=== PATIENT | female | born 1985 | race Caucasian/White ===

== ENCOUNTER 2022-12-06 09:33 | Outpatient (OUT) | payer OTHER, SELFPAY ==
--- NOTE | 2022-12-06 09:33 | US_ITS ---
The [address] [address] Patient Name: WATSON KWON MRN: [id number] date: 1985 Sex: F Assigned Patient Location: US Current Patient Location: US Accession/Order Number: [id number] Exam Date: 12/06/2022 09:32 Report Date: 12/06/2022 10:20 At the request of: VICKY SOTO Procedure: US OB transvaginal EXAMINATION: US OB transvaginal HISTORY: MISSED PERIOD COMPARISON: No relevant comparison available. FINDINGS: GESTATIONAL SAC: Present and normal appearing. YOLK SAC: Present and normal appearing. POLE: Present and normal appearing. CARDIAC: Present. UTERUS: Normal size and appearance. OVARIES: Right: Corpus lutein cyst. Left: Not seen. CERVIX: 4.1 cm in length and closed. CUL-DE-SAC: Normal. OTHER: None. AGE BY LMP: 9 weeks 4 days [place] BY LMP: 07/07/2023 AGE BY US CRL: 9 weeks 5 days [place] BY US CRL: 07/06/2023 IMPRESSION: 1. Single live intrauterine . Electronically authenticated by: MARK NI Date: 12/06/2022 10:20
== END 2022-12-06 09:34 | disposition home or self-care (01) ==
LOC: US 09:33
PROVIDERS: Visit Provider Obstetrics & Gynecology
DX: Z34.91 Encounter for supervision of normal pregnancy, unspecified, first trimester (principal); Z3A.09 9 weeks gestation of pregnancy; N92.6 Irregular menstruation, unspecified
CPT/HCPCS: 76817

== ENCOUNTER 2022-12-13 09:40 | Outpatient (OUT) | payer OTHER, SELFPAY ==
[2022-12-13 10:28] LABS: Basophils Percent Auto 0.5 % (0.2-2.0); Eosinophils Absolute Auto 0.1 10^3/uL (0.0-0.7); Hemoglobin 13.7 g/dL (12.0-16.0); Immature Granulocytes Abs Auto 0.04 10^3/uL (0.00-0.03); Immature Granulocytes Pct Auto 0.5 % (0.0-0.5); Lymphocytes Absolute Auto 1.3 10^3/uL (1.2-3.8); Lymphocytes Percent Auto 15.1 % (20.5-60.0); Mean Corpuscular HGB Conc 35.1 g/dL (29.9-35.2); Mean Corpuscular Hemoglobin 30.1 pg (26.7-34.0); Mean Corpuscular Volume 85.7 fL (81.0-99.0); Mean Platelet Volume 10.3 fL (9.5-13.5); Monocytes Absolute Auto 0.5 10^3/uL (0.3-0.8); Monocytes Percent Auto 5.9 % (1.7-12.0); Neutrophils Absolute Auto 6.7 10^3/uL (1.4-6.5); Platelet Count 229 10^3/uL (150-450); Red Blood Count 4.55 10^6/uL (4.20-5.40); Red Cell Distribution Width 12.9 % (11.0-15.0); White Blood Count 8.7 10^3/uL (4.0-11.0)
[2022-12-13 11:06] LABS: Estimated Average Glucose 100 mg/dL; Glycohemoglobin A1C 5.1 % (4.5-6.2)
[2022-12-13 13:28] LABS: BOX Test Sent Out YES
[2022-12-14 05:07] LABS: HCV Ab Non Reactive (Non Reactive); HIV Ab/p24 Ag Screen Non Reactive (Non Reactive); Rubella Antibodies, IgG 1.52 index (Immune >0.99)
[2022-12-14 06:08] LABS: HBsAg Screen Negative (Negative)
[2022-12-14 10:08] LABS: Rapid Plasma Reagin, Quant Non Reactive (NonRea<1:1)
== END 2022-12-13 09:41 | disposition home or self-care (01) ==
LOC: LAB 09:40
PROVIDERS: Visit Provider Obstetrics & Gynecology
DX: N92.5 Other specified irregular menstruation (principal); Z34.80 Encounter for supervision of other normal pregnancy, unspecified trimester; Z31.430 Encounter of female for testing for genetic disease carrier status for procreative management
CPT/HCPCS: 36415; 83036; 84443; 85025; 86592; 86762; 86803; 86850; 86900; 86901; 87086; 87340; 87389

== ENCOUNTER 2023-02-18 08:56 | Outpatient (OUT) | payer OTHER, SELFPAY ==
--- NOTE | 2023-02-18 | US_ITS ---
[address] [address] Patient Name: WATSON KWON MRN: [id number] date: 1985 Sex: F Assigned Patient Location: US Current Patient Location: Accession/Order Number: [id number] Exam Date: 02/18/2023 09:01 Report Date: 02/18/2023 17:43 At the request of: VICKY SOTO Procedure: US OB anatomy EXAMINATION: US OB anatomy HISTORY: ANATOMY COMPARISON: No relevant comparison available. TECHNIQUE: Transabdominal sonographic examination was performed for obstetrical and evaluation. FINDINGS: Number: 1 Heart Rate: 142.0 bpm H.B. /min Amniotic Fluid Volume: Subjectively normal position: Transverse lie, transverse presentation Placental Location: FUNDAL, grade 0. Placental edge 4.9 cm from the internal cervical os Cervix Length: 4 cm , closed Normal anatomy: Lateral ventricles, cerebellum, posterior fossa, orbits, diaphragm, stomach, abdominal cord insertion, bladder, umbilical arteries, extremities Suboptimal visualization, nose/lips, four-chamber heart Nonvisualized anatomy: RVOT, LVOT, kidneys, three-vessel cord, lumbar spine BIOMETRY: BPD: 4.7 cm 20 weeks 1 days , 48% HC: 17.5 cm 20 weeks 0 days, 34% AC: 14.8 cm 20 weeks 0 days, 41% FL: 3.3 cm 20 weeks 3 days, 52% EFW:338.4 grams; 12 ounces, 49% FL/AC: 22.5 FL/BPD: 71.5 HC/AC: 1.2 GESTATIONAL AGE: Age by EDC: 20 weeks 1 days [place] by EDC: 07/07/2023 Age by current US: 20 weeks 1 days [place] by current US: 07/07/2023 US/US OB anatomy IMPRESSION: Suboptimal anatomy detailed above, otherwise normal anatomy scan *Reference: [facility] Practice Guideline for the performance of Obstetric Ultrasound Examinations, March 16, 2007. Electronically authenticated by: LOWELL BARRAZA Date: 02/18/2023 17:43
== END 2023-02-18 08:57 | disposition home or self-care (01) ==
LOC: US 08:58
PROVIDERS: Visit Provider Obstetrics & Gynecology
DX: Z34.92 Encounter for supervision of normal pregnancy, unspecified, second trimester (principal)
CPT/HCPCS: 76805; 76817

== ENCOUNTER 2023-03-05 12:59 | Outpatient (OUT) | payer OTHER, SELFPAY ==
--- NOTE | 2023-03-05 13:01 | US_ITS ---
[address] [address] Patient Name: WATSON KWON MRN: [id number] date: 1985 Sex: F Assigned Patient Location: US Current Patient Location: US Accession/Order Number: [id number] Exam Date: 03/05/2023 13:02 Report Date: 03/05/2023 15:27 At the request of: VICKY SOTO Procedure: US OB incomplete anatomy EXAM: US OB incomplete anatomy HISTORY: INCOMPLETE ANATOMY COMPARISON: Ultrasound OB anatomy 02/18/2023 TECHNIQUE: Transabdominal ultrasound evaluation. FINDINGS: Presentation: Cephalic Heart rate: 130 bpm Anatomy: Hard palate, lumbar spine, cardiac outflow tracts, three-vessel cord, kidneys, four-chamber heart. No appreciable abnormality. GA: 22 weeks 2 days [place]: 07/07/2023 US/US OB incomplete anatomy IMPRESSION: 1. Single live intrauterine . 2. Adequate visualization of the above listed structures; no appreciable abnormality. Electronically authenticated by: MARK NI Date: 03/05/2023 15:27
== END 2023-03-05 13:00 | disposition home or self-care (01) ==
LOC: US 12:59
PROVIDERS: Visit Provider Obstetrics & Gynecology
DX: Z36.2 Encounter for other antenatal screening follow-up (principal)
CPT/HCPCS: 76815

== ENCOUNTER 2023-03-27 07:42 | Outpatient (OUT) | payer OTHER, SELFPAY ==
[2023-03-27 09:21] LABS: Glucose 1 Hour 109 mg/dL
[2023-03-27 09:23] LABS: Basophils Percent Auto 0.3 % (0.2-2.0); Eosinophils Absolute Auto 0.1 10^3/uL (0.0-0.7); Eosinophils Percent Auto 0.8 % (0.9-7.0); Hematocrit 34.3 % (36.0-48.0); Hemoglobin 11.7 g/dL (12.0-16.0); Immature Granulocytes Abs Auto 0.05 10^3/uL (0.00-0.03); Immature Granulocytes Pct Auto 0.7 % (0.0-0.5); Lymphocytes Absolute Auto 1.2 10^3/uL (1.2-3.8); Lymphocytes Percent Auto 15.4 % (20.5-60.0); Mean Corpuscular HGB Conc 34.1 g/dL (29.9-35.2); Mean Corpuscular Hemoglobin 31.2 pg (26.7-34.0); Mean Corpuscular Volume 91.5 fL (81.0-99.0); Mean Platelet Volume 10.4 fL (9.5-13.5); Monocytes Absolute Auto 0.5 10^3/uL (0.3-0.8); Monocytes Percent Auto 6.5 % (1.7-12.0); Neutrophils Absolute Auto 5.9 10^3/uL (1.4-6.5); Neutrophils Percent Auto 76.3 % (43.0-75.0); Platelet Count 205 10^3/uL (150-450); Red Blood Count 3.75 10^6/uL (4.20-5.40); Red Cell Distribution Width 12.2 % (11.0-15.0); White Blood Count 7.7 10^3/uL (4.0-11.0)
== END 2023-03-27 07:43 | disposition home or self-care (01) ==
PROVIDERS: Visit Provider Physician Assistant
DX: Z34.92 Encounter for supervision of normal pregnancy, unspecified, second trimester (principal)
CPT/HCPCS: 36415; 82950; 85025

== ENCOUNTER 2023-04-16 09:22 | Outpatient (OUT) | payer OTHER, SELFPAY ==
--- NOTE | 2023-04-16 09:24 | US_ITS ---
[address] [address] Patient Name: WATSON KWON MRN: [facility]:[id number] date: 1985 Sex: F Assigned Patient Location: US Current Patient Location: US Accession/Order Number: [id number] Exam Date: 04/16/2023 09:25 Report Date: 04/16/2023 16:53 At the request of: VICKY SOTO Procedure: US OB growth PROCEDURE: US OB growth HISTORY: SIZE INCONSISTENT WITH DATES COMPARISON: None. TECHNIQUE: Transabdominal sonographic examination was performed for obstetrical and evaluation. FINDINGS: Number: 1 Heart Rate: 145.0 bpm H.B. /min Amniotic Fluid Volume: 9.2 cm, oligohydramnios, largest pocket 3.6 cm position: Cephalic presentation, longitudinal lie Placental Location: Blank BIOMETRY: BPD: 7.3 cm 29 weeks 2 days , 72% HC: 27.4 cm 29 weeks 6 days , 68% AC:22.3 cm 26 weeks 5 days , 8% FL: 5.3 cm 28 weeks 1 days , 32% EFW: 1115.6 grams 2 lbs. 11 oz., 19% FL/AC: 23.8 FL/BPD: 72.6 HC/AC: 1.2 GESTATIONAL AGE: Age by EDC: 28 weeks 2 days [place] by EDC: 07/07/2023 Ultrasound Age: 28 weeks 4 days Ultrasound [place]: 07/05/2023 head measurements were suboptimal secondary to position US/US OB growth IMPRESSION: Oligohydramnios *Reference: [facility] Practice Guideline for the performance of Obstetric Ultrasound Examinations, March 16, 2007. Electronically authenticated by: LOWELL BARRAZA Date: 04/16/2023 16:53
== END 2023-04-16 09:23 | disposition home or self-care (01) ==
LOC: US 09:22
PROVIDERS: Visit Provider Obstetrics & Gynecology
DX: O26.843 Uterine size-date discrepancy, third trimester (principal); O41.03X0 Oligohydramnios, third trimester, not applicable or unspecified; Z3A.28 28 weeks gestation of pregnancy
CPT/HCPCS: 76816

== ENCOUNTER 2023-04-16 11:41 | Observation (INO) | payer OTHER, SELFPAY ==
[2023-04-16 12:40] VITALS: BP 139/77; PULSE 78
[2023-04-16] MEDS: 0.9 % SODIUM CHLORIDE 1,000 ML 1000 ML IV ×2 (12:40→13:39)
[2023-04-16 15:45] VITALS: BP 133/77; PULSE 86
--- NOTE | 2023-04-16 19:37 | W.PC.ACHO ---
Registration Status: ADM JEAN MARIE Primary Language: Preferred Language: Active Medications Generic Name Dose Route Start Last Admin Trade Name Octavio PRN Reason Stop Dose Admin Labetalol HCl 200 mg 04/16/23 21:00 Labetalol Hcl 200 Mg Tablet PO BID MICKY Diet Category Date Time Status Regular Consistency Diet Diet 04/16/23 12:18 Active IV Insertion/Site Date of IV Line Insertion [ 04/16/23 Short PIV (<1.75 in) 20g left Wrist] IV Insertion Time [Short PIV ( 12:38 <1.75 in) 20g left Wrist]
[2023-04-16 20:09] VITALS: BP 143/84; PULSE 85
[2023-04-16 20:10] VITALS: TEMP 37.2
[2023-04-16] MEDS: 0.9 % SODIUM CHLORIDE 1,000 ML 150 ML IV (20:18)
[2023-04-16] MEDS: LABETALOL HCL 200 MG TABLET PO (20:52)
[2023-04-16 22:54] VITALS: BP 134/68; PULSE 73
[2023-04-17] MEDS: 0.9 % SODIUM CHLORIDE 1,000 ML 150 ML IV (03:00)
--- NOTE | 2023-04-17 08:00 | US_ITS ---
[address] [address] Patient Name: WATSON KWON MRN: [id number] date: 1985 Sex: F Assigned Patient Location: US Current Patient Location: US Accession/Order Number: [id number] Exam Date: 04/17/2023 07:35 Report Date: 04/17/2023 17:37 At the request of: VICKY SOTO Procedure: US OB BPP w non-stress EXAMINATION: US OB BPP w non-stress HISTORY: oligo COMPARISON: No relevant comparison available. TECHNIQUE: Ultrasound biophysical profile was performed in the radiology department. . FINDINGS: BREATHING MOVEMENTS: 2.0 GROSS BODY MOVEMENTS: 2.0 TONE: 2.0 QUALITATIVE AMNIOTIC FLUID VOLUME: 2.0 PRESENTATION: CEPHALIC HEART RATE: 140.6 bpm H.B./min AMNIOTIC FLUID VOLUME: 11.7 cm cm GESTATIONAL AGE: 28 weeks 3 days CONCLUSION: Total biophysical profile score: 8.0 Electronically authenticated by: LOWELL BARRAZA Date: 04/17/2023 17:37
== END 2023-04-17 09:10 | disposition home or self-care (01) ==
PROVIDERS: Admitting Provider Obstetrics & Gynecology; Visit Provider Obstetrics & Gynecology
DX: O26.843 Uterine size-date discrepancy, third trimester (principal); O41.03X0 Oligohydramnios, third trimester, not applicable or unspecified; Z3A.28 28 weeks gestation of pregnancy
CPT/HCPCS: 59025; 76816; 76818; G0378; G0379

== ENCOUNTER 2023-04-21 07:50 | Outpatient (OUT) | payer OTHER, SELFPAY ==
[2023-04-21 15:56] VITALS: BP 142/93; PULSE 86
[2023-04-21 16:07] VITALS: BP 139/89; PULSE 89
--- NOTE | 2023-04-21 16:12 | US_ITS ---
[address] [address] Patient Name: WATSON KWON MRN: [facility]:[id number] date: 1985 Sex: F Assigned Patient Location: [facility] Current Patient Location: Accession/Order Number: [id number] Exam Date: 04/21/2023 16:20 Report Date: 04/22/2023 16:48 At the request of: VICKY SOTO Procedure: US OB BPP w non-stress EXAMINATION: US OB BPP w non-stress HISTORY: OLIGOHYDRAMINOS COMPARISON: No relevant comparison available. TECHNIQUE: Ultrasound biophysical profile was performed in the radiology department. FINDINGS: BREATHING MOVEMENTS: 2.0 GROSS BODY MOVEMENTS: 2.0 TONE: 2.0 QUALITATIVE AMNIOTIC FLUID VOLUME: 2.0 PRESENTATION: CEPHALIC HEART RATE: 133.0 bpm H.B./min AMNIOTIC FLUID VOLUME: 12.9 cm cm GESTATIONAL AGE: 29 weeks 0 days CONCLUSION: Total biophysical profile score: 8.0 Electronically authenticated by: LOWELL BARRAZA Date: 04/22/2023 16:48
== END 2023-04-21 16:50 | disposition home or self-care (01) ==
LOC: US 07:51 → FBC 15:51
PROVIDERS: Visit Provider Obstetrics & Gynecology
DX: O41.03X0 Oligohydramnios, third trimester, not applicable or unspecified (principal); Z3A.29 29 weeks gestation of pregnancy
CPT/HCPCS: 76818

== ENCOUNTER 2023-04-24 07:16 | Outpatient (OUT) | payer OTHER, SELFPAY ==
[2023-04-24 15:58] VITALS: BP 144/85; PULSE 86
== END 2023-04-24 16:38 | disposition home or self-care (01) ==
LOC: FBCO 07:17 → FBC 15:51
PROVIDERS: Visit Provider Obstetrics & Gynecology
DX: O41.03X0 Oligohydramnios, third trimester, not applicable or unspecified (principal); Z3A.29 29 weeks gestation of pregnancy
CPT/HCPCS: 59025

== ENCOUNTER 2023-04-28 07:30 | Outpatient (OUT) | payer OTHER, SELFPAY ==
--- NOTE | 2023-04-28 | US_ITS ---
[address] [address] Patient Name: WATSON KWON MRN: [facility]:[id number] date: 1985 Sex: F Assigned Patient Location: US Current Patient Location: Accession/Order Number: [id number] Exam Date: 04/28/2023 16:00 Report Date: 04/29/2023 15:37 At the request of: VICKY SOTO Procedure: US OB BPP w non-stress EXAMINATION: US OB BPP w non-stress HISTORY: OLIGOHYDRAMNIOS COMPARISON: Ultrasound biophysical 04/21/2023 TECHNIQUE: Ultrasound biophysical profile was performed in the radiology department. BREATHING MOVEMENTS: 2.0 GROSS BODY MOVEMENTS: 2.0 TONE: 2.0 QUALITATIVE AMNIOTIC FLUID VOLUME: 2.0 PRESENTATION: CEPHALIC HEART RATE: 134.3 bpm bpm. AMNIOTIC FLUID VOLUME: 16.1 cm GESTATIONAL AGE: 30 weeks 0 days CONCLUSION: Total biophysical profile score 8.0. Electronically authenticated by: MARK NI Date: 04/29/2023 15:37
[2023-04-28 16:32] VITALS: BP 140/80; PULSE 76
--- OUTSIDE RECORDS SUMMARY | 2023-06-03 17:34 | XMS_ITS | CCD ---
Author Name Unknown Address [address] [place] [address] Organization [facility] Care Team Providers Care Broadcast Technician Name Role Phone PAY ., DR KING Attending Unavailable PAY ., DR KING Consulting Unavailable PAY ., DR KING Admitting Unavailable BRITTANY ., DR PERRY Attending Unavailable BRITTANY ., DR PERRY Consulting Unavailable BRITTANY ., DR PERRY Admitting Unavailable BRITTANY, VICKY Attending Unavailable KRYSTAL, DOMINICK Attending Unavailable KRYSTAL, DOMINICK Attending Unavailable Problems Active Problems Problem Classification Problem Date Documented Date Episodic/Chronic Immunizations and screening for infectious disease (1 source) Encounter for screening for human papillomavirus (HPV); Translations: [ENC SCREENING HUMAN PAPILLOMAVIRUS] Onset: 10-13-2022 Episodic Other screening for suspected conditions (not mental disorders or infectious disease) (4 sources) Encounter for screening for malignant neoplasm of cervix; Translations: [ENC SCREENING MALIG NEOPLASM CERV] Onset: 10-10-2022 Episodic Unclassified (3 sources) ENC OBS SUSP INSERTED FB RULED OUT; Translations: [ENC OBS SUSP INSERTED FB RULED OUT] Onset: 10-07-2022 Past or Other Problems Problem Classification Problem Date Documented Da te Episodic/Chronic Unclassified (1 source) ENC OBS SUSP INSERTED FB RULED OUT; Translations: [ENC OBS SUSP INSERTED FB RULED OUT] Onset: 10-04-2022 Results Test Name Value Interpretation Reference Range Facil ity PAP ACOG PANEL 2: 30 to 65on 10-17-2022 . . Normal [facility] Comment on above: Result Comment: Perf ormed at: WB Performed By: #### 4 [id number] #### [facility] [address] [place], [place] [address] Dr. Hebert Noyola Age Gdln ACOG Testing 30-65 Normal [facility] Comment on above: Performed By: #### 4 [id number] #### [facility] [address] [place] [address] Dr. Hebert Noyola DIAGNOSIS: Comment Normal [facility] Comment on above: Result Comment: NEGA TIVE FOR INTRAEPITHELIAL LESION OR MALIGNANCY. Performed at: WB Performed By: #### 4 [id number] #### [facility] [address] [place] [address] Dr. Hebert Noyola HPV Aptima Negative Normal Negative The [facility] Comment on above: Result Comment: This nucleic acid amplification test detects fourteen high-risk HPV types (16,18,31,33,35,39,45,51,52,56,58,59,66,68) without differentiation. Performed at: =G Performed By: #### 4 [id number] #### [facility] [address] [place] [address] Dr. Hebert Noyola HPV Genotype Reflex Comment Normal [facility] Comment on above: Result Comment: Crit eria not met, HPV Genotype not performed. Performed at: WB Performed By: #### 4 [id number] #### [facility] [address] [place] [address] Dr. Hebert Noyloa Methodology: Comment Normal [facility] Comment on above: Result Comment: This liquid based ThinPrep(R) pap test was screened with the use of an image guided system. Performed at: WB Performed By: #### 4 [id number] #### [facility] [address] [place] [address] Dr. Hebert Noyola Note: Comment Normal [facility] Comment on above: Result Comment: The Pap smear is a screening test designed to aid in the detection of premalignant and malignant conditions of the uterine cervix. It is not a diagnostic procedure and should not be used as the sole means of detecting cervical cancer. Both false-positive and false-negative reports do occur. . Performed at: WB Performed By: #### 4 [id number] #### [facility] [address] [place] [address] Dr. Hebert Noyola Performed by: Comment Normal The [facility] Comment on above: Result Comment: Elizabeth Batres, Senior Risk Manager (ASCP) Performed at: WB Performed By: #### 4 [id number] #### [facility] [address] [place] [address] Dr. Hebert Noyola Specimen adequacy: Comment Normal The [facility] Comment on above: Result Comment: Sati sfactory for evaluation. Endocervical and/or squamous metaplastic cells (endocervical component) are present. Performed at: WB Performed By: #### 4 [id number] #### [facility] [address] [place] [address] Dr. Hebert Noyola CHLAMYDIA/GONOCOCCUS TREASURE ( AB/URINE/PAPon 10-08-2022 Chlamydia trachomatis, TREASURE Negative Normal Negative [facility] Comment on above: Performed By: #### C T/NGNA #### [facility] [address] [place] [address] Dr. Hebert Noyola Neisseria gonorrhoeae, TREASURE Negative Normal Negative [facility] Comment on above: Performed By: #### C T/NGNA #### [facility] [address] [place] [address] Dr. Hebert Noyola ER URINE PROFILEon 3 Bilirubin Ql (U) Negative Normal NEGATIVE [facility] Comment on above: Performed By: #### EVARISTO BOWERS PREGU #### [facility] [address] [place] [address] Dr. Hebert Noyola Clarity (U) CLEAR Normal CLEAR [facility] Comment on above: Performed By: #### EVARISTO BOWERS PREGU #### [facility] [address] [place] [address] Dr. Hebert Noyola Color (U) LT. YELLOW Normal YELLOW [facility] Comment on above: Performed By: #### EVARISTO BOWERS PREGU #### [facility] [address] [place] [address] Dr. Hebert Noyola ERUAHD A micrscopic examina tion will be performed if indicated. Normal The [facility] Comment on above: Performed By: #### EVARISTO BOWERS PREGU #### [facility] [address] [place] [address] [address] Hebert Noyola Glucose Ql (U) Negative Normal NEGATIVE The [facility] Comment on above: Performed By: #### EVARISTO BOWERS, PREGU #### [facility] [address] [place] [address] [address] Hebert Noyola Hemoglobin Ql (U) TRACE-INTACT Abnormal NEGATIVE [facility] Comment on above: Performed By: #### EVARISTO BOWERS, PREGU #### [facility] [address] [place] [address] [address] Hebert Noyola Ketones Ql (U) Negative Normal NEGATIVE The [facility] Comment on above: Performed By: #### EVARISTO BOWERS PREGU #### [facility] [address] [place] [address] Dr. Hebert Noyola LEUKOCYTES Negative Normal NEGATIVE The [facility] Comment on above: Performed By: #### EVARISTO BOWERS, PREGU #### [facility] [address] [place] [address] [address] Hebert Noyola Nitrite Ql (U) Negative Normal NEGATIVE The [facility] Comment on above: Performed By: #### EVARISTO BOWERS PREGU #### [facility] [address] [place] [address] [address] Hebert Noyola pH (U) 7.0 [pH] Normal 5-9 The [facility] Comment on above: Performed By: #### EVARISTO BOWERS PREGU #### [facility] [address] [place] [address] [address] Hebert Noyola SPEC GRAVITY 1.015 Normal 1.005-<=1.025 The [facility] Comment on above: Performed By: #### EVARISTO BOWERS PREGU #### [facility] [address] [place] [address] [address] Hebert Noyola UA PROTEIN Negative Normal NEGATIVE/ TRACE [facility] Comment on above: Performed By: #### EVARISTO BOWERS PREGU #### [facility] [address] [place] [address] [address] Hebert Noyola UR MICRO IND INDICATED Normal [facility] Comment on above: Performed By: #### EVARISTO BOWERS, PREGU #### [facility] [address] [place] [address] [address] Hebert Noyola Urobilinogen Qn (U) 0.2 {Maddy'U}/dL Normal 0.2 - 1. 0 The [facility] Comment on above: Performed By: #### EVARISTO BOWERS, PREGU #### [facility] [address] [place] [address] [address] Hbeert Noyola URon 10-04-2022 , QUAL Negative Normal NEGATIVE [facility] Comment on above: Performed By: #### EVARISTO BOWERS, PREGU #### [facility] [address] [place] [address] Dr. Hebert Noyola URINE MICROSCOPIC ONLYon BACTERIA NONE SEEN Normal NONE SEEN The [facility] Comment on above: Performed By: #### EVARISTO BOWERS, PREGU #### [facility] [address] [place] [address] Dr. Hebert Noyola Bacteria identified Cx Nom (U) NOT INDICATED Normal [facility] Comment on above: Performed By: #### EVARISTO BOWERS, PREGU #### [facility] [address] [place] [address] Dr. Hebert Noyola CAST NONE SEEN Normal NONE SEEN [facility] Comment on above: Performed By: #### EVARISTO BOWERS, PREGU #### [facility] [address] [place] [address] Dr. Hebert Noyola Crystals LM Nom (Urine sed) NONE SEEN Normal NONE SEE N The [facility] Comment on above: Performed By: #### EVARISTO BOWERS, PREGU #### [facility] [address] [place] [address] Dr. Hebert Noyola Epithelial cells LM Ql (Urine sed) FEW Abnormal N ONE SEEN /RARE The [facility] Comment on above: Performed By: #### EVARISTO BOWERS, PREGU #### [facility] [address] [place] [address] [address] Hebert Noyola MUCOUS NONE SEEN Normal NONE SEEN [facility] Comment on above: Performed By: #### E EVARISTO TYLER, PREGU #### [facility] [address] [place] [address] [address] Hebert Noyola RBC 0-2 Normal 0-[address] [facility] Comment on above: Performed By: #### EVARISTO BOWERS, PREGU #### [facility] [address] [place] [address] [address] Hebert Noyola WBC NONE SEEN Normal NONE SEEN The [facility] Comment on above: Performed By: #### EVARISTO BOWERS, PREGU #### [facility] [address] [place] [address] Dr. Hebert Noyola WET PREPon 10-04-2022 CLUE CELLS NONE SEEN Normal NONE SEEN The [facility] Comment on above: Performed By: #### W P #### [facility] [address] [place] [address] [address] Hebert Noyola FUNGAL ELEMENTS NONE SEEN Normal NONE SEEN The [facility] Comment on above: Performed By: #### W P #### [facility] [address] [place] [address] [address] Hebert Noyola RBC -WET PREP FEW Abnormal NONE SEEN The [facility] Comment on above: Performed By: #### W P #### [facility] [address] [place] [address] [address] Hebert Noyola TRICHOMONAS NONE SEEN Normal NONE SEEN The [facility] Comment on above: Performed By: #### W P #### [facility] [address] [place] [address] Dr. Hebert Noyola WBC- WET PREP FEW Abnormal NONE SEEN The [facility] Comment on above: Performed By: #### W P #### [facility] [address] [place] [address] [address] Hebert Noyola WET PREP BACTERIA FEW Abnormal NONE SEEN The [facility] Comment on above: Performed By: #### W P #### [facility] [address] [place] [address] [address] Hebert Noyola Physician Orderon 02-14-2021 Physician Order [id number]:127 Normal [facility] Coding Summary.on 09-02-2020 Coding Summary. CODING DATE: 021 FINAL [facility] STATUS: Home (Routine DC) PAYOR: [place] ADMIT DX: REASON FOR VISIT DX: Z11.51 Encounter for screening for human papillomavirus (HPV) FINAL DX: PRINCIPAL: Z11.51 Encounter for screening for human papillomavirus (HPV) SECONDARY: Z01.419 Encounter for gynecological examination (general) (routine) without abnormal findings PYMT PROC APC STAT DESCRIPTION DOCTOR NAME DATE NOTE: The code number assigned matches the documented diagnosis and / or procedure in the patient's chart. However, the narrative phrase printed from the coding software may appear abbreviated, or result in slightly different terminology. Coded By: Amber Bautista Date Saved: 09/01/2020 10:25 pm Normal [facility] PAP [id number] 08-30-2020 Cytology report Cyto stain Doc (Cvx/Vag) Note Invalid Interpretation Code [facility] Comment on above: Result Comment: TESTS RESULT FLAG UNITS REF RANGE LAB Clinician Provided Cytology Information Source.............Endocervix LMP / Prev Treat...CVP=[id number] No. of containers..01 ThinPrep Vial DIAGNOSIS: 01 NEGATIVE FOR INTRAEPITHELIAL LESION OR MALIGNANCY. THIS SPECIMEN WAS RESCREENED PART OF OUR SLASHER TENDER HELPER PROGRAM. 01 Satisfactory for evaluation. No endocervical component is identified. 01 Mainor Batres, Senior Risk Manager (ASCP) 01 Kristan Perez, Supervisory Senior Risk Manager (ASCP) 01 Note 01 The Pap smear is a screening test designed to aid in the detection of premalignant and malignant conditions of the uterine cervix. It is not a diagnostic procedure and should not be used as the sole means of detecting cervical cancer. Both false-positive and false-negative reports do occur. Test Methodology: Note 01 This liquid based ThinPrep(R) pap test was screened with the use of an image guided system. FLAG LEGEND: L-Low Normal,H-High Normal,LL-Alert Low,HH-Alert High <-Panic Low,>-Panic High,A-Abnormal,AA-Critical Abnormal Performed at: [address] [id number] Amy Shelton MD, Performed By: #### 1 [id number] #### [facility] [address] [place] [address] HPV 16+18+31+33+35+39+45+51+52+56+58+59+66+68 DNA Probe+sig amp Ql (Cvx) Negative Invalid Interpretation Code Negative [facility] Comment on above: Result Comment: This nucleic acid amplification test detects fourteen high-risk HPV types (16,18,31,33,35,39,45,51,52,56,58,59,66,68) without differentiation. Performed at: WB [facility] [address] [id number] MD Cat Reyes Performed at: =G [facility] [id number] MD Cat Reyes Performed By: #### 1 [id number] #### [facility] [address] [place] [address] PAP [id number] 08-23-2020 Collection Technique BRUSH-SPATULA Normal [facility] Comment on above: Performed By: #### 1 [id number] #### [facility] [address] [place] [address] Gynecological Body Site ENDOCERVIX Normal [facility] Comment on above: Performed By: #### 1 [id number] #### [facility] [address] [place] [address] LMP or Menopause Date [id number] Invalid Interpretation Co de [facility] Comment on above: Performed By: #### 1 [id number] #### [facility] [address] [place] [id number] Previous Cytology Negative Normal [facility] Comment on above: Performed By: #### 1 [id number] #### [facility] [address] [place] [address] Previous Treatment NONE Normal [facility] Comment on above: Performed By: #### 1 [id number] #### [facility] [address] [place] [address] Physician Orderon 08-23-2020 Physician Order [id number]:127 Normal [facility] Coding Summary.on 08-10-2020 Coding Summary. CODING DATE: 021 FINAL [facility] STATUS: Home (Routine DC) PAYOR: [employer] ADMIT DX: REASON FOR VISIT DX: U07.1 COVID-19 FINAL DX: PRINCIPAL: U07.1 COVID-19 SECONDARY: R09.81 Nasal congestion R43.2 [facility] PYMT PROC APC STAT DESCRIPTION DOCTOR NAME DATE NOTE: The code number assigned matches the documented diagnosis and / or procedure in the patient's chart. However, the narrative phrase printed from the coding software may appear abbreviated, or result in slightly different terminology. Coded By: Tisha Orozco CphT Date Saved: 08/10/2020 05:40 pm Normal [facility] SARS-CoV-2, NAAon 08-09-2020 SARS-CoV-2 (COVID-19) RNA TREASURE+probe Ql (Resp) Detected Abnormal Not Detected [facility] Comment on above: Result Comment: This nucleic acid amplification test was developed and its performance characteristics determined by [employer]. Nucleic acid amplification tests include RT-PCR and TMA. This test has not been FDA cleared or approved. This test has been authorized by FDA under an Emergency Use Authorization (EUA). This test is only authorized for the duration of time the declaration that circumstances exist justifying the authorization of the emergency use of in vitro diagnostic tests for detection of SARS-CoV-2 virus and/or diagnosis of COVID-19 infection under section 564(b)(1) of the Act, 21 U.S.C. 360bbb-3(b) (1), unless the authorization is terminated or revoked sooner. When diagnostic testing is negative, the possibility of a false negative result should be considered in the context of a patient's recent exposures and the presence of clinical signs and symptoms consistent with COVID-19. An individual without symptoms of COVID-19 and who is not shedding SARS-CoV-2 virus would expect to have a negative (not detected) result in this assay. Performed at: [facility] [id number] PhD Tae Lynne Performed By: #### S ARS-CoV-2, TREASURE #### [facility] [address] [place] [address] Physician Orderon 08-08-2020 Physician Order [id number]:127 Normal [facility] Encounters Encounter Date Encounter Type Care Provider Facility Start: 05-28-2023 End: 05-28-2023 ambulatory DMOINICK RICE Not Available Start: 05-14-2023 End: 05-14-2023 ambulatory DOMINICK RICE Not Available Start: 04-30-2023 End: 04-30-2023 ambulatory VICKY SOTO Not Available Start: 10-10-2022 End: 10-10-[address] VICKY SOTO . Facility: Start: 10-04-2022 End: 10-04-[address] FERNANDO COON . Facility:[facility] Payers Date Payer Category Payer Unknown [id number] [id number] [id number] 1985 Unknown [id number] [id number] [id number] 1986 Unknown [id number] 1986 Unknown [id number] 1986 Unknown [id number] 1959 Private Health Insurance [id number] Summary Purpose Family History No Family History Records FoundNo Family History Records FoundNo Family History Records Found Advance Directives No Advanced Directives Records FoundNo Advanced Directives Records FoundNo Advanced Directives Records Found Additional Source Comments INFORMATION SOURCE (unrecogn ized section and content) DATE CREATED AUTHOR 02/15/[address] [facility] DATE CREATED AUTHOR AUTHOR'S ORGANIZ ATION 10/18/2022 [facility] DATE CREATED AUTHOR AUTHOR'S ORGANIZ ATION 05/30/2023 [facility] EPIC FOR RECORDS PERTAINING TO PATIENTS WHO ARE OR HAVE BEEN ENROLLED IN A CHEMICAL DEPENDENCY/SUBSTANCEABUSE PROGRAM, SOME INFORMATION MAY BE OMITTED. This clinical summary was aggregated from multiple sources. Caution should be exercised in using it in the provision of clinical care. This summary normalizes information from multiple sources, and as a consequence, information in this document may materially change the coding, format and clinical context of patient data. In addition, data may be omitted in some cases. CLINICAL DECISIONS SHOULD BE BASED ON THE PRIMARY CLINICAL RECORDS. [employer] provides no warranty or guarantee of the accuracy or completeness of information in this document.
== END 2023-04-28 17:09 | disposition home or self-care (01) ==
LOC: US 07:30 → FBC 15:56
PROVIDERS: Visit Provider Obstetrics & Gynecology
DX: O41.03X0 Oligohydramnios, third trimester, not applicable or unspecified (principal); Z3A.30 30 weeks gestation of pregnancy
CPT/HCPCS: 76818

== ENCOUNTER 2023-05-01 07:27 | Outpatient (OUT) | payer OTHER, SELFPAY ==
[2023-05-01 15:57] VITALS: BP 146/84; PULSE 96
--- OUTSIDE RECORDS SUMMARY | 2023-06-03 19:55 | XMS_ITS | CCD ---
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 . Normal [facility] Comment on above: Result Comment: Perf ormed at: WB Performed By: #### 4 [id number] #### [facility] [address] [place], [place] [address] Dr. Hebert Noyola Age Gdln ACOG Testing 30-65 Normal [facility] Comment on above: Performed By: #### 4 [id number] #### [facility] [address] [place] [address] Dr. Hebert Noyola DIAGNOSIS: Comment Normal [facility] Comment on above: Result Comment: NEGA TIVE FOR INTRAEPITHELIAL LESION OR MALIGNANCY. Performed at: WB Performed By: #### 4 [id number] #### [facility] [address] [place] [address] Dr. Hebert Noyola HPV Aptima Negative Normal Negative [facility] Comment on above: Result Comment: This nucleic acid amplification test detects fourteen high-risk HPV types (16,18,31,33,35,39,45,51,52,56,58,59,66,68) without differentiation. Performed at: =G Performed By: #### 4 [id number] #### [facility] [address] [place] [address] Dr. Hebert Noyola HPV Genotype Reflex Comment Normal [facility] Comment on above: Result Comment: Crit eria not met, HPV Genotype not performed. Performed at: WB Performed By: #### 4 [id number] #### [facility] [address] [place] [address] Dr. Hebert Noyola Methodology: Comment Normal [facility] Comment on above: Result Comment: This liquid based ThinPrep(R) pap test was screened with the use of an image guided system. Performed at: WB Performed By: #### 4 [id number] #### [facility] [address] [place] [address] Dr. Hebert Noyola Note: Comment Normal [facility] Comment on above: Result Comment: The Pap smear is a screening test designed to aid in the detection of premalignant and malignant conditions of the uterine cervix. It is not a diagnostic procedure and should not be used as the sole means of detecting cervical cancer. Both false-positive and false-negative reports do occur. . Performed at: WB Performed By: #### 4 [id number] #### [facility] [address] [place] [address] Dr. Hebert Noyola Performed by: Comment Normal [facility] Comment on above: Result Comment: Elizabeth Batres, Security Patrol Officer (ASCP) Performed at: WB Performed By: #### 4 [id number] #### [facility] [address] [place] [address] Dr. Hebert Noyola Specimen adequacy: Comment Normal [facility] Comment on above: Result Comment: Sati sfactory for evaluation. Endocervical and/or squamous metaplastic cells (endocervical component) are present. Performed at: WB Performed By: #### 4 [id number] #### [facility] [address] [place] [address] Dr. Hebert Noyola CHLAMYDIA/GONOCOCCUS TREASURE ( AB/URINE/PAPon 10-08-2022 Chlamydia trachomatis, TREASURE Negative Normal Negative [facility] Comment on above: Performed By: #### C T/NGNA #### [facility] [address] [place] [address] Dr. Hebert Noyola Neisseria gonorrhoeae, TREASURE Negative Normal Negative [facility] Comment on above: Performed By: #### C T/NGNA #### [facility] [address] [place] [address] Dr. Hebert Noyola ER URINE PROFILEon 3 Bilirubin Ql (U) Negative Normal NEGATIVE [facility] Comment on above: Performed By: #### EVARISTO BOWERS PREGU #### [facility] [address] [place] [address] Dr. Hebert Noyola Clarity (U) CLEAR Normal CLEAR [facility] Comment on above: Performed By: #### EVARISTO BOWERS PREGU #### [facility] [address] [place] [address] Dr. Hebert Noyoal Color (U) LT. YELLOW Normal YELLOW [facility] Comment on above: Performed By: #### EVARISTO BOWERS PREGU #### [facility] [address] [place] [address] Dr. Hebert Noyola ERUAHD A micrscopic examina tion will be performed if indicated. Normal [facility] Comment on above: Performed By: #### EVARISTO BOWERS PREGU #### [facility] [address] [place] [address] [address] Hebert Noyola Glucose Ql (U) Negative Normal NEGATIVE [facility] Comment on above: Performed By: #### EVARISTO BOWERS, PREGU #### [facility] [address] [address] [address] Hebert Noyola Hemoglobin Ql (U) TRACE-INTACT Abnormal NEGATIVE [facility] Comment on above: Performed By: #### EVARISTO BOWERS, PREGU #### [facility] [address] [address] [address] Hebert Noyola Ketones Ql (U) Negative Normal NEGATIVE [facility] Comment on above: Performed By: #### EVARISTO BOWERS PREGU #### [facility] [address] [place] [address] Dr. Hebert Noyola LEUKOCYTES Negative Normal NEGATIVE [facility] Comment on above: Performed By: #### EVARISTO BOWERS, PREGU #### [facility] [address] [address] [address] Hebert Noyola Nitrite Ql (U) Negative Normal NEGATIVE [facility] Comment on above: Performed By: #### EVARISTO BOWRES PREGU #### [facility] [address] [address] [address] Hebert Noyola pH (U) 7.0 [pH] Normal 5-9 [facility] Comment on above: Performed By: #### EVARISTO BOWERS PREGU #### [facility] [address] [address] [address] Hebert Noyola SPEC GRAVITY 1.015 Normal 1.005-<=1.025 [facility] Comment on above: Performed By: #### EVARISTO BOWERS PREGU #### [facility] [address] [address] [address] Hebert Noyola UA PROTEIN Negative Normal NEGATIVE/ TRACE [facility] Comment on above: Performed By: #### EVARISTO BOWERS PREGU #### [facility] [address] [address] [address] Hebert Noyola UR MICRO IND INDICATED Normal [facility] Comment on above: Performed By: #### EVARISTO BOWERS, PREGU #### [facility] [address] [address] [address] Hebert Noyola Urobilinogen Qn (U) 0.2 {Maddy'U}/dL Normal 0.2 - 1. 0 [facility] Comment on above: Performed By: #### EVARISTO BOWERS, PREGU #### [facility] [address] [address] [address] Hebert Noyola URon 10-04-2022 , QUAL Negative Normal NEGATIVE [facility] Comment on above: Performed By: #### EVARISTO BOWERS, PREGU #### [facility] [address] [place] [address] Dr. Hebert Noyola URINE MICROSCOPIC ONLYon BACTERIA NONE SEEN Normal NONE SEEN [facility] Comment on above: Performed By: #### EVARISTO BOWERS, PREGU #### [facility] [address] [place] [address] Dr. Hebert Noyola Bacteria identified Cx Nom (U) NOT INDICATED Normal [facility] Comment on above: Performed By: #### EVARISTO BOWERS, PREGU #### [facility] [address] [place] [address] Dr. Hebert Noyola CAST NONE SEEN Normal NONE SEEN [facility] Comment on above: Performed By: #### EVARISTO BOWERS, PREGU #### [facility] [address] [place] [address] Dr. Hebert Noyola Crystals LM Nom (Urine sed) NONE SEEN Normal NONE SEE N [facility] Comment on above: Performed By: #### EVARISTO BOWERS, PREGU #### [facility] [address] [place] [address] Dr. Hebert Noyola Epithelial cells LM Ql (Urine sed) FEW Abnormal N ONE SEEN /RARE [facility] Comment on above: Performed By: #### EVARISTO BOWERS, PREGU #### [facility] [address] [place] [address] [address] Hebert Noyola MUCOUS NONE SEEN Normal NONE SEEN [facility] Comment on above: Performed By: #### E EVARISTO TYLER, PREGU #### [facility] [address] [address] [address] Hebert Noyola RBC 0-2 Normal 0-2 [facility] Comment on above: Performed By: #### EVARISTO BOWERS, PREGU #### [facility] [address] [address] [address] Hebert Noyola WBC NONE SEEN Normal NONE SEEN [facility] Comment on above: Performed By: #### EVARISTO BOWERS, PREGU #### [facility] [address] [place] [address] Dr. Hebert Noyola WET PREPon 10-04-2022 CLUE CELLS NONE SEEN Normal NONE SEEN [facility] Comment on above: Performed By: #### W P #### [facility] [address] [place] [address] [address] Hebert Noyola FUNGAL ELEMENTS NONE SEEN Normal NONE SEEN [facility] Comment on above: Performed By: #### W P #### [facility] [address] [place] [address] [address] Hebert Noyola RBC -WET PREP FEW Abnormal NONE SEEN [facility] Comment on above: Performed By: #### W P #### [facility] [address] [place] [address] [address] Hebert Noyola TRICHOMONAS NONE SEEN Normal NONE SEEN [facility] Comment on above: Performed By: #### W P #### [facility] [address] [place] [address] Dr. Hebert Noyola WBC- WET PREP FEW Abnormal NONE SEEN [facility] Comment on above: Performed By: #### W P #### [facility] [address] [place] [address] [address] Hebert Noyola WET PREP BACTERIA FEW Abnormal NONE SEEN [facility] Comment on above: Performed By: #### W P #### [facility] [address] [place] [address] [address] Hebert Noyola Physician Orderon 02-14-2021 Physician Order [id number]:127 Normal [facility] [place] Coding Summary.on 09-02-2020 Coding Summary. CODING DATE: 021 FINAL [facility] STATUS: Home (Routine DC) PAYOR: [place] ADMIT DX: REASON FOR VISIT DX: Z11.51 [...] Bautista Date Saved: 09/01/2020 10:25 pm Normal [facility] PAP [id number] 08-30-2020 Cytology report Cyto stain Doc (Cvx/Vag) Note Invalid Interpretation Code [facility] Comment on above: Result Comment: TESTS RESULT FLAG UNITS REF RANGE LAB Clinician Provided Cytology Information Source.............Endocervix LMP / Prev Treat...[id number]=[id number] No. of containers..01 ThinPrep Vial DIAGNOSIS: 01 NEGATIVE FOR INTRAEPITHELIAL LESION OR MALIGNANCY. THIS SPECIMEN WAS RESCREENED PART OF OUR [employer]ED SPRING [employer]KER PROGRAM. 01 Satisfactory for evaluation. No endocervical component is identified. 01 Mainor Batres, Security Patrol Officer (ASCP) 01 Kristan Perez, Supervisory Security Patrol Officer (ASCP) 01 Note 01 The Pap smear [...] Low,>-Panic High,A-Abnormal,AA-Critical Abnormal Performed at: [address] [id number] Amy Shelton MD, Performed By: #### 1 [id number] #### [facility] [address] [place] [address] HPV 16+18+31+33+35+39+45+51+52+56+58+59+66+68 DNA Probe+sig amp Ql (Cvx) Negative Invalid Interpretation Code Negative [facility] [place] Comment on above: Result Comment: This nucleic acid amplification test detects fourteen high-risk HPV types (16,18,31,33,35,39,45,51,52,56,58,59,66,68) without differentiation. Performed at: WB [facility] [address] [id number] MD Cat Reyes Performed at: =G [facility] [id number] MD Cat Reyes Performed By: #### 1 [id number] #### [facility] [address] [place] [address] PAP [id number] 08-23-2020 Collection Technique BRUSH-SPATULA Normal [facility] Comment on above: Performed By: #### 1 [id number] #### [facility] [place] [facility] [address] [place] [address] Gynecological Body Site ENDOCERVIX Normal [facility] Comment on above: Performed By: #### 1 [id number] #### [facility] [place] [facility] [address] [place] [address] LMP or Menopause Date [id number] Invalid Interpretation Co de [facility] [place] Comment on above: Performed By: #### 1 [id number] #### [facility] [place] [facility] [address] [id number] Previous Cytology Negative Normal [facility] [place] Comment on above: Performed By: #### 1 [id number] #### [facility] [place] [facility] [address] [place] [address] Previous Treatment NONE Normal [facility] [place] Comment on above: Performed By: #### 1 [id number] #### [facility] [place] [facility] [address] [place] [address] Physician Orderon 08-23-2020 Physician Order [id number]:127 Normal [facility] [place] Coding Summary.on 08-10-2020 Coding Summary. 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 Nucleic acid amplification tests include RT-PCR and [...] detected) result in this assay. Performed at: [facility] [id number] PhD Tae Lynne Performed By: #### S ARS-CoV-2, TREASURE #### [facility] [place] [facility] [address] [place] [address] Physician Orderon 08-08-2020 Physician Order [id number]:127 Normal [facility] [place] Encounters Encounter Date Encounter Type Care Provider Facility Start: 05-28-2023 End: 05-28-2023 ambulatory DOMINICK RICE Not Available Start: 05-14-2023 End: 05-14-2023 ambulatory DOMINICK RICE Not Available Start: 04-30-2023 End: 04-30-2023 ambulatory VICKY SOTO Not Available Start: 10-10-2022 End: 10-10-[address] VICKY SOTO . Facility: Start: 10-04-2022 End: 10-04-[address] FERNANDO COON . Facility:[facility] Payers Date Payer Category Payer Unknown [id number] 2.16.84 [id number] 1985 Unknown [id number] 2.16.84 [id number] 1986 Unknown [id number] 1986 Unknown [id number] 1986 Unknown [id number] 1959 Private Health Insurance [id number] Summary Purpose Family History No Family History Records FoundNo Family History Records FoundNo Family History Records Found Advance Directives No Advanced Directives Records FoundNo Advanced Directives Records FoundNo Advanced Directives Records Found Additional Source Comments INFORMATION SOURCE (unrecogn ized section and content) DATE CREATED AUTHOR 02/15/2021 [facility] DATE CREATED AUTHOR AUTHOR'S ORGANIZ ATION 10/18/2022 [facility] DATE CREATED AUTHOR AUTHOR'S ORGANIZ ATION 05/30/2023 [facility] EPIC FOR RECORDS PERTAINING TO [...] BE BASED ON THE PRIMARY CLINICAL RECORDS. [employer] provides no warranty or guarantee of the accuracy or completeness of information in this document.
== END 2023-05-01 16:23 | disposition home or self-care (01) ==
LOC: FBCO 07:27 → FBC 15:52
PROVIDERS: Visit Provider Obstetrics & Gynecology
DX: O41.00X0 Oligohydramnios, unspecified trimester, not applicable or unspecified (principal); Z3A.00 Weeks of gestation of pregnancy not specified
CPT/HCPCS: 59025

== ENCOUNTER 2023-05-05 07:12 | Outpatient (OUT) | payer OTHER, SELFPAY ==
--- NOTE | 2023-05-05 | US_ITS ---
[address] [address] Patient Name: WATSON KWON MRN: [facility]:[id number] date: 1985 Sex: F Assigned Patient Location: [facility] [place] [facility] [place]Order Number: [id number] Exam Date: 05/05/2023 16:00 Report Date: 05/06/2023 15:41 At the request of: VICKY SOTO Procedure: US OB BPP w non-stress EXAMINATION: US OB BPP w non-stress HISTORY: OLIGOHYDRAMNIOS COMPARISON: Ultrasound OB biophysical 04/28/2023 TECHNIQUE: Ultrasound biophysical profile was performed in the radiology department. BREATHING MOVEMENTS: 2.0 GROSS BODY MOVEMENTS: 2.0 TONE: 2.0 QUALITATIVE AMNIOTIC FLUID VOLUME: 2.0 PRESENTATION: CEPHALIC HEART RATE: 135.7 bpm bpm. AMNIOTIC FLUID VOLUME: 15.3 cm GESTATIONAL AGE: 31 weeks 0 days CONCLUSION: Total biophysical profile score 8.0. Electronically authenticated by: MARK NI Date: 05/06/2023 15:41
[2023-05-05 16:28] VITALS: BP 143/90; PULSE 88
[2023-05-05 17:43] VITALS: BP 141/88; PULSE 85
== END 2023-05-05 17:50 | disposition home or self-care (01) ==
LOC: US 07:12 → FBC 15:53
PROVIDERS: Visit Provider Obstetrics & Gynecology
DX: O41.00X0 Oligohydramnios, unspecified trimester, not applicable or unspecified (principal); Z3A.00 Weeks of gestation of pregnancy not specified
CPT/HCPCS: 76818

== ENCOUNTER 2023-05-09 08:55 | Outpatient (OUT) | payer OTHER, SELFPAY ==
[2023-05-09 10:00] VITALS: BP 124/81; PULSE 88
== END 2023-05-09 10:40 | disposition home or self-care (01) ==
LOC: FBCO 08:55 → FBC 09:54
PROVIDERS: Visit Provider Obstetrics & Gynecology
DX: O41.03X0 Oligohydramnios, third trimester, not applicable or unspecified (principal)
CPT/HCPCS: 59025

== ENCOUNTER 2023-05-12 07:28 | Outpatient (OUT) | payer OTHER, SELFPAY ==
--- NOTE | 2023-05-12 | US_ITS ---
[address] [address] Patient Name: WATSON KWON MRN: [facility]:[id number] date: 1985 Sex: F Assigned Patient Location: US Current Patient Location: Accession/Order Number: [id number] Exam Date: 05/12/2023 16:00 Report Date: 05/13/2023 15:05 At the request of: VICKY SOTO Procedure: US OB BPP w non-stress EXAMINATION: US OB BPP w non-stress HISTORY: OLIGOHYDRAMNIOS COMPARISON: Ultrasound OB biophysical 05/05/2023 TECHNIQUE: Ultrasound biophysical profile was performed in the radiology department. BREATHING MOVEMENTS: 2.0 GROSS BODY MOVEMENTS: 2.0 TONE: 2.0 QUALITATIVE AMNIOTIC FLUID VOLUME: 2.0 PRESENTATION: Blank HEART RATE: 135.0 bpm bpm. AMNIOTIC FLUID VOLUME: 18.9 cm GESTATIONAL AGE: 32 weeks 0 days CONCLUSION: 1. Total biophysical profile score 8.0. 2. Normal amniotic fluid volume. Electronically authenticated by: MARK NI Date: 05/13/2023 15:05
[2023-05-12 16:18] VITALS: BP 138/82; PULSE 91
== END 2023-05-12 16:53 | disposition home or self-care (01) ==
LOC: US 07:29 → FBC 15:56
PROVIDERS: Visit Provider Obstetrics & Gynecology
DX: O41.03X1 Oligohydramnios, third trimester, fetus 1 (principal); Z3A.32 32 weeks gestation of pregnancy
CPT/HCPCS: 76818

== ENCOUNTER 2023-05-15 08:03 | Outpatient (OUT) | payer OTHER, SELFPAY ==
[2023-05-15 08:09] VITALS: BP 138/83; PULSE 95
--- OUTSIDE RECORDS SUMMARY | 2023-06-04 00:30 | XMS_ITS | CCD ---
Author Name Unknown Address [address] [place] [address] Organization [facility] Care Team Providers Care Blacksmith Apprentice Name Role Phone PAY ., DR KING Attending Unavailable PAY ., DR KING Consulting Unavailable PAY ., DR KING Admitting Unavailable BRITTANY ., DR PERRY Attending Unavailable BRITTANY ., DR PERRY Consulting Unavailable BRITTAYN ., DR PERRY Admitting Unavailable BRITTANY, VICKY [...] to 66on 10-17-2022 . . Normal [facility] Comment on above: Result Comment: Perf ormed at: WB Performed By: #### 4 [id number] #### [facility] [address] [place], [place] [address] Dr. Hebert Noyola Age Gdln ACOG Testing 30-65 Normal [facility] Comment on above: Performed By: #### 4 [id number] #### [facility] [address] [place] [address] Dr. Hebert Noyola DIAGNOSIS: Comment Normal [facility] Comment on above: Result Comment: NEGA TIVE FOR INTRAEPITHELIAL LESION OR MALIGNANCY. Performed at: WB Performed By: #### 4 [id number] #### [facility] [address] [place] [address] Dr. Hebert Noyola HPV Aptima Negative Normal Negative [facility] Comment on above: Result Comment: This nucleic acid amplification test detects fourteen high-risk HPV types (16,18,31,33,35,39,45,51,52,56,58,59,66,68) without differentiation. Performed at: =G Performed By: #### 4 [id number] #### [facility] [address] [place] [address] Dr. Hebert Noyola HPV Genotype Reflex Comment Normal [facility] Comment on above: Result Comment: Crit eria not met, HPV Genotype not performed. Performed at: WB Performed By: #### 4 [id number] #### [facility] [address] [place] [address] Dr. Hebert Noyola Methodology: Comment Normal [facility] Comment on above: Result Comment: This liquid based ThinPrep(R) pap test was screened with the use of an image guided system. Performed at: WB Performed By: #### 4 [id number] #### [facility] [address] [place] [address] Dr. Hebert Noyola Note: Comment Normal [facility] Comment on above: Result Comment: The Pap smear is a screening test designed to aid in the detection of premalignant and malignant conditions of the uterine cervix. It is not a diagnostic procedure and should not be used as the sole means of detecting cervical cancer. Both false-positive and false-negative reports do occur. . Performed at: WB Performed By: #### 4 [id number] #### [facility] [address] [place] [address] Dr. Hebert Noyola Performed by: Comment Normal [facility] Comment on above: Result Comment: Elizabeth Batres, Veneer Slicing Machine Operator (ASCP) Performed at: WB Performed By: #### 4 [id number] #### [facility] [address] [place] [address] Dr. Hebert Noyola Specimen adequacy: Comment Normal [facility] Comment on above: Result Comment: Sati sfactory for evaluation. Endocervical and/or squamous metaplastic cells (endocervical component) are present. Performed at: WB Performed By: #### 4 [id number] #### [facility] [address] [place] [address] Dr. Hebert Noyola CHLAMYDIA/GONOCOCCUS TREASURE ( AB/URINE/PAPon 10-08-2022 Chlamydia trachomatis, TREASURE Negative Normal Negative [facility] Comment on above: Performed By: #### C T/NGNA #### [facility] [address] [place] [address] Dr. Hebert Noyola Neisseria gonorrhoeae, TREASURE Negative Normal Negative [facility] Comment on above: Performed By: #### C T/NGNA #### [facility] [address] [place] [address] Dr. Hebert Noyola ER URINE PROFILEon 3 Bilirubin Ql (U) Negative Normal NEGATIVE [facility] Comment on above: Performed By: #### EAVRISTO BOWERS PREGU #### [facility] [address] [place] [address] Dr. Hebert Noyola Clarity (U) CLEAR Normal CLEAR [facility] Comment on above: Performed By: #### EVARISTO BOWERS PREGU #### [facility] [address] [place] [address] Dr. Hebert Noyola Color (U) LT. YELLOW Normal YELLOW [facility] Comment on above: Performed By: #### EVARISTO BOWERS PREGU #### [facility] [address] [place] [address] Dr. Hebert Noyola ERUAHD A micrscopic examina tion will be performed if indicated. Normal [facility] Comment on above: Performed By: #### EVARISTO BOWERS PREGU #### [facility] [address] [address] [address] Hebert Noyola Glucose Ql (U) Negative Normal NEGATIVE [facility] Comment on above: Performed By: #### EVARISTO BOWERS, PREGU #### [facility] [address] [address] [address] Hebert Noyola Hemoglobin Ql (U) TRACE-INTACT Abnormal NEGATIVE [facility] Comment on above: Performed By: #### EVARISTO BOWERS, PREGU #### [facility] [address] [address] [address] Hebert Noyola Ketones Ql (U) Negative Normal NEGATIVE [facility] Comment on above: Performed By: #### EVARISTO BOWERS PREGU #### [facility] [address] [place] [address] Dr. Hebert Noyola LEUKOCYTES Negative Normal NEGATIVE [facility] Comment on above: Performed By: #### EVARISTO BOWERS, PREGU #### [facility] [address] [address] [address] Hebert Noyola Nitrite Ql (U) Negative Normal NEGATIVE [facility] Comment on above: Performed By: #### EVARISTO BOWERS PREGU #### [facility] [address] [address] [address] Hebert Noyola pH (U) 7.0 [pH] Normal 5-9 [facility] Comment on above: Performed By: #### EVARISTO BOWERS PREGU #### [facility] [address] [address] [address] Hebert Noyola SPEC GRAVITY 1.015 Normal 1.005-<=1.025 [facility] Comment on above: Performed By: #### EVARISTO BOWERS PREGU #### [facility] [address] [address] [address] Hebert Noyola UA PROTEIN Negative Normal NEGATIVE/ TRACE [facility] Comment on above: Performed By: #### EVARISTO BOWERS PREGU #### [facility] [address] [address] [address] Hebert Noyola UR MICRO IND INDICATED Normal [facility] Comment on above: Performed By: #### EVARISTO BOWERS, PREGU #### [facility] [address] [address] [address] Hebert Noyola Urobilinogen Qn (U) 0.2 {Maddy'U}/dL Normal 0.2 - 1. 0 [facility] Comment on above: Performed By: #### EVARISTO BOWERS, PREGU #### [facility] [address] [address] [address] Hebert Noyola URon 10-04-2022 , QUAL Negative Normal NEGATIVE [facility] Comment on above: Performed By: #### EVARISTO BOWERS, PREGU #### [facility] [address] [place] [address] Dr. Hebert Noyola URINE MICROSCOPIC ONLYon BACTERIA NONE SEEN Normal NONE SEEN [facility] Comment on above: Performed By: #### EVARISTO BOWERS, PREGU #### [facility] [address] [place] [address] Dr. Hebert Noyola Bacteria identified Cx Nom (U) NOT INDICATED Normal [facility] Comment on above: Performed By: #### EVARISTO BOWERS, PREGU #### [facility] [address] [place] [address] Dr. Hebert Noyola CAST NONE SEEN Normal NONE SEEN [facility] Comment on above: Performed By: #### EVARISTO BOWERS, PREGU #### [facility] [address] [place] [address] Dr. Hebert Noyola Crystals LM Nom (Urine sed) NONE SEEN Normal NONE SEE N [facility] Comment on above: Performed By: #### EVARISTO BOWERS, PREGU #### [facility] [address] [place] [address] Dr. Hebert Noyola Epithelial cells LM Ql (Urine sed) FEW Abnormal N ONE SEEN /RARE [facility] Comment on above: Performed By: #### EVARISTO BOWERS, PREGU #### [facility] [address] [address] [address] Hebert Noyola MUCOUS NONE SEEN Normal NONE SEEN [facility] Comment on above: Performed By: #### E EVARISTO TYLER, PREGU #### [facility] [address] [address] [address] Hebert Noyola RBC 0-2 Normal 0-2 [facility] Comment on above: Performed By: #### EVARISTO BOWERS, PREGU #### [facility] [address] [address] [address] Hebert Noyola WBC NONE SEEN Normal NONE SEEN [facility] Comment on above: Performed By: #### EVARISTO BOWERS, PREGU #### [facility] [address] [place] [address] Dr. Hebert Noyola WET PREPon 10-04-2022 CLUE CELLS NONE SEEN Normal NONE SEEN [facility] Comment on above: Performed By: #### W P #### [facility] [address] [address] [address] Hebert Noyola FUNGAL ELEMENTS NONE SEEN Normal NONE SEEN [facility] Comment on above: Performed By: #### W P #### [facility] [address] [place] [address] [address] Hebert Noyola RBC -WET PREP FEW Abnormal NONE SEEN [facility] Comment on above: Performed By: #### W P #### [facility] [address] [address] [address] Hebert Noyola TRICHOMONAS NONE SEEN Normal NONE SEEN [facility] Comment on above: Performed By: #### W P #### [facility] [address] [place] [address] Dr. Hebert Noyola WBC- WET PREP FEW Abnormal NONE SEEN [facility] Comment on above: Performed By: #### W P #### [facility] [address] [address] [address] Hebert Noyola WET PREP BACTERIA FEW Abnormal NONE SEEN [facility] Comment on above: Performed By: #### W P #### [facility] [address] [address] [address] Hebert Noyola Physician Orderon 02-14-2021 Physician Order [id number]:127 Normal [facility] Coding Summary.on 09-02-2020 Coding Summary. CODING DATE: 021 FINAL [facility] STATUS: Home (Routine DC) PAYOR: [place] ADMIT DX: REASON FOR VISIT DX: Z11.51 [...] Saved: 09/01/2020 10:25 pm Normal [facility] PAP [id number] 08-30-2020 Cytology report Cyto stain Doc (Cvx/Vag) Note Invalid Interpretation Code [facility] Comment on above: Result Comment: TESTS RESULT FLAG UNITS REF RANGE LAB Clinician Provided Cytology Information Source.............Endocervix LMP / Prev Treat...IKB=[id number] No. of containers..01 ThinPrep Vial DIAGNOSIS: 01 NEGATIVE FOR INTRAEPITHELIAL LESION OR MALIGNANCY. THIS SPECIMEN WAS RESCREENED PART OF OUR [employer] PROGRAM. 01 Satisfactory for evaluation. No endocervical component is identified. 01 Mainor Batres, Veneer Slicing Machine Operator (ASCP) 01 Kristan Perez, Supervisory Veneer Slicing Machine Operator (ASCP) 01 Note 01 The Pap smear [...] Low,>-Panic High,A-Abnormal,AA-Critical Abnormal Performed at: [address] [address] Amy Shelton MD, Performed By: #### 1 [id number] #### [facility] [address] [place] [address] HPV 16+18+31+33+35+39+45+51+52+56+58+59+66+68 DNA Probe+sig amp Ql (Cvx) Negative Invalid Interpretation Code Negative [facility] Comment on above: Result Comment: This nucleic acid amplification test detects fourteen high-risk HPV types (16,18,31,33,35,39,45,51,52,56,58,59,66,68) without differentiation. Performed at: WB [place] [address] [id number] MD Cat Reyes Performed at: =G [facility] [id number] MD Cat Reyes Performed By: #### 1 [id number] #### [facility] [address] [place] [address] PAP [id number] 08-23-2020 Collection Technique BRUSH-SPATULA Normal [facility] Comment on above: Performed By: #### 1 [id number] #### [facility] [address] [place] [address] Gynecological Body Site ENDOCERVIX Normal [facility] Comment on above: Performed By: #### 1 [id number] #### [facility] [address] [place] [address] LMP or Menopause Date [id number] Invalid Interpretation Co de [facility] Comment on above: Performed By: #### 1 [id number] #### [facility] [address] [id number] Previous Cytology Negative Normal [facility] Comment on above: Performed By: #### 1 [id number] #### [facility] [address] [place] [address] Previous Treatment NONE Normal [facility] Comment on above: Performed By: #### 1 [id number] #### [facility] [address] [place] [address] Physician Orderon 08-23-2020 Physician Order [id number]:127 Normal [facility] Coding Summary.on 08-10-2020 Coding Summary. 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 Nucleic acid amplification tests include RT-PCR and [...] detected) result in this assay. Performed at: [facility] [id number] PhD Tae Lynne Performed By: #### S ARS-CoV-2, TREASURE #### [facility] [address] [place] [address] Physician Orderon 08-08-2020 Physician Order [id number]:127 Normal [facility] Encounters Encounter Date Encounter Type Care Provider Facility Start: 05-28-2023 End: 05-28-2023 ambulatory DOMINICK RICE Not Available Start: 05-14-2023 End: 05-14-2023 ambulatory DOMINICK RICE Not Available Start: 04-30-2023 End: 04-30-2023 ambulatory VICKY SOTO Not Available Start: 10-10-2022 End: 10-10-[address] VICKY SOTO . Facility: Start: 10-04-2022 End: 10-04-[address] FERNANDO COON . Facility:[facility] Payers Date Payer Category Payer Unknown [id number] [id number] [id number] 1985 Unknown [id number] [id number] [id number] 1986 Unknown [id number] 1986 Unknown [id number] 1986 Unknown [id number] 1959 Private Health Insurance [id number] Summary Purpose Family History No Family History Records FoundNo Family History Records FoundNo Family History Records Found Advance Directives No Advanced Directives Records FoundNo Advanced Directives Records FoundNo Advanced Directives Records Found Additional Source Comments INFORMATION SOURCE (unrecogn ized section and content) DATE CREATED AUTHOR 02/15/2021 [facility] DATE CREATED AUTHOR AUTHOR'S ORGANIZ ATION 10/18/2022 [facility] DATE CREATED AUTHOR AUTHOR'S ORGANIZ ATION 05/30/2023 [facility] EPIC FOR RECORDS PERTAINING TO [...] BE BASED ON THE PRIMARY CLINICAL RECORDS. [employer] provides no warranty or guarantee of the accuracy or completeness of information in this document.
== END 2023-05-15 09:25 | disposition home or self-care (01) ==
LOC: FBCO 08:04 → FBC 08:06
PROVIDERS: Visit Provider Obstetrics & Gynecology
DX: O41.03X0 Oligohydramnios, third trimester, not applicable or unspecified (principal)
CPT/HCPCS: 59025

== ENCOUNTER 2023-05-20 07:07 | Outpatient (OUT) | payer OTHER, SELFPAY ==
--- NOTE | 2023-05-20 16:04 | US_ITS ---
[address] [address] Patient Name: WATSON KWON MRN: [facility]:[id number] date: 1985 Sex: F Assigned Patient Location: [facility] Current Patient Location: Accession/Order Number: [id number] Exam Date: 05/20/2023 16:06 Report Date: 05/21/2023 07:11 At the request of: VICKY SOTO Procedure: US OB BPP w non-stress EXAMINATION: US OB BPP w non-stress HISTORY: OLIGOHYDRAMINOS COMPARISON: No relevant comparison available. TECHNIQUE: Ultrasound biophysical profile was performed in the radiology department. FINDINGS: BREATHING MOVEMENTS: 2.0 GROSS BODY MOVEMENTS: 2.0 TONE: 2.0 QUALITATIVE AMNIOTIC FLUID VOLUME: 2.0 PRESENTATION: CEPHALIC HEART RATE: 142.9 bpm H.B./min AMNIOTIC FLUID VOLUME: 12.1 cm cm GESTATIONAL AGE: 33 weeks 1 days CONCLUSION: Total biophysical profile score: 8.0 Electronically authenticated by: LOWELL BARRAZA Date: 05/21/2023 07:11
[2023-05-20 16:31] VITALS: BP 164/88; PULSE 95
[2023-05-20 16:32] VITALS: BP 149/86; PULSE 94
[2023-05-20 16:48] VITALS: BP 155/83; PULSE 83
== END 2023-05-20 17:19 | disposition home or self-care (01) ==
LOC: US 07:08 → FBC 16:19
PROVIDERS: Visit Provider Obstetrics & Gynecology
DX: O41.03X0 Oligohydramnios, third trimester, not applicable or unspecified (principal); Z3A.33 33 weeks gestation of pregnancy
CPT/HCPCS: 76818

== ENCOUNTER 2023-05-23 07:17 | Outpatient (OUT) | payer OTHER, SELFPAY ==
[2023-05-23 16:08] VITALS: BP 145/93; PULSE 93
[2023-05-23 16:12] VITALS: TEMP 36.4
[2023-05-23 16:24] VITALS: BP 144/95; PULSE 90
--- OUTSIDE RECORDS SUMMARY | 2023-06-04 03:40 | XMS_ITS | CCD ---
Author Name Unknown Address [address] [place] [address] Organization [facility] Care Team Providers Care Police Officer Crime Prevention Name Role Phone PAY ., DR KING [...] to 66on 10-17-2022 . . Normal [facility] Comment on above: Result Comment: Perf ormed at: WB Performed By: #### [id number] #### [facility] [address] [place], [place] [address] Dr. Hebert Noyola Age Gdln ACOG Testing 30-65 Normal [facility] Comment on above: Performed By: #### 4 [id number] #### [facility] [address] [place] [address] Dr. Hebert Noyola DIAGNOSIS: Comment Normal [facility] Comment on above: Result Comment: NEGA TIVE FOR INTRAEPITHELIAL LESION OR MALIGNANCY. Performed at: WB Performed By: #### 4 [id number] #### [facility] [address] [place] [address] Dr. Hebert Noyola HPV Aptima Negative Normal Negative The [facility] [place] Comment on above: Result Comment: This nucleic acid amplification test detects fourteen high-risk HPV types (16,18,31,33,35,39,45,51,52,56,58,59,66,68) without differentiation. Performed at: =G Performed By: #### 4 [id number] #### [facility] [address] [place] [address] Dr. Hebert Noyola HPV Genotype Reflex Comment Normal [facility] Comment on above: Result Comment: Crit eria not met, HPV Genotype not performed. Performed at: WB Performed By: #### 4 [id number] #### [facility] [address] [place] [address] Dr. Hebert Noyola Methodology: Comment Normal [facility] Comment on above: Result Comment: This liquid based ThinPrep(R) pap test was screened with the use of an image guided system. Performed at: WB Performed By: #### 4 [id number] #### [facility] [address] [place] [address] Dr. Hebert Noyola Note: Comment Normal [facility] [place] Comment on above: Result Comment: The Pap smear is a screening test designed to aid in the detection of premalignant and malignant conditions of the uterine cervix. It is not a diagnostic procedure and should not be used as the sole means of detecting cervical cancer. Both false-positive and false-negative reports do occur. . Performed at: WB Performed By: #### 4 [id number] #### [facility] [address] [place] [address] Dr. Hebert Noyola Performed by: Comment Normal [facility] Comment on above: Result Comment: Elizabeth Batres, Loader Operator Supervisor (ASCP) Performed at: WB Performed By: #### 4 [id number] #### [facility] [address] [place] [address] Dr. Hebert Noyola Specimen adequacy: Comment Normal [facility] Comment on above: Result Comment: Sati sfactory for evaluation. Endocervical and/or squamous metaplastic cells (endocervical component) are present. Performed at: WB Performed By: #### 4 [id number] #### [facility] [address] [place] [address] Dr. Hebert Noyola CHLAMYDIA/GONOCOCCUS TREASURE ( AB/URINE/PAPon 10-08-2022 Chlamydia trachomatis, TREASURE Negative Normal Negative [facility] Comment on above: Performed By: #### C T/NGNA #### [facility] [address] [place] [address] Dr. Hebert Noyola Neisseria gonorrhoeae, TREASURE Negative Normal Negative [facility] Comment on above: Performed By: #### C T/NGNA #### [facility] [address] [place] [address] Dr. Hebert Noyola ER URINE PROFILEon 3 Bilirubin Ql (U) Negative Normal NEGATIVE [facility] Comment on above: Performed By: #### EVARISTO BOWERS PREGU #### [facility] [address] [place] [address] Dr. Hebert Noyola Clarity (U) CLEAR Normal CLEAR [facility] Comment on above: Performed By: #### EVARISTO BOWERS PREGU #### [facility] [address] [place] [address] Dr. Hebert Noyola Color (U) LT. YELLOW Normal YELLOW [facility] Comment on above: Performed By: #### EVARISTO BOWERS PREGU #### [facility] [address] [place] [address] Dr. Hebert Noyola ERUAHD A micrscopic examina tion will be performed if indicated. Normal The [facility] Comment on above: Performed By: #### EVARISTO BOWERS PREGU #### [facility] [address] [address] [address] Hebert Noyola Glucose Ql (U) Negative Normal NEGATIVE [facility] Comment on above: Performed By: #### EVARISTO BOWERS, PREGU #### [facility] [address] [place] [address] [address] Hebert Noyola Hemoglobin Ql (U) TRACE-INTACT Abnormal NEGATIVE [facility] Comment on above: Performed By: #### EVARISTO BOWERS, PREGU #### [facility] [address] [place] [address] [address] Hebert Noyola Ketones Ql (U) Negative Normal NEGATIVE [facility] Comment on above: Performed By: #### EVARISTO BOWERS PREGU #### [facility] [address] [place] [address] Dr. Hebert Noyola LEUKOCYTES Negative Normal NEGATIVE [facility] [place] Comment on above: Performed By: #### EVARISTO BOWERS, PREGU #### [facility] [address] [place] [address] [address] Hebert Noyola Nitrite Ql (U) Negative Normal NEGATIVE [facility] Comment on above: Performed By: #### EVARISTO BOWERS PREGU #### [facility] [address] [place] [address] [address] Hebert Noyola pH (U) 7.0 [pH] Normal 5-9 The [facility] [place] Comment on above: Performed By: #### EVARISTO BOWERS PREGU #### [facility] [address] [place] [address] [address] Hebert Noyola SPEC GRAVITY 1.015 Normal 1.005-<=1.025 The [facility] Comment on above: Performed By: #### EVARISTO BOWERS PREGU #### [facility] [address] [place] [address] [address] Hebert Noyola UA PROTEIN Negative Normal NEGATIVE/ TRACE [facility] Comment on above: Performed By: #### EVARISTO BOWERS PREGU #### [facility] [address] [place] [address] [address] Hebert Noyola UR MICRO IND INDICATED Normal [facility] Comment on above: Performed By: #### EVARISTO BOWERS, PREGU #### [facility] [address] [place] [address] [address] Hebert Noyola Urobilinogen Qn (U) 0.2 {Maddy'U}/dL Normal 0.2 - 1. 0 [facility] Comment on above: Performed By: #### EVARISTO BOWERS, PREGU #### [facility] [address] [place] [address] [address] Hebert Noyola URon 10-04-2022 , QUAL Negative Normal NEGATIVE [facility] Comment on above: Performed By: #### EVARISTO BOWERS, PREGU #### [facility] [address] [place] [address] Dr. Hebert Noyola URINE MICROSCOPIC ONLYon BACTERIA NONE SEEN Normal NONE SEEN [facility] Comment on above: Performed By: #### EVARISTO BOWERS, PREGU #### [facility] [address] [place] [address] Dr. Hebert Noyola Bacteria identified Cx Nom (U) NOT INDICATED Normal [facility] Comment on above: Performed By: #### EVARISTO BOWERS, PREGU #### [facility] [address] [place] [address] Dr. Hbeert Noyola CAST NONE SEEN Normal NONE SEEN [facility] Comment on above: Performed By: #### EVARISTO BOWERS, PREGU #### [facility] [address] [place] [address] Dr. Hebert Noyola Crystals LM Nom (Urine sed) NONE SEEN Normal NONE SEE N [facility] Comment on above: Performed By: #### EVARISTO BOWERS, PREGU #### [facility] [address] [place] [address] Dr. Hebert Noyola Epithelial cells LM Ql (Urine sed) FEW Abnormal N ONE SEEN /RARE [facility] Comment on above: Performed By: #### EVARISTO BOWERS, PREGU #### [facility] [address] [place] [address] [address] Hebert Noyola MUCOUS NONE SEEN Normal NONE SEEN [facility] Comment on above: Performed By: #### E EVARISTO TYLER, PREGU #### [facility] [address] [place] [address] [address] Hebert Noyola RBC 0-2 Normal 0-2 [facility] Comment on above: Performed By: #### EVARISTO BOWERS, PREGU #### [facility] [address] [place] [address] [address] Hebert Noyola WBC NONE SEEN Normal NONE SEEN The [facility] [place] Comment on above: Performed By: #### EVARISTO BOWERS, PREGU #### [facility] [address] [place] [address] Dr. Hebert Noyola WET PREPon 10-04-2022 CLUE CELLS NONE SEEN Normal NONE SEEN [facility] Comment on above: Performed By: #### W P #### [facility] [address] [place] [address] [address] Hebert Noyola FUNGAL ELEMENTS NONE SEEN Normal NONE SEEN [facility] Comment on above: Performed By: #### W P #### [facility] [address] [place] [address] [address] Hebert Noyola RBC -WET PREP FEW Abnormal NONE SEEN [facility] Comment on above: Performed By: #### W P #### [facility] [address] [place] [address] [address] Hebert Noyola TRICHOMONAS NONE SEEN Normal NONE SEEN [facility] Comment on above: Performed By: #### W P #### [facility] [address] [place] [address] Dr. Hebert Noyola WBC- WET PREP FEW Abnormal NONE SEEN [facility] Comment on above: Performed By: #### W P #### [facility] [address] [address] [address] Hebert Noyola WET PREP BACTERIA FEW Abnormal NONE SEEN The [facility] Comment on above: Performed By: #### W P #### [facility] [address] [place] [address] [address] Hebert Noyola Physician Orderon 02-14-2021 Physician Order [id number]:127 Normal [facility] Coding Summary.on 09-02-2020 Coding Summary. CODING DATE: 021 FINAL [facility] STATUS: Home (Routine DC) PAYOR: [place] ADMIT DX: REASON FOR VISIT DX: Z11.51 [...] Saved: 09/01/2020 10:25 pm Normal [facility] PAP [id number] 08-30-2020 Cytology report Cyto stain Doc (Cvx/Vag) Note Invalid Interpretation Code [facility] Comment on above: Result Comment: TESTS RESULT FLAG UNITS REF RANGE LAB Clinician Provided Cytology Information Source.............Endocervix LMP / Prev Treat...SVV=[id number] No. of containers..01 ThinPrep Vial DIAGNOSIS: 01 NEGATIVE FOR INTRAEPITHELIAL LESION OR MALIGNANCY. THIS SPECIMEN WAS RESCREENED PART OF OUR STITCH[employer] SPECIAL MACHINE PROGRAM. 01 Satisfactory for evaluation. No endocervical component is identified. 01 Mainor Batres, Loader Operator Supervisor (ASCP) 01 Kristan Perez, Supervisory Loader Operator Supervisor (ASCP) 01 Note 01 The Pap smear [...] Low,>-Panic High,A-Abnormal,AA-Critical Abnormal Performed at: [address] [id number] Amy Shelton MD, Performed By: #### 1 [id number] #### Mnauel [facility] [address] [place] [address] HPV 16+18+31+33+35+39+45+51+52+56+58+59+66+68 DNA Probe+sig amp Ql (Cvx) Negative Invalid Interpretation Code Negative [facility] Comment on above: Result Comment: This nucleic acid amplification test detects fourteen high-risk HPV types (16,18,31,33,35,39,45,51,52,56,58,59,66,68) without differentiation. Performed at: WB Yodio Math[address] [id number] MD Cat Reyes Performed at: =G [address] [id number] MD Cat Reyes Performed By: #### 1 [id number] #### Manuel [facility] [address] [place] [address] PAP [id number] 08-23-2020 Collection Technique BRUSH-SPATULA Normal F [facility] Comment on above: Performed By: #### 1 [id number] #### [facility] [address] [place] [address] Gynecological Body Site ENDOCERVIX Normal F [facility] Comment on above: Performed By: #### 1 [id number] #### [facility] [address] [place] [address] LMP or Menopause Date [id number] Invalid Interpretation Co de [facility] Comment on above: Performed By: #### 1 [id number] #### [facility] [address] [place] [id number] Previous Cytology Negative Normal [facility] Comment on above: Performed By: #### 1 [id number] #### [facility] [address] [place] [address] Previous Treatment NONE Normal [facility] Comment on above: Performed By: #### 1 [id number] #### [facility] [address] [place] [address] Physician Orderon 08-23-2020 Physician Order [id number]:127 Normal [facility] Coding Summary.on 08-10-2020 Coding Summary. CODING DATE: 021 FINAL [facility] STATUS: Home (Routine DC) PAYOR: [...] Saved: 08/10/2020 05:40 pm Normal [facility] SARS-CoV-2, NAAon 08-09-2020 SARS-CoV-2 (COVID-19) RNA TREASURE+probe Ql (Resp) Detected Abnormal Not Detected [facility] Comment on above: Result Comment: This nucleic acid amplification test was developed and its performance characteristics determined by [employer]. Nucleic acid amplification tests include RT-PCR and [...] detected) result in this assay. Performed at: [facility] [id number] PhD Tae Lynne Performed By: #### S ARS-CoV-2, TREASURE #### [facility] [address] [place] [address] Physician Orderon 08-08-2020 Physician Order [id number]:127 Normal [facility] Encounters Encounter Date Encounter Type Care Provider Facility Start: 05-28-2023 End: 05-28-2023 ambulatory DOMINICK RICE Not Available Start: 05-14-2023 End: 05-14-2023 ambulatory DOMINICK RICE Not Available Start: 04-30-2023 End: 04-30-2023 ambulatory VICKY SOTO Not Available Start: 10-10-2022 End: 10-10-[address] VICKY SOTO . Facility: Start: 10-04-2022 End: 10-04-[address] FERNANDO COON . Facility:[facility] Payers Date Payer Category Payer Unknown [id number] [id number] [id number] 1985 Unknown [id number] [id number] [id number] 1986 Unknown [id number] 1986 Unknown [id number] 1986 Unknown [id number] 1959 Private Health Insurance [id number] Summary Purpose Family History No Family History Records FoundNo Family History Records FoundNo Family History Records Found Advance Directives No Advanced Directives Records FoundNo Advanced Directives Records FoundNo Advanced Directives Records Found Additional Source Comments INFORMATION SOURCE (unrecogn ized section and content) DATE CREATED AUTHOR 02/15/2021 [facility] DATE CREATED AUTHOR AUTHOR'S ORGANIZ ATION 10/18/2022 [facility] DATE CREATED AUTHOR AUTHOR'S ORGANIZ ATION 05/30/2023 [facility] EPIC FOR RECORDS PERTAINING TO [...] BE BASED ON THE PRIMARY CLINICAL RECORDS. [employer] provides no warranty or guarantee of the accuracy or completeness of information in this document.
== END 2023-05-23 16:57 | disposition home or self-care (01) ==
LOC: FBCO 07:17 → FBC 15:55
PROVIDERS: Visit Provider Obstetrics & Gynecology
DX: O41.00X0 Oligohydramnios, unspecified trimester, not applicable or unspecified (principal); Z3A.00 Weeks of gestation of pregnancy not specified
CPT/HCPCS: 59025

== ENCOUNTER 2023-05-26 07:07 | Outpatient (OUT) | payer OTHER, SELFPAY ==
[2023-05-26 16:07] VITALS: BP 156/88; PULSE 91
--- NOTE | 2023-05-26 16:13 | US_ITS ---
[address] [address] Patient Name: WATSON KWON MRN: [facility]:[id number] date: 1985 Sex: F Assigned Patient Location: [facility] Current Patient Location: Accession/Order Number: [id number] Exam Date: 05/26/2023 16:15 Report Date: 05/27/2023 10:04 At the request of: VICKY SOTO Procedure: US OB BPP w non-stress EXAMINATION: US OB BPP w non-stress HISTORY: OLIGOHYDRAMNIOS COMPARISON: No relevant comparison available. TECHNIQUE: Ultrasound biophysical profile was performed in the radiology department. non-reactive stress testing was performed by nursing staff in the birthing center. FINDINGS: BREATHING MOVEMENTS: 2.0 GROSS BODY MOVEMENTS: 2.0 TONE: 2.0 QUALITATIVE AMNIOTIC FLUID VOLUME: 2.0 PRESENTATION: CEPHALIC HEART RATE: 126.8 bpm H.B./min AMNIOTIC FLUID VOLUME: 13.0 cm cm GESTATIONAL AGE: 34 weeks 0 days CONCLUSION: Total biophysical profile score: 8.0 Electronically authenticated by: LOWELL BARRAZA Date: 05/27/2023 10:04
[2023-05-26 16:19] VITALS: BP 136/82; PULSE 90
[2023-05-26 16:29] VITALS: BP 160/88; PULSE 88
[2023-05-26 16:39] VITALS: BP 156/85; PULSE 95
[2023-05-26 16:49] VITALS: BP 149/83; PULSE 75
[2023-05-26 16:59] VITALS: BP 134/66; PULSE 76
== END 2023-05-26 17:20 | disposition home or self-care (01) ==
LOC: US 07:07 → FBC 16:03
PROVIDERS: Visit Provider Obstetrics & Gynecology
DX: O41.03X1 Oligohydramnios, third trimester, fetus 1 (principal); Z3A.34 34 weeks gestation of pregnancy
CPT/HCPCS: 76818

== ENCOUNTER 2023-05-29 07:29 | Outpatient (OUT) | payer OTHER, SELFPAY ==
[2023-05-29 16:08] VITALS: BP 144/93; PULSE 102
[2023-05-29 16:25] VITALS: BP 142/79; PULSE 85
[2023-05-29 16:39] VITALS: BP 120/80; PULSE 99
== END 2023-05-29 17:05 | disposition home or self-care (01) ==
LOC: FBCO 07:29 → FBC 16:02
PROVIDERS: Visit Provider Obstetrics & Gynecology
DX: O41.03X0 Oligohydramnios, third trimester, not applicable or unspecified (principal)
CPT/HCPCS: 59025

== ENCOUNTER 2023-06-02 07:45 | Outpatient (OUT) | payer OTHER, SELFPAY ==
[2023-06-02 16:46] VITALS: BP 131/83; PULSE 91; RESP 18
--- NOTE | 2023-06-02 16:59 | US_ITS ---
[address] [address] Patient Name: WATSON KWON MRN: [facility]:[id number] date: 1985 Sex: F Assigned Patient Location: [facility] Current Patient Location: Accession/Order Number: [id number] Exam Date: 06/02/2023 17:03 Report Date: 06/03/2023 08:07 At the request of: VICKY SOTO Procedure: US OB BPP w non-stress EXAMINATION: US OB BPP w non-stress HISTORY: OLIGOHYDRAMINOS COMPARISON: No relevant comparison available. TECHNIQUE: Ultrasound biophysical profile was performed in the radiology department. non-reactive stress testing was performed by nursing staff in the birthing center. FINDINGS: BREATHING MOVEMENTS: 2.0 GROSS BODY MOVEMENTS: 2.0 TONE: 2.0 QUALITATIVE AMNIOTIC FLUID VOLUME: 2.0 PRESENTATION: CEPHALIC HEART RATE: 134.3 bpm H.B./min AMNIOTIC FLUID VOLUME: 10.5 cm cm GESTATIONAL AGE: 35 weeks 0 days CONCLUSION: Total biophysical profile score: 8.0 Electronically authenticated by: LOWELL BARRAZA Date: 06/03/2023 08:07
== END 2023-06-02 17:30 | disposition home or self-care (01) ==
LOC: US 07:47 → FBC 15:49
PROVIDERS: Visit Provider Obstetrics & Gynecology
DX: O41.03X0 Oligohydramnios, third trimester, not applicable or unspecified (principal); Z3A.35 35 weeks gestation of pregnancy
CPT/HCPCS: 76818

== ENCOUNTER 2023-06-05 07:32 | Outpatient (OUT) | payer OTHER, SELFPAY ==
--- OUTSIDE RECORDS SUMMARY | 2023-06-05 10:24 | XMS_ITS | CCD ---
Author Name Unknown Address [address] [place] [address] Organization [facility] Care Team Providers Care Registered Nurse Name Role Phone PAY ., DR KING [...] Results Test Name Value Interpretation Reference Range Facility PAP ACOG PANEL 2: 30 to 65on 10-17-2022 . . Normal [facility] Comment on above: Result Comment: Perf ormed at: WB Performed By: #### 4 [id number] #### [facility] [address] [address] [address] Hebert Noyola Age Gdln ACOG Testing 30-65 Normal [facility] Comment on above: Performed By: #### 4 [id number] #### [facility] [address] [place] [address] Dr. Hebert Noyola DIAGNOSIS: Comment Normal [facility] Comment on above: Result Comment: NEGA TIVE FOR INTRAEPITHELIAL LESION OR MALIGNANCY. Performed at: WB Performed By: #### 4 [id number] #### [facility] [address] [place] [address] Dr. Hebert Noyola HPV Aptima Negative Normal Negative [facility] Comment on above: Result Comment: This nucleic acid amplification test detects fourteen high-risk HPV types (16,18,31,33,35,39,45,51,52,56,58,59,66,68) without differentiation. Performed at: =G Performed By: #### 4 [id number] #### [facility] [address] [place] [address] Dr. Hebert Noyola HPV Genotype Reflex Comment Normal [facility] Comment on above: Result Comment: Crit eria not met, HPV Genotype not performed. Performed at: WB Performed By: #### 4 [id number] #### [facility] [address] [place] [address] Dr. Hebert Noyola Methodology: Comment Normal [facility] Comment on above: Result Comment: This liquid based ThinPrep(R) pap test was screened with the use of an image guided system. Performed at: WB Performed By: #### 4 [id number] #### [facility] [address] [place] [address] Dr. Hebert Noyola Note: Comment Normal [facility] Comment on above: Result Comment: The Pap smear is a screening test designed to aid in the detection of premalignant and malignant conditions of the uterine cervix. It is not a diagnostic procedure and should not be used as the sole means of detecting cervical cancer. Both false-positive and false-negative reports do occur. . Performed at: WB Performed By: #### 4 [id number] #### [facility] [address] [place] [address] Dr. Hebert Noyola Performed by: Comment Normal [facility] Comment on above: Result Comment: Elizabeth Batres, Project Specialist (ASCP) Performed at: WB Performed By: #### 4 [id number] #### [facility] [address] [place] [address] Dr. Hebert Noyola Specimen adequacy: Comment Normal [facility] Comment on above: Result Comment: Sati sfactory for evaluation. Endocervical and/or squamous metaplastic cells (endocervical component) are present. Performed at: WB Performed By: #### 4 [id number] #### [facility] [address] [place] [address] Dr. Hebert Noyola CHLAMYDIA/GONOCOCCUS TREASURE ( AB/URINE/PAPon 10-08-2022 Chlamydia trachomatis, TREASURE Negative Normal Negative [facility] Comment on above: Performed By: #### C T/NGNA #### [facility] [address] [place] [address] Dr. Hebert Noyola Neisseria gonorrhoeae, TREASURE Negative Normal Negative [facility] Comment on above: Performed By: #### C T/NGNA #### [facility] [address] [place] [address] Dr. Hebert Noyola ER URINE PROFILEon 3 Bilirubin Ql (U) Negative Normal NEGATIVE [facility] Comment on above: Performed By: #### Thom TYSONREVARISTO, PREGU #### [facility] [address] [place] [address] Dr. Hebert Noyola Clarity (U) CLEAR Normal CLEAR [facility] Comment on above: Performed By: #### E RUREVARISTO, PREGU #### [facility] [address] [place] [address] Dr. Hebert Noyola Color (U) LT. YELLOW Normal YELLOW [facility] Comment on above: Performed By: #### E RURANGELICDELILAH, PREGU #### [facility] [address] [place] [address] Dr. Hebert Noyola ERUAHD A micrscopic examination will be performed if indicated. Normal [facility] Comment on above: Performed By: #### E RUR UMICRO, PREGU #### [facility] [address] [place] [address] Dr. Hebert Noyola Glucose Ql (U) Negative Normal NEGATIVE [facility] Comment on above: Performed By: #### E RUR, UMICRO, PREGU #### [facility] [address] [address] [address] Hebert Noyola Hemoglobin Ql (U) TRACE-INTACT Abnormal NEGATIVE [facility] Comment on above: Performed By: #### E RUR, UMICRO, PREGU #### [facility] [address] [address] [address] Hebert Noyola Ketones Ql (U) Negative Normal NEGATIVE [facility] Comment on above: Performed By: #### E RUR, UMICRO, PREGU #### [facility] [address] [place] [address] Dr. Hebert Noyola LEUKOCYTES Negative Normal NEGATIVE [facility] Comment on above: Performed By: #### E RUR, UMICRO, PREGU #### [facility] [address] [address] [address] Hebert Noyola Nitrite Ql (U) Negative Normal NEGATIVE [facility] Comment on above: Performed By: #### E RUR, UMICRO, PREGU #### [facility] [address] [address] [address] Hebert Noyola pH (U) 7.0 [pH] Normal 5-9 [facility] Comment on above: Performed By: #### E RUR, UMICRO, PREGU #### [facility] [address] [address] [address] Hebert Noyola SPEC GRAVITY 1.015 Normal 1.005-<=1.025 [facility] Comment on above: Performed By: #### E RUR, UMICRO, PREGU #### [facility] [address] [address] [address] Hebert Noyola UA PROTEIN Negative Normal NEGATIVE/ TRACE [facility] Comment on above: Performed By: #### E RUR, UMICRO, PREGU #### [facility] [address] [address] [address] Hebert Noyola UR MICRO IND INDICATED Normal [facility] Comment on above: Performed By: #### EVARISTO BOWERS, PREGU #### [facility] [address] [address] [address] Hebert Noyola Urobilinogen Qn (U) 0.2 {Maddy'U}/dL Normal 0.2 - 1.0 [facility] Comment on above: Performed By: #### E EVARISTO TYLER, PREGU #### [facility] [address] [address] [address] Hebert Noyola URon 10-04-2022 , QUAL Negative Normal NEGATIVE [facility] Comment on above: Performed By: #### EVARISTO BOWERS, PREGU #### [facility] [address] [place] [address] Dr. Hebert Noyola URINE MICROSCOPIC ONLYon BACTERIA NONE SEEN Normal NONE SEEN [facility] Comment on above: Performed By: #### EVARISTO BOWERS, PREGU #### [facility] [address] [place] [address] Dr. Hebert Noyola Bacteria identified Cx Nom (U) NOT INDICATED Normal [facility] Comment on above: Performed By: #### EVARISTO BOWERS, PREGU #### [facility] [address] [place] [address] Dr. Hebert Noyola CAST NONE SEEN Normal NONE SEEN [facility] Comment on above: Performed By: #### EVARISTO BOWERS, PREGU #### [facility] [address] [address] [address] Hebert Noyola Crystals LM Nom (Urine sed) NONE SEEN Normal NONE SEEN [facility] Comment on above: Performed By: #### EVARISTO BOWERS, PREGU #### [facility] [address] [place] [address] Dr. Hebert Noyola Epithelial cells LM Ql (Urine sed) FEW Abnormal NONE SEEN /RARE [facility] Comment on above: Performed By: #### ANGEL BOWERSICDELILAH, PREGU #### [facility] [address] [place] [address] Dr. Hebert Noyola MUCOUS NONE SEEN Normal NONE SEEN [facility] Comment on above: Performed By: #### EVARISTO BOWERS, PREGU #### [facility] [address] [place] [address] Dr. Hebert Noyola RBC 0-2 Normal 0-2 [facility] Comment on above: Performed By: #### EVARISTO BOWERS, PREGU #### [facility] [address] [place] [address] Dr. Hebert Noyola WBC NONE SEEN Normal NONE SEEN [facility] Comment on above: Performed By: #### EVARISTO BOWERS, PREGU #### [facility] [address] [place] [address] Dr. Hebert Noyola WET PREPon 10-04-2022 CLUE CELLS NONE SEEN Normal NONE SEEN [facility] Comment on above: Performed By: #### W P #### [facility] [address] [place] [address] Dr. Hebert Noyola FUNGAL ELEMENTS NONE SEEN Normal NONE SEEN [facility] Comment on above: Performed By: #### W P #### [facility] [address] [place] [address] Dr. Hebert Noyola RBC -WET PREP FEW Abnormal NONE SEEN [facility] Comment on above: Performed By: #### W P #### [facility] [address] [place] [address] Dr. Hebert Noyola TRICHOMONAS NONE SEEN Normal NONE SEEN [facility] Comment on above: Performed By: #### W P #### [facility] [address] [place] [address] Dr. Hebert Noyola WBC- WET PREP FEW Abnormal NONE SEEN [facility] Comment on above: Performed By: #### W P #### [facility] [address] [place] [address] Dr. Hebert Noyola WET PREP BACTERIA FEW Abnormal NONE SEEN [facility] Comment on above: Performed By: #### W P #### [facility] [address] [place] [address] Dr. Hebert Noyola Physician Orderon 02-14-2021 Physician Order [id number] .00CD:127 Normal [facility] Coding Summary.on 09-02-2020 Coding Summary. CODING DATE: 09/01/2020 FINAL [facility] STATUS: Home (Routine DC) PAYOR: Ashley ADMIT DX: REASON FOR VISIT DX: Z11.51 [...] Bautista Date Saved: 09/01/2020 10:25 pm Normal [facility] PAP [id number] 08-30-2020 Cytology report Cyto stain Doc (Cvx/Vag) Note Invalid Interpretation Code [facility] Comment on above: Result Comment: TEST S RESULT FLAG UNITS REF RANGE LAB Clinician Provided Cytology Information Source.............Endocervix LMP / Prev Treat...OLP=[id number] No. of containers..01 ThinPrep Vial DIAGNOSIS: 01 NEGATIVE FOR INTRAEPITHELIAL LESION OR MALIGNANCY. THIS SPECIMEN WAS RESCREENED PART OF OUR GENERAL INTERNIST PROGRAM. 01 Satisfactory for evaluation. No endocervical component is identified. 01 Mainor Batres, Project Specialist (ASCP) 01 Kristan Perez, Supervisory Project Specialist (ASCP) 01 Note 01 The Pap smear [...] <-Panic Low,>-Panic High,A-Abnormal,AA-Critical Abnormal Performed at: [address] [place] [address] Amy Shelton MD, Performed By: #### 1 [id number] #### [facility] [address] [place] [address] HPV 16+18+31+33+35+39+ 45+51+52+56+58+59+ 66+68 DNA Probe+sig amp Ql (Cvx) Negative Invalid Interpretation Code Negative [facility] Comment on above: Result Comment: This nucleic acid amplification test detects fourteen high-risk HPV types (16,18,31,33,35,39,45,51,52,56,58,59,66,68) without differentiation. Performed at: WB [address] [id number] MD Cat Reyes Performed at: =G [address] [id number] MD Cat Reyes Performed By: #### 1 [id number] #### [facility] [address] [place] [address] PAP [id number] 08-23-2020 Collection Technique BRUSH-SPATULA Normal [facility] Comment on above: Performed By: #### 1 [id number] #### [facility] [address] [place] [address] Gynecological Body Site ENDOCERVIX Normal [facility] Comment on above: Performed By: #### 1 [id number] #### [facility] [address] [place] [address] LMP or Menopause Date [id number] Invalid Interpretation Code [facility] Comment on above: Performed By: #### 1 [id number] #### [facility] [address] [place] [address] Previous Cytology Negative Normal [facility] Comment on above: Performed By: #### 1 [id number] #### [facility] [address] [place] [address] Previous Treatment NONE Normal [facility] Comment on above: Performed By: #### 1 [id number] #### [facility] [address] [place] [address] Physician Orderon 08-23-2020 Physician Order [id number] 1.00CD:127 Normal [facility] Coding Summary.on 08-10-2020 Coding Summary. 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 Nucleic acid amplification tests include RT-PCR and [...] detected) result in this assay. Performed at: [address] [id number] PhD Tae Lynne Performed By: #### S ARS-CoV-2, TRESAURE #### [facility] [address] [place] [address] Physician Orderon 08-08-2020 Physician Order [id number]. 00CD:127 Normal [facility] Encounters Encounter Date Encounter Type Care Provider Facility Start: 05-28-2023 End: 05-28-2023 ambulatory DOMINICK RICE Not Available Start: 05-14-2023 End: 05-14-2023 ambulatory DOMINICK RICE Not Available Start: 04-30-2023 End: 04-30-2023 ambulatory VICKY SOTO Not Available Start: 10-10-2022 End: 10-10-[address] VICKY SOTO . Facility:[facility] Start: 10-04-2022 End: 10-04-[address] FERNANDO COON . Facility:[facility] Payers Date Payer Category Payer Unknown [id number] [id number] [id number] 1985 Unknown [id number] [id number] [id number] 1985 Unknown [id number] 1986 Unknown [id number] 1985 Unknown [id number] 1958 Private Health Insurance [id number] Summary Purpose Family History No Family History Records FoundNo Family History Records FoundNo Family History Records Found Advance Directives No Advanced Directives Records FoundNo Advanced Directives Records FoundNo Advanced Directives Records Found Additional Source Comments INFORMATION SOURCE (unrecogn ized section and content) DATE CREATED AUTHOR 02/15/2021 [facility] DATE CREATED AUTHOR AUTHOR'S ORGANIZ ATION 10/18/2022 Erika Weir [facility] DATE CREATED AUTHOR AUTHOR'S ORGANIZ ATION 05/30/2023 [facility] FOR RECORDS PERTAINING TO PATIENTS WHO ARE [...] BE BASED ON THE PRIMARY CLINICAL RECORDS. [facility]. provides no warranty or guarantee of the accuracy or completeness of information in this document.
[2023-06-05 15:09] VITALS: BP 140/81; PULSE 89
== END 2023-06-05 16:02 | disposition home or self-care (01) ==
LOC: FBCO 07:33 → FBC 14:57
PROVIDERS: Visit Provider Obstetrics & Gynecology
DX: O41.03X0 Oligohydramnios, third trimester, not applicable or unspecified (principal)
CPT/HCPCS: 59025

== ENCOUNTER 2023-06-10 07:56 | Outpatient (OUT) | payer OTHER, SELFPAY ==
--- NOTE | 2023-06-10 15:53 | US_ITS ---
[address] [address] Patient Name: WATSON KWON MRN: [facility]:[id number] date: 1985 Sex: F Assigned Patient Location: [facility] Current Patient Location: LAB Accession/Order Number: [id number] Exam Date: 06/10/2023 16:00 Report Date: 06/10/2023 21:42 At the request of: VICKY SOTO Procedure: US OB BPP w non-stress EXAMINATION: US OB BPP w non-stress HISTORY: OLIGOHYDRAMNIOS COMPARISON: Ultrasound OB biophysical 06/02/2023 TECHNIQUE: Ultrasound biophysical profile was performed in the radiology department. BREATHING MOVEMENTS: 2.0 GROSS BODY MOVEMENTS: 2.0 TONE: 2.0 QUALITATIVE AMNIOTIC FLUID VOLUME: 2.0 PRESENTATION: CEPHALIC HEART RATE: 136.4 bpm bpm. AMNIOTIC FLUID VOLUME: 12.1 cm GESTATIONAL AGE: 36 weeks 1 days CONCLUSION: Total biophysical profile score 8.0. Electronically authenticated by: MARK NI Date: 06/10/2023 21:42
[2023-06-10 16:25] VITALS: BP 135/78; PULSE 94; TEMP 36.4
== END 2023-06-10 17:15 | disposition home or self-care (01) ==
LOC: US 07:56 → FBC 15:52
PROVIDERS: Visit Provider Obstetrics & Gynecology
DX: O41.03X0 Oligohydramnios, third trimester, not applicable or unspecified (principal); Z3A.36 36 weeks gestation of pregnancy
CPT/HCPCS: 76818; 87081

== ENCOUNTER 2023-06-10 19:01 | Outpatient (REF) | payer OTHER, SELFPAY | END 2023-06-10 19:02 | disposition home or self-care (01) | LOC: LAB 19:01 | PROVIDERS: Visit Provider Obstetrics & Gynecology | DX: Z34.93 Encounter for supervision of normal pregnancy, unspecified, third trimester (principal) | CPT/HCPCS: 87081 ==

== ENCOUNTER 2023-06-13 07:15 | Outpatient (OUT) | payer OTHER, SELFPAY ==
--- OUTSIDE RECORDS SUMMARY | 2023-06-13 07:17 | XMS_ITS | CCD ---
Author Name Unknown Address [address] [place] [address] Organization [facility] Care Team Providers Care Fourchette Sewer Name Role Phone PAY ., DR KING Attending Unavailable PAY ., DR KING Consulting Unavailable PAY ., DR KING Admitting Unavailable BRITTANY ., DR PERRY Attending Unavailable BRITTANY ., DR PERRY Consulting Unavailable BRITTANY ., DR PERRY Admitting Unavailable BRITTANY, VICKY Attending Unavailable KRYSTAL, DOMINICK Attending Unavailable KRYSTAL, DOMINICK Attending Unavailable BRITTANY, VICKY Attending Unavailable Problems Active Problems Problem Classification [...] 66on 10-17-2022 . . Normal [facility] Comment on above: Result Comment: Perf ormed at: WB Performed By: #### 4 [id number] #### [facility] [address] [address] [address] Hebert Noyola Age Gdln ACOG Testing 30-65 [facility] Comment on above: Performed By: #### 4 [id number] #### [facility] [address] [address] [address] Hebert Noyola DIAGNOSIS: Comment Normal [facility] Comment on above: Result Comment: NEGA TIVE FOR INTRAEPITHELIAL LESION OR MALIGNANCY. Performed at: WB Performed By: #### 4 [id number] #### [facility] [address] [address] [address] Hebert Noyola HPV Aptima Negative Normal Negative [facility] Comment on above: Result Comment: This nucleic acid amplification test detects fourteen high-risk HPV types (16,18,31,33,35,39,45,51,52,56,58,59,66,68) without differentiation. Performed at: =G Performed By: #### 4 [id number] #### [facility] [address] [place] [address] Dr. Hebert Noyola HPV Genotype Reflex Comment Normal [facility] Comment on above: Result Comment: Crit eria not met, HPV Genotype not performed. Performed at: WB Performed By: #### 4 [id number] #### [facility] [address] [place] [address] Dr. Hebert Noyola Methodology: Comment Normal [facility] Comment on above: Result Comment: This liquid based ThinPrep(R) pap test was screened with the use of an image guided system. Performed at: WB Performed By: #### 4 [id number] #### [facility] [address] [place] [address] Dr. Hebert Noyola Note: Comment Normal [facility] Comment on above: Result Comment: The Pap smear is a screening test designed to aid in the detection of premalignant and malignant conditions of the uterine cervix. It is not a diagnostic procedure and should not be used as the sole means of detecting cervical cancer. Both false-positive and false-negative reports do occur. . Performed at: WB Performed By: #### 4 [id number] #### [facility] [address] [place] [address] Dr. Hebert Noyola Performed by: Comment Normal [facility] Comment on above: Result Comment: Elizabeth Batres, Title Curative Specialist (ASCP) Performed at: WB Performed By: #### 4 [id number] #### [facility] [address] [place] [address] Dr. Hebert Noyola Specimen adequacy: Comment Normal [facility] Comment on above: Result Comment: Sati sfactory for evaluation. Endocervical and/or squamous metaplastic cells (endocervical component) are present. Performed at: WB Performed By: #### 4 [id number] #### [facility] [address] [place] [address] Dr. Hebert Noyola CHLAMYDIA/GONOCOCCUS TREASURE ( AB/URINE/PAPon 10-08-2022 Chlamydia trachomatis, TREASURE Negative Normal Negative [facility] Comment on above: Performed By: #### C T/NGNA #### [facility] [address] [place] [address] Dr. Hebert Noyola Neisseria gonorrhoeae, TREASURE Negative Normal Negative [facility] Comment on above: Performed By: #### C T/NGNA #### [facility] [address] [place] [address] Dr. Hebert Noyola ER URINE PROFILEon 3 Bilirubin Ql (U) Negative Normal NEGATIVE [facility] Comment on above: Performed By: #### EVARISTO BOWERS PREGU #### [facility] [address] [place] [address] Dr. Hebert Noyola Clarity (U) CLEAR Normal CLEAR [facility] Comment on above: Performed By: #### EVARISTO BOWERS PREGU #### [facility] [address] [place] [address] Dr. Hebert Noyola Color (U) LT. YELLOW Normal YELLOW [facility] Comment on above: Performed By: #### EVARISTO BOWERS PREGU #### [facility] [address] [place] [address] Dr. Hebert MEDLEY A micrscopic examination will be performed if indicated. Normal [facility] Comment on above: Performed By: #### EVARISTO BOWERS, PREGU #### [facility] [address] [place] [address] Dr. Hebert Noyola Glucose Ql (U) Negative Normal NEGATIVE [facility] Comment on above: Performed By: #### E RUR UMICRO, PREGU #### [facility] [address] [address] [address] Hebert Noyola Hemoglobin Ql (U) TRACE-INTACT Abnormal NEGATIVE [facility] Comment on above: Performed By: #### E RUR, UMICRO, PREGU #### [facility] [address] [address] [address] Hebert Noyola Ketones Ql (U) Negative Normal NEGATIVE [facility] Comment on above: Performed By: #### E RUR UMICRO, PREGU #### [facility] [address] [place] [address] Dr. Hebert Noyola LEUKOCYTES Negative Normal NEGATIVE [facility] Comment on above: Performed By: #### Thom RUR UMICRO, PREGU #### [facility] [address] [address] [address] Hebert Noyola Nitrite Ql (U) Negative Normal NEGATIVE [facility] Comment on above: Performed By: #### Thom RUR UMICRO, PREGU #### [facility] [address] [place] [address] Dr. Hebert Noyola pH (U) 7.0 [pH] Normal 5-9 [facility] Comment on above: Performed By: #### Thom RUR UMICRO, PREGU #### [facility] [address] [address] [address] Hebert Noyola SPEC GRAVITY 1.015 Normal 1.005-<=1.[address] [facility] Comment on above: Performed By: #### Thom RUR UMICRO, PREGU #### [facility] [address] [place] [address] Dr. Hebert Noyola UA PROTEIN Negative Normal NEGATIVE/ TRACE [facility] Comment on above: Performed By: #### E RUR, UMICRO, PREGU #### [facility] [address] [address] [address] Hebert Noyola UR MICRO IND INDICATED Normal [facility] Comment on above: Performed By: #### EVARISTO BOWERS, PREGU #### [facility] [address] [place] [address] Dr. Hebert Noyola Urobilinogen Qn (U) 0.2 {Maddy'U}/dL Normal 0.2 - 1.0 [facility] Comment on above: Performed By: #### EVARISTO BOWERS, PREGU #### [facility] [address] [address] [address] Hebert Noyola URon 10-04-2022 , QUAL Negative Normal NEGATIVE [facility] Comment on above: Performed By: #### EVARISTO BOWERS, PREGU #### [facility] [address] [place] [address] Dr. Hebert Noyola URINE MICROSCOPIC ONLYon BACTERIA NONE SEEN Normal NONE SEEN [facility] Comment on above: Performed By: #### EVARISTO BOWERS, PREGU #### [facility] [address] [place] [address] Dr. Hebert Noyola Bacteria identified Cx Nom (U) NOT INDICATED Normal [facility] Comment on above: Performed By: #### EVARISTO BOWERS, PREGU #### [facility] [address] [place] [address] Dr. Hebert Noyola CAST NONE SEEN Normal NONE SEEN [facility] Comment on above: Performed By: #### EVARISTO BOWERS, PREGU #### [facility] [address] [place] [address] Dr. Hebert Noyola Crystals LM Nom (Urine sed) NONE SEEN Normal NONE SEEN [facility] Comment on above: Performed By: #### EVARISTO BOWERS, PREGU #### [facility] [address] [place] [address] Dr. Hebert Noyola Epithelial cells LM Ql (Urine sed) FEW Abnormal NONE SEEN /RARE [facility] Comment on above: Performed By: #### EVARISTO BOWERS, PREGU #### [facility] [address] [place] [address] Dr. Hebert Noyola MUCOUS NONE SEEN Normal NONE SEEN [facility] Comment on above: Performed By: #### EVARISTO BOWERS PREGU #### [facility] [address] [address] [address] Hebert Noyola RBC 0-2 Normal 0-2 [facility] Comment on above: Performed By: #### EVARISTO BOWERS, PREGU #### [facility] [address] [address] [address] Hebert Noyola WBC NONE SEEN Normal NONE SEEN [facility] Comment on above: Performed By: #### EVARISTO BOWERS PREGU #### [facility] [address] [place] [address] Dr. Hebert Noyola WET PREPon 10-04-2022 CLUE CELLS NONE SEEN Normal NONE SEEN [facility] Comment on above: Performed By: #### W P #### [facility] [address] [place] [address] Dr. Hebert Noyola FUNGAL ELEMENTS NONE SEEN Normal NONE SEEN [facility] Comment on above: Performed By: #### W P #### [facility] [address] [address] [address] Hebert Noyola RBC -WET PREP FEW Abnormal NONE SEEN [facility] Comment on above: Performed By: #### W P #### [facility] [address] [address] [address] Hebert Noyola TRICHOMONAS NONE SEEN Normal NONE SEEN [facility] Comment on above: Performed By: #### W P #### [facility] [address] [address] [address] Hebert Noyola WBC- WET PREP FEW Abnormal NONE SEEN [facility] Comment on above: Performed By: #### W P #### [facility] [address] [address] [address] Hebert Noyola WET PREP BACTERIA FEW Abnormal NONE SEEN [facility] Comment on above: Performed By: #### W P #### [facility] [address] [place] [address] Dr. Hebert Noyola Physician Orderon 02-14-2021 Physician Order [id number] .00CD:127 Normal [facility] Coding Summary.on 09-02-2020 Coding Summary. CODING DATE: 09/01/2020 FINAL [facility] STATUS: Home (Routine DC) PAYOR: Ashmore ADMIT DX: REASON FOR VISIT DX: Z11.51 [...] Bautista Date Saved: 09/01/2020 10:25 pm Normal [facility] PAP [id number] 08-30-2020 Cytology report Cyto stain Doc (Cvx/Vag) Note Invalid Interpretation Code [facility] Comment on above: Result Comment: TEST S RESULT FLAG UNITS REF RANGE LAB Clinician Provided Cytology Information Source.............Endocervix LMP / Prev Treat...[id number]=[id number] No. of containers..01 ThinPrep Vial DIAGNOSIS: 01 NEGATIVE FOR INTRAEPITHELIAL LESION OR MALIGNANCY. THIS SPECIMEN WAS RESCREENED PART OF OUR FAMILY ASSISTANT PROGRAM. 01 Satisfactory for evaluation. No endocervical component is identified. 01 Mainor Batres, Title Curative Specialist (ASCP) 01 Kristan Perez, Supervisory Title Curative Specialist (ASCP) 01 Note 01 The Pap [...] <-Panic Low,>-Panic High,A-Abnormal,AA-Critical Abnormal Performed at: [address] [id number] Amy Shelton MD, Performed By: #### 1 [id number] #### [facility] [address] [place] [address] HPV 16+18+31+33+35+39+ 45+51+52+56+58+59+ 66+68 DNA Probe+sig amp Ql (Cvx) Negative Invalid Interpretation Code Negative [facility] Comment on above: Result Comment: This nucleic acid amplification test detects fourteen high-risk HPV types (16,18,31,33,35,39,45,51,52,56,58,59,66,68) without differentiation. Performed at: WB [facility] [id number] MD Cat Reyes Performed at: =G [facility] [id number] MD Cat Reyes Performed By: #### 1 [id number] #### [facility] [address] [place] [address] PAP [id number] 08-23-2020 Collection Technique BRUSH-SPATULA Normal [facility] Comment on above: Performed By: #### 1 [id number] #### [facility] [address] [place] [address] Gynecological Body Site ENDOCERVIX Normal [facility] Comment on above: Performed By: #### 1 [id number] #### [facility] [address] [place] [address] LMP or Menopause Date [id number] Invalid Interpretation Code [facility] Comment on above: Performed By: #### 1 [id number] #### [facility] [address] [place] [address] Previous Cytology Negative Normal [facility] Comment on above: Performed By: #### 1 [id number] #### [facility] [address] [place] [address] Previous Treatment NONE Normal [facility] Comment on above: Performed By: #### 1 [id number] #### [facility] [address] [place] [address] Physician Orderon 08-23-2020 Physician Order [id number]:127 Normal [facility] Coding Summary.on 08-10-2020 Coding Summary. CODING DATE: 08/10/2020 FINAL [facility] STATUS: Home (Routine DC) PAYOR: [...] CphT Date Saved: 08/10/2020 05:40 pm Normal [facility] SARS-CoV-2, NAAon 08-09-2020 SARS-CoV-2 (COVID-19) RNA TREASURE+probe Ql (Resp) Detected Abnormal Not Detected [facility] Comment on above: Result Comment: This nucleic acid amplification test was developed and its performance characteristics determined by [employer]. Nucleic acid amplification tests include RT-PCR and [...] detected) result in this assay. Performed at: [address] [id number] PhD Tae Lynne Performed By: #### S ARS-CoV-2, TREASURE #### [facility] [address] [place] [address] Physician Orderon 08-08-2020 Physician Order [id number]. 00CD:127 Normal [facility] Encounters Encounter Date Encounter Type Care Provider Facility Start: 06-10-2023 End: 06-10-2023 ambulatory VICKY SOTO Not Available Start: 05-28-2023 End: 05-28-2023 ambulatory DOMINICK RICE Not Available Start: 05-14-2023 End: 05-14-2023 ambulatory DOMINICK RICE Not Available Start: 04-30-2023 End: 04-30-2023 ambulatory VICKY SOTO Not Available Start: 10-10-2022 End: 10-10-[address] VICKY SOTO . Facility: Start: 10-04-2022 End: 10-04-[address] FERNANDO COON . Facility: Payers Date Payer Category Payer Unknown [id number] 2.16.84 [id number] 1986 Unknown [id number] 2.16.84 [id number] 1986 Unknown [id number] 1986 Unknown [id number] 1986 Unknown [id number] 1986 Unknown [id number] 1959 Private Health Insurance [id number] Summary Purpose Family History No Family History Records FoundNo Family History Records FoundNo Family History Records Found Advance Directives No Advanced Directives Records FoundNo Advanced Directives Records FoundNo Advanced Directives Records Found Additional Source Comments INFORMATION SOURCE (unrecogn ized section and content) DATE CREATED AUTHOR 02/15/2021 [facility] DATE CREATED AUTHOR AUTHOR'S ORGANIZ ATION 10/18/2022 [facility] DATE CREATED AUTHOR AUTHOR'S ORGANIZ ATION 06/12/2023 [facility] EPIC FOR RECORDS PERTAINING [...] BE BASED ON THE PRIMARY CLINICAL RECORDS. [employer] provides no warranty or guarantee of the accuracy or completeness of information in this document.
[2023-06-13 16:12] VITALS: BP 161/94; PULSE 82
[2023-06-13 16:28] VITALS: BP 145/85; PULSE 88
[2023-06-13 16:43] VITALS: BP 146/86; PULSE 75
== END 2023-06-13 16:55 | disposition home or self-care (01) ==
LOC: FBCO 07:15 → FBC 15:55
PROVIDERS: Visit Provider Obstetrics & Gynecology
DX: O41.00X0 Oligohydramnios, unspecified trimester, not applicable or unspecified (principal)
CPT/HCPCS: 59025

== ENCOUNTER 2023-06-17 07:40 | Outpatient (OUT) | payer OTHER, SELFPAY ==
--- OUTSIDE RECORDS SUMMARY | 2023-06-17 07:42 | XMS_ITS | CCD ---
Author Name Unknown Address [address] [place] [address] Organization [facility] Care Team Providers Care Rd Project Manager Name Role Phone PAY ., DR KING [...] 30 to 65on 10-17-2022 . . Normal [facility] Comment on above: Result Comment: Perf ormed at: WB Performed By: #### 4 [id number] #### [facility] [address] [place], [place] [address] Dr. Hebert Noyola Age Gdln ACOG Testing 30-65 [facility] Comment on above: Performed By: #### 4 [id number] #### [facility] [address] [place] [address] [address] Hebert Noyola DIAGNOSIS: Comment Normal [facility] Comment on above: Result Comment: NEGA TIVE FOR INTRAEPITHELIAL LESION OR MALIGNANCY. Performed at: WB Performed By: #### 4 [id number] #### [facility] [address] [place] [address] [address] Hebert Noyola HPV Aptima Negative Normal Negative [facility] Comment on above: Result Comment: This nucleic acid amplification test detects fourteen high-risk HPV types (16,18,31,33,35,39,45,51,52,56,58,59,66,68) without differentiation. Performed at: =G Performed By: #### 4 [id number] #### [facility] [address] [place] [address] Dr. Hebert Noyola HPV Genotype Reflex Comment Normal [facility] Comment on above: Result Comment: Crit eria not met, HPV Genotype not performed. Performed at: WB Performed By: #### 4 [id number] #### [facility] [address] [place] [address] Dr. Hebert Noyola Methodology: Comment Normal [facility] Comment on above: Result Comment: This liquid based ThinPrep(R) pap test was screened with the use of an image guided system. Performed at: WB Performed By: #### 4 [id number] #### [facility] [address] [place] [address] Dr. Hebert Noyola Note: Comment Normal [facility] Comment on above: Result Comment: The Pap smear is a screening test designed to aid in the detection of premalignant and malignant conditions of the uterine cervix. It is not a diagnostic procedure and should not be used as the sole means of detecting cervical cancer. Both false-positive and false-negative reports do occur. . Performed at: WB Performed By: #### 4 [id number] #### [facility] [address] [place] [address] Dr. Hebert Noyola Performed by: Comment Normal [facility] Comment on above: Result Comment: Elizabeth Batres, Planer Offbearer (ASCP) Performed at: WB Performed By: #### 4 [id number] #### [facility] [address] [place] [address] Dr. Hebert Noyola Specimen adequacy: Comment Normal [facility] Comment on above: Result Comment: Sati sfactory for evaluation. Endocervical and/or squamous metaplastic cells (endocervical component) are present. Performed at: WB Performed By: #### 4 [id number] #### [facility] [address] [place] [address] Dr. Hebert Noyola CHLAMYDIA/GONOCOCCUS TREASURE ( AB/URINE/PAPon 10-08-2022 Chlamydia trachomatis, TREASURE Negative Normal Negative [facility] Comment on above: Performed By: #### C T/NGNA #### [facility] [address] [place] [address] Dr. Hebert Noyola Neisseria gonorrhoeae, TREASURE Negative Normal Negative [facility] Comment on above: Performed By: #### C T/NGNA #### [facility] [address] [place] [address] Dr. Hebert Noyola ER URINE PROFILEon 3 Bilirubin Ql (U) Negative Normal NEGATIVE [facility] Comment on above: Performed By: #### EVARISTO BOWERS PREGU #### [facility] [address] [place] [address] Dr. Hebert Noyola Clarity (U) CLEAR Normal CLEAR [facility] Comment on above: Performed By: #### EVARISTO BOEWRS PREGU #### [facility] [address] [place] [address] Dr. Hebert Noyola Color (U) LT. YELLOW Normal YELLOW [facility] Comment on above: Performed By: #### EVARISTO BOWERS PREGU #### [facility] [address] [place] [address] Dr. Hebert MEDLEY A micrscopic examination will be performed if indicated. Normal [facility] Comment on above: Performed By: #### EVARISTO BOWERS, PREGU #### [facility] [address] [place] [address] Dr. Hebert Noyola Glucose Ql (U) Negative Normal NEGATIVE [facility] Comment on above: Performed By: #### E RUR UMICRO, PREGU #### [facility] [address] [place] [address] [address] Hebert Noyola Hemoglobin Ql (U) TRACE-INTACT Abnormal NEGATIVE [facility] Comment on above: Performed By: #### E RUR, UMICRO, PREGU #### [facility] [address] [place] [address] [address] Hebert Noyola Ketones Ql (U) Negative Normal NEGATIVE [facility] Comment on above: Performed By: #### E RUR UMICRO, PREGU #### [facility] [address] [place] [address] Dr. Hebert Noyola LEUKOCYTES Negative Normal NEGATIVE [facility] Comment on above: Performed By: #### Thom RUR UMICRO, PREGU #### [facility] [address] [place] [address] [address] Hebert Noyola Nitrite Ql (U) Negative Normal NEGATIVE [facility] Comment on above: Performed By: #### Thom RUR UMICRO, PREGU #### [facility] [address] [place] [address] Dr. Hebert Noyola pH (U) 7.0 [pH] Normal 5-9 [facility] Comment on above: Performed By: #### Thom RUR UMICRO, PREGU #### [facility] [address] [place] [address] [address] Hebert Noyola SPEC GRAVITY 1.015 Normal 1.005-<=1.025 [facility] Comment on above: Performed By: #### Thom RUR UMICRO, PREGU #### [facility] [address] [place] [address] Dr. Hebert Noyola UA PROTEIN Negative Normal NEGATIVE/ TRACE [facility] Comment on above: Performed By: #### E RUR, UMICRO, PREGU #### [facility] [address] [place] [address] [address] Hebert Noyola UR MICRO IND INDICATED Normal [facility] Comment on above: Performed By: #### EVARISTO BOWERS, PREGU #### [facility] [address] [place] [address] Dr. Hebert Noyola Urobilinogen Qn (U) 0.2 {Maddy'U}/dL Normal 0.2 - 1.0 [facility] Comment on above: Performed By: #### EVARISTO BOWERS, PREGU #### [facility] [address] [place] [address] [address] Hebert Noyola URon 10-04-2022 , QUAL Negative Normal NEGATIVE [facility] Comment on above: Performed By: #### EVARISTO BOWERS, PREGU #### [facility] [address] [place] [address] Dr. Hebert Noyola URINE MICROSCOPIC ONLYon BACTERIA NONE SEEN Normal NONE SEEN [facility] Comment on above: Performed By: #### EVARISTO BOWERS, PREGU #### [facility] [address] [place] [address] Dr. Hebert Noyola Bacteria identified Cx Nom (U) NOT INDICATED Normal [facility] Comment on above: Performed By: #### EVARISTO BOWERS, PREGU #### [facility] [address] [place] [address] Dr. Hebert Noyola CAST NONE SEEN Normal NONE SEEN [facility] Comment on above: Performed By: #### EVARISTO BOWERS, PREGU #### [facility] [address] [place] [address] Dr. Hebert Noyola Crystals LM Nom (Urine sed) NONE SEEN Normal NONE SEEN [facility] Comment on above: Performed By: #### EVARISTO BOWERS, PREGU #### [facility] [address] [place] [address] Dr. Hebert Noyola Epithelial cells LM Ql (Urine sed) FEW Abnormal NONE SEEN /RARE [facility] Comment on above: Performed By: #### EVARISTO BOWERS, PREGU #### [facility] [address] [place] [address] Dr. Hebert Noyola MUCOUS NONE SEEN Normal NONE SEEN [facility] Comment on above: Performed By: #### EVARISTO BOWERS PREGU #### [facility] [address] [place] [address] [address] Hebert Noyola RBC 0-2 Normal 0-2 [facility] Comment on above: Performed By: #### EVARISTO BOWERS, PREGU #### [facility] [address] [place] [address] [address] Hebert Noyola WBC NONE SEEN Normal NONE SEEN [facility] Comment on above: Performed By: #### EVARISTO BOWERS PREGU #### [facility] [address] [place] [address] Dr. Hebert Noyola WET PREPon 10-04-2022 CLUE CELLS NONE SEEN Normal NONE SEEN [facility] Comment on above: Performed By: #### W P #### [facility] [address] [place] [address] Dr. Hebert Noyola FUNGAL ELEMENTS NONE SEEN Normal NONE SEEN [facility] Comment on above: Performed By: #### W P #### [facility] [address] [place] [address] [address] Hebert Noyola RBC -WET PREP FEW Abnormal NONE SEEN [facility] Comment on above: Performed By: #### W P #### [facility] [address] [place] [address] [address] Hebert Noyola TRICHOMONAS NONE SEEN Normal NONE SEEN [facility] Comment on above: Performed By: #### W P #### [facility] [address] [place] [address] [address] Hebert Noyola WBC- WET PREP FEW Abnormal NONE SEEN [facility] Comment on above: Performed By: #### W P #### [facility] [address] [place] [address] [address] Hebert Noyola WET PREP BACTERIA FEW Abnormal NONE SEEN [facility] Comment on above: Performed By: #### W P #### [facility] [address] [place] [address] Dr. Hebert Noyola Physician Orderon 02-14-2021 Physician Order [id number] .00CD:127 Normal [facility] Coding Summary.on 09-02-2020 Coding Summary. CODING DATE: 09/01/2020 FINAL [facility] STATUS: Home (Routine DC) PAYOR: Nikolski ADMIT DX: REASON FOR VISIT DX: Z11.51 [...] 09/01/2020 10:25 pm Normal [facility] PAP [id number] 08-30-2020 Cytology report Cyto stain Doc (Cvx/Vag) Note Invalid Interpretation Code [facility] Comment on above: Result Comment: TEST S RESULT FLAG UNITS REF RANGE LAB Clinician Provided Cytology Information Source.............Endocervix LMP / Prev Treat...[id number] No. of containers..01 ThinPrep Vial DIAGNOSIS: 01 NEGATIVE FOR INTRAEPITHELIAL LESION OR MALIGNANCY. THIS SPECIMEN WAS RESCREENED PART OF OUR NETWORK COMMUNICATIONS ENGINEER PROGRAM. 01 Satisfactory for evaluation. No endocervical component is identified. 01 Mainor Batres, Planer Offbearer (ASCP) 01 Kristan Perez, Supervisory Planer Offbearer (ASCP) 01 Note 01 The Pap smear [...] <-Panic Low,>-Panic High,A-Abnormal,AA-Critical Abnormal Performed at: [address] [id number] Amy Shelton MD, Performed By: #### 1 [id number] #### [facility] [address] [place] [address] HPV 16+18+31+33+35+39+ 45+51+52+56+58+59+ 66+68 DNA Probe+sig amp Ql (Cvx) Negative Invalid Interpretation Code Negative [facility] Comment on above: Result Comment: This nucleic acid amplification test detects fourteen high-risk HPV types (16,18,31,33,35,39,45,51,52,56,58,59,66,68) without differentiation. Performed at: WB [facility] [id number] MD Cat Reyes Performed at: =G [facility] [id number] MD Cat Reyes Performed By: #### 1 [id number] #### [facility] [address] [place] [address] PAP [id number] 08-23-2020 Collection Technique BRUSH-SPATULA Normal [facility] Comment on above: Performed By: #### 1 [id number] #### [facility] [address] [place] [address] Gynecological Body Site ENDOCERVIX Normal [facility] Comment on above: Performed By: #### 1 [id number] #### [facility] [address] [place] [address] LMP or Menopause Date [id number] Invalid Interpretation Code [facility] Comment on above: Performed By: #### 1 [id number] #### [facility] [address] [place] [address] Previous Cytology Negative Normal [facility] Comment on above: Performed By: #### 1 [id number] #### [facility] [address] [place] [address] Previous Treatment NONE Normal [facility] Comment on above: Performed By: #### 1 [id number] #### [facility] [address] [place] [address] Physician Orderon 08-23-2020 Physician Order [id number]# 1.00CD:127 Normal [facility] Coding Summary.on 08-10-2020 Coding Summary. CODING DATE: 08/10/2020 FINAL [facility] STATUS: Home (Routine DC) PAYOR: Commercial [...] TREASURE+probe Ql (Resp) Detected Abnormal Not Detected [facility] Comment on above: Result Comment: This nucleic acid amplification test was developed and its performance characteristics determined by [employer]. Nucleic acid amplification tests include RT-PCR and [...] detected) result in this assay. Performed at: [address] [id number] PhD Tae Lynne Performed By: #### S ARS-CoV-2, TREASURE #### [facility] [address] [place] [address] Physician Orderon 08-08-2020 Physician Order [id number]. 00CD:127 Normal [facility] Encounters Encounter Date Encounter Type Care Provider Facility Start: 06-10-2023 End: 06-10-2023 ambulatory VIKCY SOTO Not Available Start: 05-28-2023 End: 05-28-2023 ambulatory DOMINICK RICE Not Available Start: 05-14-2023 End: 05-14-2023 ambulatory DOMINICK RICE Not Available Start: 04-30-2023 End: 04-30-2023 ambulatory VICKY SOTO Not Available Start: 10-10-2022 End: 10-10-[address] VICKY SOTO . Facility: Start: 10-04-2022 End: 10-04-[address] FERNANDO COON . Facility: Payers Date Payer Category Payer Unknown [id number] 2.16.84 [id number] 1985 Unknown [id number] 2.16.84 [id number] 1985 Unknown [id number] 1986 Unknown [id number] 1986 Unknown [id number] 1986 Unknown [id number] 1959 Private Health Insurance [id number] Summary Purpose Family History No Family History Records FoundNo Family History Records FoundNo Family History Records Found Advance Directives No Advanced Directives Records FoundNo Advanced Directives Records FoundNo Advanced Directives Records Found Additional Source Comments INFORMATION SOURCE (unrecogn ized section and content) DATE CREATED AUTHOR 02/15/2021 [facility] DATE CREATED AUTHOR AUTHOR'S ORGANIZ ATION 10/18/2022 [facility] DATE CREATED AUTHOR AUTHOR'S ORGANIZ ATION 06/12/2023 [facility] EPIC FOR RECORDS PERTAINING [...] BE BASED ON THE PRIMARY CLINICAL RECORDS. [employer] provides no warranty or guarantee of the accuracy or completeness of information in this document.
--- NOTE | 2023-06-17 15:59 | US_ITS ---
[address] [address] Patient Name: WATSON KWON MRN: [facility]:[id number] date: 1985 Sex: F Assigned Patient Location: [facility] Current Patient Location: Accession/Order Number: [id number] Exam Date: 06/17/2023 16:00 Report Date: 06/18/2023 07:14 At the request of: VICKY SOTO Procedure: US OB BPP w non-stress EXAMINATION: US OB BPP w non-stress HISTORY: OLIGOHYDRAMINOS COMPARISON: No relevant comparison available. TECHNIQUE: Ultrasound biophysical profile was performed in the radiology department. FINDINGS: BREATHING MOVEMENTS: 2.0 GROSS BODY MOVEMENTS: 2.0 TONE: 2.0 QUALITATIVE AMNIOTIC FLUID VOLUME: 2.0 PRESENTATION: CEPHALIC HEART RATE: 128.0 bpm H.B./min AMNIOTIC FLUID VOLUME: 9.8 cm cm GESTATIONAL AGE: 37 weeks 1 days CONCLUSION: Total biophysical profile score: 8.0 Electronically authenticated by: LOWELL BARRAZA Date: 06/18/2023 07:14
[2023-06-17 16:28] VITALS: BP 143/86; PULSE 80
== END 2023-06-17 17:23 | disposition home or self-care (01) ==
LOC: US 07:40 → FBC 15:56 → US 16:00 → FBC 16:02
PROVIDERS: Visit Provider Obstetrics & Gynecology
DX: O41.03X0 Oligohydramnios, third trimester, not applicable or unspecified (principal); Z3A.37 37 weeks gestation of pregnancy
CPT/HCPCS: 76818

== ENCOUNTER 2023-06-20 07:08 | Outpatient (OUT) | payer OTHER, SELFPAY ==
--- OUTSIDE RECORDS SUMMARY | 2023-06-20 07:11 | XMS_ITS | CCD ---
Author Name Unknown Address [address] [place] [address] Organization [facility] Care Team Providers Care Sales Record Clerk Name Role Phone PAY ., DR KING Attending Unavailable PAY ., DR KING Consulting Unavailable PAY ., DR KING Admitting Unavailable BRITTANY ., DR PERRY Attending Unavailable BRITTANY ., DR PERRY Consulting Unavailable BRITTANY ., DR PERRY Admitting Unavailable KRYSTALDOMINICK Attending Unavailable BRITTANY, VICKY Attending Unavailable KRYSTAL DOMINICK Attending Unavailable KRYSTAL DOMIINCK Attending Unavailable BRITTANY, VICKY Attending Unavailable Problems [...] 30 to 65on 10-17-2022 . . Normal [facility] Comment on above: Result Comment: Perf ormed at: WB Performed By: #### [id number] #### [facility] [address] [place], [place] [address] Dr. Hebert Noyola Age Gdln ACOG Testing 30-65 Normal [facility] Comment on above: Performed By: #### 4 [id number] #### [facility] [address] [address] [address] Hebert Noyola DIAGNOSIS: Comment Normal [facility] Comment on above: Result Comment: NEGA TIVE FOR INTRAEPITHELIAL LESION OR MALIGNANCY. Performed at: WB Performed By: #### 4 [id number] #### [facility] [address] [place] [address] Dr. Hebert Noyola HPV Aptima Negative Normal Negative [facility] Comment on above: Result Comment: This nucleic acid amplification test detects fourteen high-risk HPV types (16,18,31,33,35,39,45,51,52,56,58,59,66,68) without differentiation. Performed at: =G Performed By: #### 4 [id number] #### [facility] [address] [place] [address] Dr. Hebert Noyola HPV Genotype Reflex Comment Normal [facility] Comment on above: Result Comment: Crit eria not met, HPV Genotype not performed. Performed at: WB Performed By: #### 4 [id number] #### [facility] [address] [place] [address] Dr. Hebert Noyola Methodology: Comment Normal [facility] Comment on above: Result Comment: This liquid based ThinPrep(R) pap test was screened with the use of an image guided system. Performed at: WB Performed By: #### 4 [id number] #### [facility] [address] [place] [address] Dr. Hebert Noyola Note: Comment Normal [facility] Comment on above: Result Comment: The Pap smear is a screening test designed to aid in the detection of premalignant and malignant conditions of the uterine cervix. It is not a diagnostic procedure and should not be used as the sole means of detecting cervical cancer. Both false-positive and false-negative reports do occur. . Performed at: WB Performed By: #### 4 [id number] #### [facility] [address] [place] [address] Dr. Hebert Noyola Performed by: Comment Normal [facility] Comment on above: Result Comment: Elizabeth Batres, Last Sorter (ASCP) Performed at: WB Performed By: #### 4 [id number] #### [facility] [address] [place] [address] Dr. Hebert Noyola Specimen adequacy: Comment Normal [facility] Comment on above: Result Comment: Sati sfactory for evaluation. Endocervical and/or squamous metaplastic cells (endocervical component) are present. Performed at: WB Performed By: #### 4 [id number] #### [facility] [address] [place] [address] Dr. Hebert Noyola CHLAMYDIA/GONOCOCCUS TREASURE ( AB/URINE/PAPon 10-08-2022 Chlamydia trachomatis, TREASURE Negative Normal Negative [facility] Comment on above: Performed By: #### C T/NGNA #### [facility] [address] [place] [address] Dr. Hebert Noyola Neisseria gonorrhoeae, TREASURE Negative Normal Negative [facility] Comment on above: Performed By: #### C T/NGNA #### [facility] [address] [place] [address] Dr. Hebert Noyola ER URINE PROFILEon 3 Bilirubin Ql (U) Negative Normal NEGATIVE [facility] Comment on above: Performed By: #### EVARISTO BOWERS PREGU #### [facility] [address] [place] [address] Dr. Hebert Noyola Clarity (U) CLEAR Normal CLEAR [facility] Comment on above: Performed By: #### EVARISTO BOWERS PREGU #### [facility] [address] [place] [address] Dr. Hebert Noyola Color (U) LT. YELLOW Normal YELLOW [facility] Comment on above: Performed By: #### EVARISTO BOWERS PREGU #### [facility] [address] [place] [address] Dr. Hebert MEDLEY A micrscopic examination will be performed if indicated. Normal [facility] Comment on above: Performed By: #### EVARISTO BOWERS PREGU #### [facility] [address] [address] [address] Hebert Noyola Glucose Ql (U) Negative Normal NEGATIVE [facility] Comment on above: Performed By: #### EVARISTO BOWERS, PREGU #### [facility] [address] [place] [address] Dr. Hebert Noyola Hemoglobin Ql (U) TRACE-INTACT Abnormal NEGATIVE [facility] Comment on above: Performed By: #### EVARISTO BOWERS, PREGU #### [facility] [address] [place] [address] Dr. Hebert Noyola Ketones Ql (U) Negative Normal NEGATIVE [facility] Comment on above: Performed By: #### EVARISTO BOWERS, PREGU #### [facility] [address] [place] [address] Dr. Hebert Noyola LEUKOCYTES Negative Normal NEGATIVE [facility] Comment on above: Performed By: #### EVARISTO BOWERS PREGU #### [facility] [address] [place] [address] Dr. Hebert Noyola Nitrite Ql (U) Negative Normal NEGATIVE [facility] Comment on above: Performed By: #### EVARISTO BOWERS PREGU #### [facility] [address] [place] [address] Dr. Hebert Noyola pH (U) 7.0 [pH] Normal 5-9 [facility] Comment on above: Performed By: #### EVARISTO BOWERS PREGU #### [facility] [address] [place] [address] Dr. Hebert Noyola SPEC GRAVITY 1.015 Normal 1.005-<=1.025 [facility] Comment on above: Performed By: #### EVARISTO BOWERS PREGU #### [facility] [address] [place] [address] Dr. Hebert Noyola UA PROTEIN Negative Normal NEGATIVE/ TRACE [facility] Comment on above: Performed By: #### EVARISTO BOWERS, PREGU #### [facility] [address] [place] [address] Dr. Hebert Noyola UR MICRO IND INDICATED Normal [facility] Comment on above: Performed By: #### EVARISTO BOWERS, PREGU #### [facility] [address] [address] [address] Hebert Noyola Urobilinogen Qn (U) 0.2 {Maddy'U}/dL Normal 0.2 - 1.0 [facility] Comment on above: Performed By: #### EVARISTO BOWERS, PREGU #### [facility] [address] [address] [address] Hebert Noyola URon 10-04-2022 , QUAL Negative Normal NEGATIVE [facility] Comment on above: Performed By: #### EVARISTO BOWERS, PREGU #### [facility] [address] [place] [address] Dr. Hebert Noyola URINE MICROSCOPIC ONLYon BACTERIA NONE SEEN Normal NONE SEEN [facility] Comment on above: Performed By: #### EVARISTO BOWERS, PREGU #### [facility] [address] [address] [address] Hebert Noyola Bacteria identified Cx Nom (U) NOT INDICATED Normal [facility] Comment on above: Performed By: #### EVARISTO BOWERS, PREGU #### [facility] [address] [place] [address] Dr. Hebert Noyola CAST NONE SEEN Normal NONE SEEN [facility] Comment on above: Performed By: #### EVARISTO BOWERS, PREGU #### [facility] [address] [address] [address] Hebert Noyola Crystals LM Nom (Urine sed) NONE SEEN Normal NONE SEEN [facility] Comment on above: Performed By: #### EVARISTO BOWERS, PREGU #### [facility] [address] [place] [address] Dr. Hebert Noyola Epithelial cells LM Ql (Urine sed) FEW Abnormal NONE SEEN /RARE [facility] Comment on above: Performed By: #### EVARISTO BOWERS, PREGU #### [facility] [address] [address] [address] Hebert Noyola MUCOUS NONE SEEN Normal NONE SEEN [facility] Comment on above: Performed By: #### EVARISTO BOWERS PREGU #### [facility] [address] [place] [address] Dr. Hebert Noyola RBC 0-2 Normal 0-2 [facility] Comment on above: Performed By: #### EVARISTO BOWERS PREGU #### [facility] [address] [address] [address] Hebert Noyola WBC NONE SEEN Normal NONE SEEN [facility] Comment on above: Performed By: #### EVARISTO BOWERS PREGU #### [facility] [address] [place] [address] Dr. Hebert Noyola WET PREPon 10-04-2022 CLUE CELLS NONE SEEN Normal NONE SEEN [facility] Comment on above: Performed By: #### W P #### [facility] [address] [place] [address] Dr. Hebert Noyola FUNGAL ELEMENTS NONE SEEN Normal NONE SEEN [facility] Comment on above: Performed By: #### W P #### [facility] [address] [place] [address] Dr. Hebert Noyola RBC -WET PREP FEW Abnormal NONE SEEN [facility] Comment on above: Performed By: #### W P #### [facility] [address] [address] [address] Hebert Noyola TRICHOMONAS NONE SEEN Normal NONE SEEN [facility] Comment on above: Performed By: #### W P #### [facility] [address] [place] [address] Dr. Hebert Noyola WBC- WET PREP FEW Abnormal NONE SEEN [facility] Comment on above: Performed By: #### W P #### [facility] [address] [place] [address] Dr. Hebert Noyola WET PREP BACTERIA FEW Abnormal NONE SEEN [facility] Comment on above: Performed By: #### W P #### [facility] [address] [place] [address] Dr. Hebert Noyola Physician Orderon 02-14-2021 Physician Order [id number] .[id number]:127 Normal [facility] Coding Summary.on 09-02-2020 Coding Summary. CODING DATE: 09/01/2020 FINAL [facility] STATUS: Home (Routine DC) PAYOR: [place] ADMIT DX: REASON FOR VISIT DX: Z11.51 [...] Bautista Date Saved: 09/01/2020 10:25 pm Normal [facility] PAP [id number] 08-30-2020 Cytology report Cyto stain Doc (Cvx/Vag) Note Invalid Interpretation Code [facility] Comment on above: Result Comment: TEST S RESULT FLAG UNITS REF RANGE LAB Clinician Provided Cytology Information Source.............Endocervix LMP / Prev Treat...EVF=[id number] No. of containers..01 ThinPrep Vial DIAGNOSIS: 01 NEGATIVE FOR INTRAEPITHELIAL LESION OR MALIGNANCY. THIS SPECIMEN WAS RESCREENED PART OF OUR PATIENT INSURANCE CLERK PROGRAM. 01 Satisfactory for evaluation. No endocervical component is identified. 01 Mainor Batres, Last Sorter (ASCP) 01 Kristan Perez, Supervisory Last Sorter (ASCP) 01 Note 01 The Pap smear [...] <-Panic Low,>-Panic High,A-Abnormal,AA-Critical Abnormal Performed at: [address] [id number] Amy Shelton MD, Performed By: #### 1 [id number] #### [facility] [address] [place] [address] HPV 16+18+31+33+35+39+ 45+51+52+56+58+59+ 66+68 DNA Probe+sig amp Ql (Cvx) Negative Invalid Interpretation Code Negative [facility] Comment on above: Result Comment: This nucleic acid amplification test detects fourteen high-risk HPV types (16,18,31,33,35,39,45,51,52,56,58,59,66,68) without differentiation. Performed at: [facility] [id number] MD Cat Reyes Performed at: =[address] [id number] MD Cat Reyes Performed By: #### 1 [id number] #### [facility] [address] [place] [address] PAP [id number] 08-23-2020 Collection Technique BRUSH-SPATULA Normal [facility] Comment on above: Performed By: #### 1 [id number] #### [facility] [address] [place] [address] Gynecological Body Site ENDOCERVIX Normal [facility] Comment on above: Performed By: #### 1 [id number] #### [facility] [address] [place] [address] LMP or Menopause Date [id number] Invalid Interpretation Code [facility] Comment on above: Performed By: #### 1 [id number] #### [facility] [address] [place] [address] Previous Cytology Negative Normal [facility] Comment on above: Performed By: #### 1 [id number] #### [facility] [address] [place] [address] Previous Treatment NONE Normal [facility] Comment on above: Performed By: #### 1 [id number] #### [facility] [address] [place] [address] Physician Orderon 08-23-2020 Physician Order [id number]:127 Normal [facility] Coding Summary.on 08-10-2020 Coding Summary. CODING DATE: 08/10/2020 FINAL [facility] STATUS: Home (Routine DC) PAYOR: [...] CphT Date Saved: 08/10/2020 05:40 pm Normal [facility] SARS-CoV-2, NAAon 08-09-2020 SARS-CoV-2 (COVID-19) RNA TREASURE+probe Ql (Resp) Detected Abnormal Not Detected [facility] Comment on above: Result Comment: This nucleic acid amplification test was developed and its performance characteristics determined by [employer]. Nucleic acid amplification tests include RT-PCR and [...] detected) result in this assay. Performed at: [facility] [id number] PhD Tae Lynne Performed By: #### S ARS-CoV-2, TREASURE #### [facility] [address] [place] [address] Physician Orderon 08-08-2020 Physician Order [id number]. 00CD:127 Normal [facility] Encounters Encounter Date Encounter Type Care Provider Facility Start: 06-17-2023 End: 06-17-2023 ambulatory DOMINICK RICE Not Available Start: 06-10-2023 End: 06-10-2023 ambulatory VICKY SOTO Not Available Start: 05-28-2023 End: 05-28-2023 ambulatory DOMINICK RICE Not Available Start: 05-14-2023 End: 05-14-2023 ambulatory DOMINICK RICE Not Available Start: 04-30-2023 End: 04-30-2023 ambulatory VICKY SOTO Not Available Start: 10-10-2022 End: 10-10-[address] VICKY SOTO . Facility: Start: 10-04-2022 End: 10-04-[address] FERNANDO COON . Facility:[facility] Payers Date Payer Category Payer Unknown [id number] [id number] [id number] 1985 Unknown [id number] 2.16.84 [id number] 1986 Unknown [id number] 1986 Unknown [id number] 1986 Unknown [id number] 1986 Unknown [id number] 1986 Unknown [id number] 1959 Private Health Insurance [id number] Summary Purpose Family History No Family History Records FoundNo Family History Records FoundNo Family History Records Found Advance Directives No Advanced Directives Records FoundNo Advanced Directives Records FoundNo Advanced Directives Records Found Additional Source Comments INFORMATION SOURCE (unrecogn ized section and content) DATE CREATED AUTHOR 02/15/2021 [facility] DATE CREATED AUTHOR AUTHOR'S ORGANIZ ATION 10/18/2022 [facility] DATE CREATED AUTHOR AUTHOR'S ORGANIZ ATION 06/18/2023 [facility] FOR RECORDS PERTAINING TO PATIENTS WHO [...] BE BASED ON THE PRIMARY CLINICAL RECORDS. [facility] [employer] provides no warranty or guarantee of the accuracy or completeness of information in this document.
[2023-06-20 13:03] VITALS: BP 168/83; PULSE 84
[2023-06-20 13:04] VITALS: BP 156/71; PULSE 91
== END 2023-06-20 13:50 | disposition home or self-care (01) ==
LOC: FBCO 07:08 → FBC 13:00
PROVIDERS: Visit Provider Obstetrics & Gynecology
DX: O41.03X0 Oligohydramnios, third trimester, not applicable or unspecified (principal)
CPT/HCPCS: 59025

== ENCOUNTER 2023-06-23 05:12 | Inpatient (IN) | payer OTHER, SELFPAY ==
[2023-06-23] VITALS (49 sets, daily range): BP systolic 126–207; BP diastolic 70–109; PULSE 70–101; RESP 16; TEMP 36.7–36.8
--- OUTSIDE RECORDS SUMMARY | 2023-06-23 05:14 | XMS_ITS | CCD ---
Author Name Unknown Address [address] [place] [address] Organization [facility] Care Team Providers Care Atm Servicer Name Role Phone PAY ., DR KING Attending Unavailable PAY ., DR KING Consulting Unavailable PAY ., DR KING Admitting Unavailable BRITTANY ., DR PERRY Attending Unavailable BRITTANY ., DR PERRY Consulting Unavailable BRITTANY ., DR PERRY Admitting Unavailable KRYSTALDOMINICK ARTIS Attending Unavailable BRITTANY, VICKY Attending Unavailable KRYSTAL DOMINICK Attending Unavailable KRYSTAL DOMINICK Attending Unavailable BRITTANY, VICKY Attending Unavailable [...] 30 to 65on 10-17-2022 . . Normal [facility] Comment on above: Result Comment: Perf ormed at: WB Performed By: #### [id number] #### [facility] [address] [place], [place] [address] Dr. Hebert Noyola Age Gdln ACOG Testing 30-65 Normal [facility] Comment on above: Performed By: #### 4 [id number] #### [facility] [address] [place] [address] [address] Hebert Noyola DIAGNOSIS: Comment Normal [facility] Comment on above: Result Comment: NEGA TIVE FOR INTRAEPITHELIAL LESION OR MALIGNANCY. Performed at: WB Performed By: #### 4 [id number] #### [facility] [address] [place] [address] Dr. Hebert Noyola HPV Aptima Negative Normal Negative [facility] Comment on above: Result Comment: This nucleic acid amplification test detects fourteen high-risk HPV types (16,18,31,33,35,39,45,51,52,56,58,59,66,68) without differentiation. Performed at: =G Performed By: #### 4 [id number] #### [facility] [address] [place] [address] Dr. Hebert Noyola HPV Genotype Reflex Comment Normal [facility] Comment on above: Result Comment: Crit eria not met, HPV Genotype not performed. Performed at: WB Performed By: #### 4 [id number] #### [facility] [address] [place] [address] Dr. Hebert Noyola Methodology: Comment Normal [facility] Comment on above: Result Comment: This liquid based ThinPrep(R) pap test was screened with the use of an image guided system. Performed at: WB Performed By: #### 4 [id number] #### [facility] [address] [place] [address] Dr. Hebert Noyola Note: Comment Normal [facility] Comment on above: Result Comment: The Pap smear is a screening test designed to aid in the detection of premalignant and malignant conditions of the uterine cervix. It is not a diagnostic procedure and should not be used as the sole means of detecting cervical cancer. Both false-positive and false-negative reports do occur. . Performed at: WB Performed By: #### 4 [id number] #### [facility] [address] [place] [address] Dr. Hebert Noyola Performed by: Comment Normal [facility] Comment on above: Result Comment: Elizabeth Batres, Lubrication Equipment Servicer (ASCP) Performed at: WB Performed By: #### 4 [id number] #### [facility] [address] [place] [address] Dr. Hebert Noyola Specimen adequacy: Comment Normal [facility] Comment on above: Result Comment: Sati sfactory for evaluation. Endocervical and/or squamous metaplastic cells (endocervical component) are present. Performed at: WB Performed By: #### 4 [id number] #### [facility] [address] [place] [address] Dr. Hebert Noyola CHLAMYDIA/GONOCOCCUS TREASURE ( AB/URINE/PAPon 10-08-2022 Chlamydia trachomatis, TREASURE Negative Normal Negative [facility] Comment on above: Performed By: #### C T/NGNA #### [facility] [address] [place] [address] Dr. Hebert Noyola Neisseria gonorrhoeae, TREASURE Negative Normal Negative [facility] Comment on above: Performed By: #### C T/NGNA #### [facility] [address] [place] [address] Dr. Hebert Noyola ER URINE PROFILEon 3 Bilirubin Ql (U) Negative Normal NEGATIVE [facility] Comment on above: Performed By: #### EVARISTO BOWERS PREGU #### [facility] [address] [place] [address] Dr. Hebert Noyola Clarity (U) CLEAR Normal CLEAR [facility] Comment on above: Performed By: #### EVARISTO BOWERS PREGU #### [facility] [address] [place] [address] Dr. Hebert Noyola Color (U) LT. YELLOW Normal YELLOW [facility] Comment on above: Performed By: #### EVARISTO BOWERS PREGU #### [facility] [address] [place] [address] Dr. Hebert MEDLEY A micrscopic examination will be performed if indicated. Normal [facility] Comment on above: Performed By: #### EVARISTO BOWERS PREGU #### [facility] [address] [address] [address] Hebert Noyola Glucose Ql (U) Negative Normal NEGATIVE [facility] Comment on above: Performed By: #### EVARISTO BOWERS, PREGU #### [facility] [address] [place] [address] Dr. Hebert Noyola Hemoglobin Ql (U) TRACE-INTACT Abnormal NEGATIVE [facility] Comment on above: Performed By: #### EVARISTO BOWERS, PREGU #### [facility] [address] [place] [address] Dr. Hebert Noyola Ketones Ql (U) Negative Normal NEGATIVE [facility] Comment on above: Performed By: #### EVARISTO BOWERS, PREGU #### [facility] [address] [place] [address] Dr. Hebert Noyola LEUKOCYTES Negative Normal NEGATIVE [facility] Comment on above: Performed By: #### EVARISTO BOWERS PREGU #### [facility] [address] [place] [address] Dr. Hebert Noyola Nitrite Ql (U) Negative Normal NEGATIVE [facility] Comment on above: Performed By: #### EVARISTO BOWERS PREGU #### [facility] [address] [place] [address] Dr. Hebert Noyola pH (U) 7.0 [pH] Normal 5-9 [facility] Comment on above: Performed By: #### EVARISTO BOWERS PREGU #### [facility] [address] [place] [address] Dr. Hebert Noyola SPEC GRAVITY 1.015 Normal 1.005-<=1.025 [facility] Comment on above: Performed By: #### EVARISTO BOWERS PREGU #### [facility] [address] [place] [address] Dr. Hebert Noyola UA PROTEIN Negative Normal NEGATIVE/ TRACE [facility] Comment on above: Performed By: #### EVARISTO BOWERS, PREGU #### [facility] [address] [place] [address] Dr. Hebert Noyola UR MICRO IND INDICATED Normal [facility] Comment on above: Performed By: #### EVARISTO BOWERS, PREGU #### [facility] [address] [address] [address] Hebert Noyola Urobilinogen Qn (U) 0.2 {Maddy'U}/dL Normal 0.2 - 1.0 [facility] Comment on above: Performed By: #### EVARISTO BOWERS, PREGU #### [facility] [address] [place] [address] [address] Hebert Noyola URon 10-04-2022 , QUAL Negative Normal NEGATIVE [facility] Comment on above: Performed By: #### EVARISTO BOWERS, PREGU #### [facility] [address] [place] [address] Dr. Hebert Noyola URINE MICROSCOPIC ONLYon BACTERIA NONE SEEN Normal NONE SEEN The [facility] Comment on above: Performed By: #### EVARISTO BOWERS, PREGU #### [facility] [address] [place] [address] [address] Hebert Noyola Bacteria identified Cx Nom (U) NOT INDICATED Normal [facility] Comment on above: Performed By: #### EVARISTO BOWERS, PREGU #### [facility] [address] [place] [address] Dr. Hebert Noyola CAST NONE SEEN Normal NONE SEEN The [facility] Comment on above: Performed By: #### EVARISTO BOWERS, PREGU #### [facility] [address] [place] [address] [address] Hebert Noyola Crystals LM Nom (Urine sed) NONE SEEN Normal NONE SEEN [facility] Comment on above: Performed By: #### EVARISTO BOWERS, PREGU #### [facility] [address] [place] [address] Dr. Hebert Noyola Epithelial cells LM Ql (Urine sed) FEW Abnormal NONE SEEN /RARE [facility] Comment on above: Performed By: #### EVARISTO BOWERS, PREGU #### [facility] [address] [place] [address] [address] Hebert Noyola MUCOUS NONE SEEN Normal NONE SEEN [facility] Comment on above: Performed By: #### EVARISTO BOWERS PREGU #### [facility] [address] [place] [address] Dr. Hebert Noyola RBC 0-2 Normal 0-2 [facility] Comment on above: Performed By: #### EVARISTO BOWERS PREGU #### [facility] [address] [place] [address] [address] Hebert Noyola WBC NONE SEEN Normal NONE SEEN The [facility] Comment on above: Performed By: #### EVARISTO BOWERS PREGU #### [facility] [address] [place] [address] Dr. Hebert Noyola WET PREPon 10-04-2022 CLUE CELLS NONE SEEN Normal NONE SEEN The [facility] Comment on above: Performed By: #### W P #### [facility] [address] [place] [address] Dr. Hebert Noyola FUNGAL ELEMENTS NONE SEEN Normal NONE SEEN [facility] Comment on above: Performed By: #### W P #### [facility] [address] [place] [address] Dr. Hebert Noyola RBC -WET PREP FEW Abnormal NONE SEEN [facility] Comment on above: Performed By: #### W P #### [facility] [address] [place] [address] [address] Hebert Noyola TRICHOMONAS NONE SEEN Normal NONE SEEN [facility] Comment on above: Performed By: #### W P #### [facility] [address] [place] [address] Dr. Hebert Noyola WBC- WET PREP FEW Abnormal NONE SEEN [facility] Comment on above: Performed By: #### W P #### [facility] [address] [place] [address] Dr. Hebert Noyola WET PREP BACTERIA FEW Abnormal NONE SEEN The [facility] Comment on above: Performed By: #### W P #### [facility] [address] [place] [address] Dr. Hebert Noyola Physician Orderon 02-14-2021 Physician Order [id number] .00CD:127 Normal [facility] Coding Summary.on 09-02-2020 Coding Summary. CODING DATE: 09/01/2020 FINAL [facility] STATUS: Home (Routine DC) PAYOR: [place] ADMIT DX: REASON FOR VISIT DX: Z11.51 [...] Saved: 09/01/2020 10:25 pm Normal [facility] PAP [id number] 08-30-2020 Cytology report Cyto stain Doc (Cvx/Vag) Note Invalid Interpretation Code [facility] Comment on above: Result Comment: TEST S RESULT FLAG UNITS REF RANGE LAB Clinician Provided Cytology Information Source.............Endocervix LMP / Prev Treat...LXF=[id number] No. of containers..01 ThinPrep Vial DIAGNOSIS: 01 NEGATIVE FOR INTRAEPITHELIAL LESION OR MALIGNANCY. THIS SPECIMEN WAS RESCREENED PART OF OUR DAIRY TECHNOLOGIST PROGRAM. 01 Satisfactory for evaluation. No endocervical component is identified. 01 Mainor Batres, Lubrication Equipment Servicer (ASCP) 01 Kristan Perez, Supervisory Lubrication Equipment Servicer (ASCP) 01 Note 01 The Pap smear [...] <-Panic Low,>-Panic High,A-Abnormal,AA-Critical Abnormal Performed at: [address] [id number] Amy Shelton MD, Performed By: #### 1 [id number] #### [facility] [address] [place] [address] HPV 16+18+31+33+35+39+ 45+51+52+56+58+59+ 66+68 DNA Probe+sig amp Ql (Cvx) Negative Invalid Interpretation Code Negative [facility] Comment on above: Result Comment: This nucleic acid amplification test detects fourteen high-risk HPV types (16,18,31,33,35,39,45,51,52,56,58,59,66,68) without differentiation. Performed at: [facility] [id number] MD Cat Reyes Performed at: =[address] [id number] MD Cat Reyes Performed By: #### 1 [id number] #### [facility] [address] [place] [address] PAP [id number] 08-23-2020 Collection Technique BRUSH-SPATULA Normal [facility] Comment on above: Performed By: #### 1 [id number] #### [facility] [address] [place] [address] Gynecological Body Site ENDOCERVIX Normal [facility] Comment on above: Performed By: #### 1 [id number] #### [facility] [address] [place] [address] LMP or Menopause Date [id number] Invalid Interpretation Code [facility] Comment on above: Performed By: #### 1 [id number] #### [facility] [address] [place] [address] Previous Cytology Negative Normal [facility] Comment on above: Performed By: #### 1 [id number] #### [facility] [address] [place] [address] Previous Treatment NONE Normal [facility] Comment on above: Performed By: #### 1 [id number] #### [facility] [address] [place] [address] Physician Orderon 08-23-2020 Physician Order [id number]:127 Normal [facility] Coding Summary.on 08-10-2020 Coding Summary. CODING DATE: 08/10/2020 FINAL [facility] STATUS: Home (Routine DC) PAYOR: Commercial [...] Saved: 08/10/2020 05:40 pm Normal [facility] SARS-CoV-2, NAAon 08-09-2020 SARS-CoV-2 (COVID-19) RNA TREASURE+probe Ql (Resp) Detected Abnormal Not Detected [facility] Comment on above: Result Comment: This nucleic acid amplification test was developed and its performance characteristics determined by [employer]. Nucleic acid amplification tests include RT-PCR and [...] detected) result in this assay. Performed at: [employer] [id number] PhD Tae Lynne Performed By: #### S ARS-CoV-2, TREASURE #### [facility] [address] [place] [address] Physician Orderon 08-08-2020 Physician Order [id number]. 00CD:127 Normal [facility] Encounters Encounter Date Encounter Type [...] Facility:[facility]1 Payers Date Payer Category Payer Unknown [id number] 2.16.84 [id number] 1986 Unknown [id number] 2.16.84 [id number] 1986 Unknown [id number] 1986 Unknown [id number] 1986 Unknown [id number] 1986 Unknown [id number] [id number] 1986 Unknown [id number] 1959 Private Health Insurance [id number] Summary Purpose Family History No Family History Records FoundNo Family History Records FoundNo Family History Records Found Advance Directives No Advanced Directives Records FoundNo Advanced Directives Records FoundNo Advanced Directives Records Found Additional Source Comments INFORMATION SOURCE (unrecogn ized section and content) DATE CREATED AUTHOR 02/15/2021 [facility] DATE CREATED AUTHOR AUTHOR'S ORGANIZ ATION 10/18/2022 [facility] DATE CREATED AUTHOR AUTHOR'S ORGANIZ ATION 06/18/2023 [facility] FOR RECORDS PERTAINING TO PATIENTS WHO [...] BE BASED ON THE PRIMARY CLINICAL RECORDS. [facility] [employer] provides no warranty or guarantee of the accuracy or completeness of information in this document.
[2023-06-23] MEDS: 0.9 % SODIUM CHLORIDE 1,000 ML 125 ML IV ×2 (05:40→14:41)
[2023-06-23 06:28] LABS: Hematocrit 34.5 % (36.0-48.0); Mean Corpuscular HGB Conc 31.9 g/dL (29.9-35.2); Mean Corpuscular Hemoglobin 26.8 pg (26.7-34.0); Mean Corpuscular Volume 84.1 fL (81.0-99.0); Mean Platelet Volume 11.2 fL (9.5-13.5); Platelet Count 212 10^3/uL (150-450); White Blood Count 9.2 10^3/uL (4.0-11.0)
[2023-06-23 06:53] LABS: Amphetamine Screen Urine NEGATIVE (NEGATIVE); Barbiturates Screen Urine NEGATIVE (NEGATIVE); Benzodiazepines Screen Urine NEGATIVE (NEGATIVE); Cannabinoid Screen Urine NEGATIVE (NEGATIVE); Cocaine Screen Urine NEGATIVE (NEGATIVE); Methadone Screen Urine NEGATIVE (NEGATIVE); Methamphetamines Screen Urine NEGATIVE (NEGATIVE); Opiate Screen Urine NEGATIVE (NEGATIVE); Oxycodone Screen Urine NEGATIVE (NEGATIVE); Phencyclidine Screen Urine NEGATIVE (NEGATIVE); Tricyclic Antidepressant Urine NEGATIVE (NEGATIVE)
[2023-06-23 06:54] LABS: Buprenorphine Screen Urine NEGATIVE (NEGATIVE)
[2023-06-23] MEDS: OXYTOCIN/0.9 % SODIUM CHLORIDE 10 UNITS/500 ML PLAST..BAG 6 UNIT IV (07:19)
[2023-06-23] MEDS: ONDANSETRON PF 4 MG/2 ML VIAL IV (07:29)
[2023-06-23] MEDS: LABETALOL HCL 200 MG TABLET PO ×3 (08:00→21:40)
[2023-06-23] MEDS: SERTRALINE HCL 100 MG TABLET PO (08:00)
[2023-06-23] MEDS: LIDOCAINE HCL 2% PF 100 MG/5 ML VIAL INJ (14:45)
[2023-06-23] MEDS: ROPIVACAINE HCL/PF 400 MG/200 ML PREMIX 6 MG EPIDURAL (15:24)
[2023-06-23] MEDS: FENTANYL CITRATE/PF 100 MCG/2 ML VIAL EPIDURAL (15:25)
[2023-06-23] MEDS: LIDOCAINE VISCOUS 2% 15 ML SOLUTION 5 ML TOPICAL (15:26)
--- NOTE | 2023-06-23 18:01 | PM.OBPRCVD ---
Procedure Intrapartal events: None Induction method: per pitocin protocol Delivery augmentation: rupture of membranes and pitocin Delivery monitor: external FHT and external uterine Route of delivery: Episiotomy Description: right mediolateral Laceration description: periurethral - 2nd degree Delivery repair: Vicryl Estimated blood loss (mL): 350 Anesthesia type: Epidural Disposition: floor Delivery date: 06/23/23 Gender: female presentation: vertex Placental delivery description: Spontaneous cord description: 3 Vessels
[2023-06-23] MEDS: OXYTOCIN/0.9 % SODIUM CHLORIDE 20 UNITS/1,000 ML PLAST..BAG 125 UNIT IV (18:05)
[2023-06-24] MEDS: BENZOCAINE/MENTHOL 85 GRAM SPRAY BOTTLE 1 APPLIC TOPICAL (00:24)
[2023-06-24] MEDS: GLYCERIN/WITCH HAZEL PADS 1 PAD TOPICAL (00:24)
[2023-06-24 00:29] VITALS: BP 150/86; PULSE 95
[2023-06-24 01:18] VITALS: BP 137/82; PULSE 85
[2023-06-24 06:09] LABS: Basophils Percent Auto 0.2 % (0.2-2.0); Eosinophils Percent Auto 0.1 % (0.9-7.0); Hematocrit 30.7 % (36.0-48.0); Hemoglobin 9.8 g/dL (12.0-16.0); Immature Granulocytes Abs Auto 0.08 10^3/uL (0.00-0.03); Immature Granulocytes Pct Auto 0.6 % (0.0-0.5); Lymphocytes Absolute Auto 1.2 10^3/uL (1.2-3.8); Mean Corpuscular HGB Conc 31.9 g/dL (29.9-35.2); Mean Corpuscular Hemoglobin 26.7 pg (26.7-34.0); Mean Corpuscular Volume 83.7 fL (81.0-99.0); Mean Platelet Volume 10.7 fL (9.5-13.5); Monocytes Absolute Auto 0.9 10^3/uL (0.3-0.8); Monocytes Percent Auto 7.1 % (1.7-12.0); Neutrophils Absolute Auto 10.6 10^3/uL (1.4-6.5); Platelet Count 171 10^3/uL (150-450); Red Blood Count 3.67 10^6/uL (4.20-5.40); Red Cell Distribution Width 13.2 % (11.0-15.0); White Blood Count 12.8 10^3/uL (4.0-11.0)
[2023-06-24 07:46] VITALS: BP 165/91; PULSE 82
[2023-06-24 08:00] VITALS: RESP 16; TEMP 37.1
--- NOTE | 2023-06-24 08:15 | PM.OBPN ---
OB - PN: Subj Subjective Patient comments: no complaints and tolerating diet Exam Constitutional Vital Signs, click to edit/add: Last Vital Signs Temp 98.2 F 06/23/23 12:00 Pulse 82 06/24/23 07:46 Resp 16 06/23/23 12:00 BP 165/91 H 06/24/23 07:46 Common normals: no apparent distress and oriented x3 Eye Common normals: PERRL and EOMs intact bilaterally Neck & C-Spine Common normals: full ROM and no lymphadenopathy Lymph Lymphatic: no lymphadenopathy noted Chest Common normals: inspection of chest normal Respiratory Common normals: normal respiratory effort and clear to auscultation bilaterally Cardio Common normals: regular rate and regular rhythm Rate: regular rate Rhythm: regular rhythm GI Common normals: Normal to inspection, nondistended, normoactive bowel sounds present Common normals: no CVA tenderness Back & Pelvis Thoracic spine/upper back: normal to inspection Extremity Common normals: normal to inspection Neuro Common normals: oriented x3 and moves all extremities Sensorium/orientation: awake, alert, oriented to person, oriented to place and oriented to time Psych Common normals: mental status grossly normal, thought process normal and cooperative Results Labs Labs: Short CBC 06/24/23 Range/Units 05:59 WBC 12.8 H (4.0-11.0) 10^3/uL Hgb 9.8 L (12.0-16.0) g/dL Hct 30.7 L (36.0-48.0) % Plt Count 171 (150-450) 10^3/uL OB - PN: A/P Plan - Vaginal Delivery Plan: routine care Time Spent with Patient Time: Total time spent is greater than 50% in coordination of care (as documented) at patient's floor/unit and/or counseling patient: Total time spent with greater than 50% in coordination of care (as documented) at patient's floor/unit and/or counseling patient: less than 15 minutes
[2023-06-24] MEDS: LABETALOL HCL 200 MG TABLET PO ×2 (08:40→21:25)
[2023-06-24] MEDS: SERTRALINE HCL 100 MG TABLET PO (09:00)
[2023-06-24] MEDS: DOCUSATE SODIUM 100 MG CAPSULE PO ×2 (11:20→21:24)
[2023-06-24] MEDS: IBUPROFEN 600 MG TABLET PO (11:20)
[2023-06-24 16:08] VITALS: BP 131/69; PULSE 86
[2023-06-24 21:29] VITALS: BP 145/91; BP 149/84; PULSE 86; PULSE 88
[2023-06-25] VITALS (9 sets, daily range): BP systolic 143–155; BP diastolic 76–91; PULSE 80–95; RESP 16–18; TEMP 36.7–36.8
--- NOTE | 2023-06-25 08:03 | PM.OBPN ---
OB - PN: Subj Subjective Patient comments: no complaints and pain well controlled [place] status: doing well Exam Constitutional Vital Signs, click to edit/add: Last Vital Signs Temp 98.2 F 06/25/23 00:06 Pulse 84 06/25/23 00:06 Resp 16 06/25/23 00:06 BP 143/76 H 06/25/23 00:06 O2 Del Method Room Air 06/25/23 00:06 Documenting provider has reviewed patient's vital signs: yes Common normals: no apparent distress Respiratory Common normals: normal respiratory effort and clear to auscultation bilaterally Cardio Common normals: regular rate and regular rhythm GI Common normals: Normal to inspection, nondistended, normoactive bowel sounds present Extremity Common normals: no clubbing, cyanosis or edema and no calf tenderness OB - PN: A/P Plan - Vaginal Delivery day: 2 Plan: routine care, discharge home and follow up 6 weeks Time Spent with Patient Time: Total time spent is greater than 50% in coordination of care (as documented) at patient's floor/unit and/or counseling patient: Total time spent with greater than 50% in coordination of care (as documented) at patient's floor/unit and/or counseling patient: less than 15 minutes
[2023-06-25] MEDS: LABETALOL HCL 200 MG TABLET PO ×3 (08:34→22:48)
[2023-06-25] MEDS: DOCUSATE SODIUM 100 MG CAPSULE PO ×2 (08:34→22:48)
[2023-06-25] MEDS: IBUPROFEN 600 MG TABLET PO (15:01)
--- NOTE | 2023-06-25 17:59 | PC.NURSE ---
1800 Dr. Higuera aware of BP 152/80, no orders aware.
== END 2023-06-25 23:30 | disposition home or self-care (01) | DRG 806 ==
PROVIDERS: Admitting Provider Obstetrics & Gynecology; Visit Provider Obstetrics & Gynecology
DX: O10.92 Unspecified pre-existing hypertension complicating childbirth (principal); O41.03X0 Oligohydramnios, third trimester, not applicable or unspecified; Z37.0 Single live birth; O99.344 Other mental disorders complicating childbirth; F41.9 Anxiety disorder, unspecified; O70.1 Second degree perineal laceration during delivery; Z3A.38 38 weeks gestation of pregnancy
CPT/HCPCS: 36415; 59050; 59410; 80307; 85025; 85027; 86850; 86900; 86901; 88307; 96374; 96375; 96376; J2405; J2795; J3010

== ENCOUNTER 2023-06-27 08:01 | Outpatient (OUT) | payer OTHER, SELFPAY ==
--- OUTSIDE RECORDS SUMMARY | 2023-06-27 08:04 | XMS_ITS | CCD ---
Author Name Unknown Address [address] [place] [address] Organization [facility] Care Team Providers Care Beef Grader Name Role Phone PAY ., DR KING [...] 30 to 65on 10-17-2022 . . Normal [facility] Comment on above: Result Comment: Perf ormed at: WB Performed By: #### [id number] #### [facility] [address], [place] [address] Dr. Hebert Noyola Age Gdln ACOG Testing 30-65 Normal [facility] Comment on above: Performed By: #### [id number] #### [facility] [address] [address] [address] Hebert Noyola DIAGNOSIS: Comment Normal [facility] Comment on above: Result Comment: NEGA TIVE FOR INTRAEPITHELIAL LESION OR MALIGNANCY. Performed at: WB Performed By: #### [id number] #### [facility] [address] [place] [address] Dr. Hebert Noyola HPV Aptima Negative Normal Negative [facility] Comment on above: Result Comment: This nucleic acid amplification test detects fourteen high-risk HPV types (16,18,31,33,35,39,45,51,52,56,58,59,66,68) without differentiation. Performed at: =G Performed By: #### 4 [id number] #### [facility] [address] [place] [address] Dr. Hebert Noyola HPV Genotype Reflex Comment Normal [facility] Comment on above: Result Comment: Crit eria not met, HPV Genotype not performed. Performed at: WB Performed By: #### [id number] #### [facility] [address] [place] [address] Dr. Hebert Noyola Methodology: Comment Normal [facility] Comment on above: Result Comment: This liquid based ThinPrep(R) pap test was screened with the use of an image guided system. Performed at: WB Performed By: #### [id number] #### [facility] [address] [place] [address] Dr. Hebert Noyola Note: Comment Normal [facility] Comment on above: Result Comment: The Pap smear is a screening test designed to aid in the detection of premalignant and malignant conditions of the uterine cervix. It is not a diagnostic procedure and should not be used as the sole means of detecting cervical cancer. Both false-positive and false-negative reports do occur. . Performed at: WB Performed By: #### [id number] #### [facility] [address] [place] [address] Dr. Hebert Noyola Performed by: Comment Normal [facility] Comment on above: Result Comment: Elizabeth Batres, Hypo Splasher (ASCP) Performed at: WB Performed By: #### 4 [id number] #### [facility] [address] [place] [address] Dr. Hebert Noyola Specimen adequacy: Comment Normal [facility] Comment on above: Result Comment: Sati sfactory for evaluation. Endocervical and/or squamous metaplastic cells (endocervical component) are present. Performed at: WB Performed By: #### 4 [id number] #### [facility] [address] [place] [address] Dr. Hebert Noyola CHLAMYDIA/GONOCOCCUS TREASURE ( AB/URINE/PAPon 10-08-2022 Chlamydia trachomatis, TREASURE Negative Normal Negative [facility] Comment on above: Performed By: #### C T/NGNA #### [facility] [address] [place] [address] Dr. Hebert Noyola Neisseria gonorrhoeae, TREASUER Negative Normal Negative [facility] Comment on above: Performed By: #### C T/NGNA #### [facility] [address] [place] [address] Dr. Hebert Noyola ER URINE PROFILEon 3 Bilirubin Ql (U) Negative Normal NEGATIVE [facility] Comment on above: Performed By: #### EVARISTO BOWERS PREGU #### [facility] [address] [place] [address] Dr. Hebert Noyola Clarity (U) CLEAR Normal CLEAR [facility] Comment on above: Performed By: #### EVARISTO BOWERS PREGU #### [facility] [address] [place] [address] Dr. Hebert Noyola Color (U) LT. YELLOW Normal YELLOW [facility] Comment on above: Performed By: #### EVARISTO BOWERS PREGU #### [facility] [address] [place] [address] Dr. Hebert MEDLEY A micrscopic examination will be performed if indicated. Normal [facility] Comment on above: Performed By: #### EVARISTO BOWERS PREGU #### [facility] [address] [address] [address] Hebert Noyola Glucose Ql (U) Negative Normal NEGATIVE [facility] Comment on above: Performed By: #### EVARISTO BOWERS, PREGU #### [facility] [address] [place] [address] Dr. Hebert Noyola Hemoglobin Ql (U) TRACE-INTACT Abnormal NEGATIVE [facility] Comment on above: Performed By: #### EVARISTO BOWERS, PREGU #### [facility] [address] [place] [address] Dr. Hebert Noyola Ketones Ql (U) Negative Normal NEGATIVE [facility] Comment on above: Performed By: #### EVARISTO BOWERS, PREGU #### [facility] [address] [place] [address] Dr. Hebert Noyola LEUKOCYTES Negative Normal NEGATIVE [facility] Comment on above: Performed By: #### EVARISTO BOWERS PREGU #### [facility] [address] [place] [address] Dr. Hebert Noyola Nitrite Ql (U) Negative Normal NEGATIVE [facility] Comment on above: Performed By: #### EVARISTO BOWERS PREGU #### [facility] [address] [place] [address] Dr. Hebert Noyola pH (U) 7.0 [pH] Normal 5-9 [facility] Comment on above: Performed By: #### EVARISTO BOWERS PREGU #### [facility] [address] [place] [address] Dr. Hebert Noyola SPEC GRAVITY 1.015 Normal 1.005-<=1.025 [facility] Comment on above: Performed By: #### EVARISTO BOWERS PREGU #### [facility] [address] [place] [address] Dr. Hebert Noyola UA PROTEIN Negative Normal NEGATIVE/ TRACE [facility] Comment on above: Performed By: #### EVARISTO BOWERS, PREGU #### [facility] [address] [place] [address] Dr. Hebert Noyola UR MICRO IND INDICATED Normal [facility] Comment on above: Performed By: #### EVARISTO BOWERS, PREGU #### [facility] [address] [address] [address] Hebert Noyola Urobilinogen Qn (U) 0.2 {Maddy'U}/dL Normal 0.2 - 1.0 [facility] Comment on above: Performed By: #### EVARISTO BOWERS, PREGU #### [facility] [address] [address] [address] Hebert Noyola URon 10-04-2022 , QUAL Negative Normal NEGATIVE [facility] Comment on above: Performed By: #### EVARISTO BOWERS, PREGU #### [facility] [address] [place] [address] Dr. Hebert Noyola URINE MICROSCOPIC ONLYon BACTERIA NONE SEEN Normal NONE SEEN [facility] Comment on above: Performed By: #### EVARISTO BOWERS, PREGU #### [facility] [address] [address] [address] Hebert Noyola Bacteria identified Cx Nom (U) NOT INDICATED Normal [facility] Comment on above: Performed By: #### EVARISTO BOWERS, PREGU #### [facility] [address] [place] [address] Dr. Hebert Noyola CAST NONE SEEN Normal NONE SEEN [facility] Comment on above: Performed By: #### EVARISTO BOWERS, PREGU #### [facility] [address] [address] [address] Hebert Noyola Crystals LM Nom (Urine sed) NONE SEEN Normal NONE SEEN [facility] Comment on above: Performed By: #### EVARISTO BOWERS, PREGU #### [facility] [address] [place] [address] Dr. Hebert Noyola Epithelial cells LM Ql (Urine sed) FEW Abnormal NONE SEEN /RARE [facility] Comment on above: Performed By: #### EVARISTO BOWERS, PREGU #### [facility] [address] [address] [address] Hebert Noyola MUCOUS NONE SEEN Normal NONE SEEN [facility] Comment on above: Performed By: #### EVARISTO BOWERS PREGU #### [facility] [address] [place] [address] Dr. Hebert Noyola RBC 0-2 Normal 0-2 [facility] Comment on above: Performed By: #### EVARISTO BOWERS PREGU #### [facility] [address] [address] [address] Hebert Noyola WBC NONE SEEN Normal NONE SEEN [facility] Comment on above: Performed By: #### EVARISTO BOWERS PREGU #### [facility] [address] [place] [address] Dr. Hebert Noyola WET PREPon 10-04-2022 CLUE CELLS NONE SEEN Normal NONE SEEN [facility] Comment on above: Performed By: #### W P #### [facility] [address] [place] [address] Dr. Hebert Noyola FUNGAL ELEMENTS NONE SEEN Normal NONE SEEN [facility] Comment on above: Performed By: #### W P #### [facility] [address] [place] [address] Dr. Hebert Noyola RBC -WET PREP FEW Abnormal NONE SEEN [facility] Comment on above: Performed By: #### W P #### [facility] [address] [address] [address] Hebert Noyola TRICHOMONAS NONE SEEN Normal NONE SEEN [facility] Comment on above: Performed By: #### W P #### [facility] [address] [place] [address] Dr. Hebert Noyola WBC- WET PREP FEW Abnormal NONE SEEN [facility] Comment on above: Performed By: #### W P #### [facility] [address] [place] [address] Dr. Hebert Noyola WET PREP BACTERIA FEW Abnormal NONE SEEN [facility] Comment on above: Performed By: #### W P #### [facility] [address] [place] [address] Dr. Hebert Noyola Physician Orderon 02-14-2021 Physician Order [id number] .00CD:127 Normal [facility] Coding Summary.on 09-02-2020 Coding Summary. CODING DATE: 09/01/2020 FINAL [facility] STATUS: Home (Routine DC) PAYOR: [place] ADMIT DX: REASON FOR VISIT DX: Z11.51 [...] Bautista Date Saved: 09/01/2020 10:25 pm Normal [facility] PAP [id number] 08-30-2020 Cytology report Cyto stain Doc (Cvx/Vag) Note Invalid Interpretation Code [facility] Comment on above: Result Comment: TEST S RESULT FLAG UNITS REF RANGE LAB Clinician Provided Cytology Information Source.............Endocervix LMP / Prev Treat...JZC=[id number] No. of containers..01 ThinPrep Vial DIAGNOSIS: 01 NEGATIVE FOR INTRAEPITHELIAL LESION OR MALIGNANCY. THIS SPECIMEN WAS RESCREENED PART OF OUR [employer] PROGRAM. 01 Satisfactory for evaluation. No endocervical component is identified. 01 Mainor Batres, Hypo Splasher (ASCP) 01 Kristan Perez, Supervisory Hypo Splasher (ASCP) 01 Note 01 The Pap smear [...] <-Panic Low,>-Panic High,A-Abnormal,AA-Critical Abnormal Performed at: [address] [id number] Amy Shelton MD, Performed By: #### 1 [id number] #### [facility] [address] [place] [address] HPV 16+18+31+33+35+39+ 45+51+52+56+58+59+ 66+68 DNA Probe+sig amp Ql (Cvx) Negative Invalid Interpretation Code Negative [facility] Comment on above: Result Comment: This nucleic acid amplification test detects fourteen high-risk HPV types (16,18,31,33,35,39,45,51,52,56,58,59,66,68) without differentiation. Performed at: [facility] [id number] MD Cat Reyes Performed at: =[address] [id number] MD Cat Reyes Performed By: #### 1 [id number] #### [facility] [address] [place] [address] PAP [id number] 08-23-2020 Collection Technique BRUSH-SPATULA Normal [facility] Comment on above: Performed By: #### 1 [id number] #### [facility] [address] [place] [address] Gynecological Body Site ENDOCERVIX Normal [facility] Comment on above: Performed By: #### 1 [id number] #### [facility] [address] [place] [address] LMP or Menopause Date [id number] Invalid Interpretation Code [facility] Comment on above: Performed By: #### 1 [id number] #### [facility] [address] [place] [address] Previous Cytology Negative Normal [facility] Comment on above: Performed By: #### 1 [id number] #### [facility] [address] [place] [address] Previous Treatment NONE Normal [facility] Comment on above: Performed By: #### 1 [id number] #### [facility] [address] [place] [address] Physician Orderon 08-23-2020 Physician Order [id number] 1.00CD:127 Normal [facility] Coding Summary.on 08-10-2020 Coding Summary. CODING DATE: 08/10/2020 FINAL [facility] STATUS: Home (Routine DC) PAYOR: Commercial [...] CphT Date Saved: 08/10/2020 05:40 pm Normal [facility] SARS-CoV-2, NAAon 08-09-2020 SARS-CoV-2 (COVID-19) RNA TREASURE+probe Ql (Resp) Detected Abnormal Not Detected [facility] Comment on above: Result Comment: This nucleic acid amplification test was developed and its performance characteristics determined by [facility]. Nucleic acid amplification tests include RT-PCR and [...] detected) result in this assay. Performed at: [facility] [id number] PhD Tae Lynne Performed By: #### S ARS-CoV-2, TREASURE #### [facility] [address] [place] [address] Physician Orderon 08-08-2020 Physician Order [id number]. 00CD:127 Normal [facility] Encounters Encounter Date Encounter Type Care [...] Facility:[facility] Payers Date Payer Category Payer Unknown [id number] 2.16.84 [id number] 1986 Unknown [id number] 2.16.84 [id number] 1986 Unknown [id number] 1986 Unknown [id number] 1986 Unknown [id number] [id number] .[id number] 1986 Unknown [id number] [id number] .[id number] 1986 Unknown [id number]. [id number] 1959 Private Health Insurance [id number] Summary Purpose Family History No Family History Records FoundNo Family History Records FoundNo Family History Records Found Advance Directives No Advanced Directives Records FoundNo Advanced Directives Records FoundNo Advanced Directives Records Found Additional Source Comments INFORMATION SOURCE (unrecogn ized section and content) DATE CREATED AUTHOR 02/15/[address] [facility] DATE CREATED AUTHOR AUTHOR'S ORGANIZ ATION 10/18/2022 [facility] DATE CREATED AUTHOR AUTHOR'S ORGANIZ ATION 06/18/2023 [facility] FOR RECORDS PERTAINING TO PATIENTS WHO ARE [...] BE BASED ON THE PRIMARY CLINICAL RECORDS. [facility] [employer] provides no warranty or guarantee of the accuracy or completeness of information in this document.
[2023-06-27 16:59] VITALS: BP 158/82; PULSE 92; RESP 18; TEMP 36.7; O2SAT 98
--- NOTE | 2023-06-27 17:44 | PC.NURSE ---
Rosales Blandon and 4 day old daughter Teresa arrive for follow up visit. Parents state doing well, both tired as they set alarms for every 2 hours for feedings. Jamia denies complaints at this time. Just took her dose of Labetalol in car coming for appointment. BP of 158/82 Is priti normal for her. Pt has chronic HTN. Assessment WNL, milk coming in breasts full and firm. Axilla full and distended also. Reviewed breast care and use of cabbage in axilla for relief. 4 day old Teresa, jaundiced in color easy respirations noted. VSS and assessment WNL except transcutaneous bili 15.5, reflexive serum bili drawn and to lab per Dr Brumfield's orders. Baby to breast and deep latch achieved on 3rd attempt on left side. Audible swallows noted feeds well 12 mins. To left side and in football position latched well on second effort. Of note: small mouth on NB with large, longer nipples for mom adds to discomfort with latch. Jamia aware of deep vs shallow latch. Removes baby and re-latches as needed. Active nursing 12 minutes on second breast, releases latch and sleeps. Parents made aware of bili level for NB and need for repeat 06/28/2023 at 1pm. Parents verbalize understanding and have no further questions regarding elevated bili. Aware to feed frequently, and goal is for increased stools to assist in lowering bili level. Family leaves ambulatory from hospital cafeteria (had dinner waiting for results). Plan to return for follow up support 07/02/2023.
== END 2023-06-27 17:50 | disposition home or self-care (01) ==
LOC: FBCO 08:02
PROVIDERS: Visit Provider Obstetrics & Gynecology
DX: Z39.2 Encounter for routine postpartum follow-up (principal)

== ENCOUNTER 2023-07-02 08:16 | Outpatient (OUT) | payer OTHER, SELFPAY ==
--- OUTSIDE RECORDS SUMMARY | 2023-07-02 08:33 | XMS_ITS | CCD ---
Author Name Unknown Address [address] [place] [address] Organization [facility] Care Team Providers Care Director Of Quality Control Name Role Phone PAY ., DR KING Attending Unavailable PAY ., DR KING Consulting Unavailable PAY ., DR KING Admitting Unavailable BRITTANY ., DR PERRY Attending Unavailable BRITTANY ., DR PERRY Consulting Unavailable BRITTANY ., DR PERRY Admitting Unavailable KRYSTALDOMINICK Attending Unavailable BRITTANY, VICKY Attending Unavailable KRYSTAL, DOMINICK [...] 30 to 65on 10-17-2022 . . Normal [facility] Comment on above: Result Comment: Perf ormed at: WB Performed By: #### [id number] #### [facility] [address], [place] [address] Dr. Hebert Noyola Age Gdln ACOG Testing 30-65 [facility] Comment on above: Performed By: #### 4 [id number] #### [facility] [address] [address] [address] Hebert Noyola DIAGNOSIS: Comment Normal [facility] Comment on above: Result Comment: NEGA TIVE FOR INTRAEPITHELIAL LESION OR MALIGNANCY. Performed at: WB Performed By: #### 4 [id number] #### [facility] [address] [address] [address] Hebert Noyola HPV Aptima Negative Normal Negative [facility] Comment on above: Result Comment: This nucleic acid amplification test detects fourteen high-risk HPV types (16,18,31,33,35,39,45,51,52,56,58,59,66,68) without differentiation. Performed at: =G Performed By: #### 4 [id number] #### [facility] [address] [place] [address] Dr. Hebert Noyola HPV Genotype Reflex Comment Normal [facility] Comment on above: Result Comment: Crit eria not met, HPV Genotype not performed. Performed at: WB Performed By: #### 4 [id number] #### [facility] [address] [place] [address] Dr. Hebert Noyola Methodology: Comment Normal [facility] Comment on above: Result Comment: This liquid based ThinPrep(R) pap test was screened with the use of an image guided system. Performed at: WB Performed By: #### 4 [id number] #### [facility] [address] [place] [address] Dr. Hebert Noyola Note: Comment Normal [facility] Comment on above: Result Comment: The Pap smear is a screening test designed to aid in the detection of premalignant and malignant conditions of the uterine cervix. It is not a diagnostic procedure and should not be used as the sole means of detecting cervical cancer. Both false-positive and false-negative reports do occur. . Performed at: WB Performed By: #### 4 [id number] #### [facility] [address] [place] [address] Dr. Hebert Noyola Performed by: Comment Normal [facility] Comment on above: Result Comment: Elizabeth Batres, Nurse Tech (ASCP) Performed at: WB Performed By: #### 4 [id number] #### [facility] [address] [place] [address] Dr. Hebert Noyola Specimen adequacy: Comment Normal [facility] Comment on above: Result Comment: Sati sfactory for evaluation. Endocervical and/or squamous metaplastic cells (endocervical component) are present. Performed at: WB Performed By: #### 4 [id number] #### [facility] [address] [place] [address] Dr. Hebert Noyola CHLAMYDIA/GONOCOCCUS TREASURE ( AB/URINE/PAPon 10-08-2022 Chlamydia trachomatis, TREASURE Negative Normal Negative [facility] Comment on above: Performed By: #### C T/NGNA #### [facility] [address] [place] [address] Dr. Hebert Noyola Neisseria gonorrhoeae, TREASURE Negative Normal Negative [facility] Comment on above: Performed By: #### C T/NGNA #### [facility] [address] [place] [address] Dr. Hebert Noyola ER URINE PROFILEon 3 Bilirubin Ql (U) Negative Normal NEGATIVE [facility] Comment on above: Performed By: #### EVARISTO BOWERS PREGU #### [facility] [address] [place] [address] Dr. Hebert Noyola Clarity (U) CLEAR Normal CLEAR [facility] Comment on above: Performed By: #### EVARISTO BOWERS PREGU #### [facility] [address] [place] [address] Dr. Hebert Noyola Color (U) LT. YELLOW Normal YELLOW [facility] Comment on above: Performed By: #### EVARISTO BOWERS PREGU #### [facility] [address] [place] [address] Dr. Hebert MEDLEY A micrscopic examination will be performed if indicated. Normal [facility] Comment on above: Performed By: #### EVARISTO BOWERS PREGU #### [facility] [address] [address] [address] Hebert Noyola Glucose Ql (U) Negative Normal NEGATIVE [facility] Comment on above: Performed By: #### EVARISTO BOWERS, PREGU #### [facility] [address] [address] [address] Hebert Noyola Hemoglobin Ql (U) TRACE-INTACT Abnormal NEGATIVE [facility] Comment on above: Performed By: #### ANGEL BOWERSICDELILAH, PREGU #### [facility] [address] [address] [address] Hebert Noyola Ketones Ql (U) Negative Normal NEGATIVE [facility] Comment on above: Performed By: #### EVARISTO BOWERS, PREGU #### [facility] [address] [place] [address] Dr. Hebert Noyola LEUKOCYTES Negative Normal NEGATIVE [facility] Comment on above: Performed By: #### EVARISTO BOWERS, PREGU #### [facility] [address] [address] [address] Hebert Noyola Nitrite Ql (U) Negative Normal NEGATIVE [facility] Comment on above: Performed By: #### EVARISTO BOWERS, PREGU #### [facility] [address] [place] [address] Dr. Hebert Noyola pH (U) 7.0 [pH] Normal 5-9 [facility] Comment on above: Performed By: #### EVARISTO BOWERS, PREGU #### [facility] [address] [address] [address] Hebert Noyola SPEC GRAVITY 1.015 Normal 1.005-<=1.025 [facility] Comment on above: Performed By: #### EVARISTO BOWERS, PREGU #### [facility] [address] [place] [address] Dr. Hebert Noyola UA PROTEIN Negative Normal NEGATIVE/ TRACE [facility] Comment on above: Performed By: #### EVARISTO BOWERS, PREGU #### [facility] [address] [place] [address] Dr. Hebert Noyola UR MICRO IND INDICATED Normal [facility] Comment on above: Performed By: #### EVARISTO BOWERS, PREGU #### [facility] [address] [place] [address] Dr. Hebert Noyola Urobilinogen Qn (U) 0.2 {Maddy'U}/dL Normal 0.2 - 1.0 [facility] Comment on above: Performed By: #### EVARISTO BOWERS, PREGU #### [facility] [address] [address] [address] Hebert Noyola URon 10-04-2022 , QUAL Negative Normal NEGATIVE [facility] Comment on above: Performed By: #### EVARISTO BOWERS, PREGU #### [facility] [address] [place] [address] Dr. Hebert Noyola URINE MICROSCOPIC ONLYon BACTERIA NONE SEEN Normal NONE SEEN [facility] Comment on above: Performed By: #### EVARISTO BOWERS, PREGU #### [facility] [address] [place] [address] Dr. Hebert Noyola Bacteria identified Cx Nom (U) NOT INDICATED Normal [facility] Comment on above: Performed By: #### EVARISTO BOWERS, PREGU #### [facility] [address] [place] [address] Dr. Hebert Noyola CAST NONE SEEN Normal NONE SEEN [facility] Comment on above: Performed By: #### EVARISTO BOWERS, PREGU #### [facility] [address] [address] [address] Hebert Noyola Crystals LM Nom (Urine sed) NONE SEEN Normal NONE SEEN [facility] Comment on above: Performed By: #### EVARISTO BOWERS, PREGU #### [facility] [address] [place] [address] Dr. Hebert Noyola Epithelial cells LM Ql (Urine sed) FEW Abnormal NONE SEEN /RARE [facility] Comment on above: Performed By: #### EVARISTO BOWERS, PREGU #### [facility] [address] [address] [address] Hebert Noyola MUCOUS NONE SEEN Normal NONE SEEN [facility] Comment on above: Performed By: #### EVARISTO BOWERS PREGU #### [facility] [address] [place] [address] Dr. Hebert Noyola RBC 0-2 Normal 0-2 [facility] Comment on above: Performed By: #### EVARISTO BOWERS PREGU #### [facility] [address] [place] [address] Dr. Hebert Noyola WBC NONE SEEN Normal NONE SEEN [facility] Comment on above: Performed By: #### EVARISTO BOWERS PREGU #### [facility] [address] [place] [address] Dr. Hebert Noyola WET PREPon 10-04-2022 CLUE CELLS NONE SEEN Normal NONE SEEN [facility] Comment on above: Performed By: #### W P #### [facility] [address] [place] [address] Dr. Hebert Noyola FUNGAL ELEMENTS NONE SEEN Normal NONE SEEN [facility] Comment on above: Performed By: #### W P #### [facility] [address] [place] [address] Dr. Hebert Noyola RBC -WET PREP FEW Abnormal NONE SEEN [facility] Comment on above: Performed By: #### W P #### [facility] [address] [place] [address] Dr. Hebert Noyola TRICHOMONAS NONE SEEN Normal NONE SEEN [facility] Comment on above: Performed By: #### W P #### [facility] [address] [place] [address] Dr. Hebert Noyola WBC- WET PREP FEW Abnormal NONE SEEN [facility] Comment on above: Performed By: #### W P #### [facility] [address] [place] [address] Dr. Hebert Noyola WET PREP BACTERIA FEW Abnormal NONE SEEN [facility] Comment on above: Performed By: #### W P #### [facility] [address] [place] [address] Dr. Hebert Noyola Physician Orderon 02-14-2021 Physician Order [id number] .[id number]:127 Normal [facility] Coding Summary.on 09-02-2020 Coding Summary. CODING DATE: 09/01/2020 FINAL [facility] STATUS: Home (Routine DC) PAYOR: [place] ADMIT DX: REASON FOR VISIT DX: Z11.51 [...] Bautista Date Saved: 09/01/2020 10:25 pm Normal [facility] PAP [id number] 08-30-2020 Cytology report Cyto stain Doc (Cvx/Vag) Note Invalid Interpretation Code [facility] Comment on above: Result Comment: TEST S RESULT FLAG UNITS REF RANGE LAB Clinician Provided Cytology Information Source.............Endocervix LMP / Prev Treat...[id number] No. of containers..01 ThinPrep Vial DIAGNOSIS: 01 NEGATIVE FOR INTRAEPITHELIAL LESION OR MALIGNANCY. THIS SPECIMEN WAS RESCREENED PART OF OUR SURGICAL SERVICES DIRECTOR PROGRAM. 01 Satisfactory for evaluation. No endocervical component is identified. 01 Mainor Batres, Nurse Tech (ASCP) Kristan Perez, Supervisory Nurse Tech (ASCP) 01 Note 01 The Pap smear [...] <-Panic Low,>-Panic High,A-Abnormal,AA-Critical Abnormal Performed at: [address] [id number] Amy Shelton MD, Performed By: #### 1 [id number] #### [facility] [address] [place] [address] HPV 16+18+31+33+35+39+ 45+51+52+56+58+59+ 66+68 DNA Probe+sig amp Ql (Cvx) Negative Invalid Interpretation Code Negative [facility] Comment on above: Result Comment: This nucleic acid amplification test detects fourteen high-risk HPV types (16,18,31,33,35,39,45,51,52,56,58,59,66,68) without differentiation. Performed at: [facility] [id number] MD Cat Reyes Performed at: =[address] [id number] MD Cat Reyes Performed By: #### 1 [id number] #### [facility] [address] [place] [address] PAP [id number] 08-23-2020 Collection Technique BRUSH-SPATULA Normal [facility] Comment on above: Performed By: #### 1 [id number] #### [facility] [address] [place] [address] Gynecological Body Site ENDOCERVIX Normal [facility] Comment on above: Performed By: #### 1 [id number] #### [facility] [address] [place] [address] LMP or Menopause Date [id number] Invalid Interpretation Code [facility] Comment on above: Performed By: #### 1 [id number] #### [facility] [address] [place] [address] Previous Cytology Negative Normal [facility] Comment on above: Performed By: #### 1 [id number] #### [facility] [address] [place] [address] Previous Treatment NONE Normal [facility] Comment on above: Performed By: #### 1 [id number] #### [facility] [address] [place] [address] Physician Orderon 08-23-2020 Physician Order [id number]:127 Normal [facility] Coding Summary.on 08-10-2020 Coding Summary. 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 Nucleic acid amplification tests include RT-PCR and [...] detected) result in this assay. Performed at: [facility] [id number] PhD Tae Lynne Performed By: #### S ARS-CoV-2, TREASURE #### [facility] [address] [place] [address] Physician Orderon 08-08-2020 Physician Order [id number]. 00CD:127 Normal [facility] Encounters Encounter Date Encounter Type Care [...] Facility:[facility] Payers Date Payer Category Payer Unknown [id number] 2.16.84 [id number] 1986 Unknown [id number] 2.16.84 [id number] 1986 Unknown [id number] 1986 Unknown [id number] 2.16.840 .[id number] 1986 Unknown [id number] 2.16.840 .[id number] 1986 Unknown [id number] 2.16.840 .[id number] 1986 Unknown [id number] 2.16.840. [id number] 1959 Private Health Insurance [id number] Summary Purpose Family History No Family History Records FoundNo Family History Records FoundNo Family History Records Found Advance Directives No Advanced Directives Records FoundNo Advanced Directives Records FoundNo Advanced Directives Records Found Additional Source Comments INFORMATION SOURCE (unrecogn ized section and content) DATE CREATED AUTHOR 02/15/2021 [facility] DATE CREATED AUTHOR AUTHOR'S ORGANIZ ATION 10/18/2022 [facility] DATE CREATED AUTHOR AUTHOR'S ORGANIZ ATION 06/18/2023 [facility] FOR RECORDS PERTAINING TO PATIENTS [...] BE BASED ON THE PRIMARY CLINICAL RECORDS. [facility] [employer] provides no warranty or guarantee of the accuracy or completeness of information in this document.
== END 2023-07-02 11:55 | disposition home or self-care (01) ==
LOC: FBCO 08:18
PROVIDERS: Visit Provider Obstetrics & Gynecology
DX: Z39.1 Encounter for care and examination of lactating mother (principal)
CPT/HCPCS: G0463

== ENCOUNTER 2023-07-07 08:05 | Outpatient (OUT) | payer OTHER, SELFPAY ==
--- OUTSIDE RECORDS SUMMARY | 2023-07-07 08:08 | XMS_ITS | CCD ---
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 [facility] Comment on above: Result Comment: Perf ormed at: WB Performed By: #### 4 [id number] #### [facility] [address], [place] [address] Dr. Hebert Noyola Age Gdln ACOG Testing 30-[address] [facility] Comment on above: Performed By: #### 4 [id number] #### [facility] [address] [place] [address] [address] Hebert Noyola DIAGNOSIS: Comment Normal [facility] Comment on above: Result Comment: NEGA TIVE FOR INTRAEPITHELIAL LESION OR MALIGNANCY. Performed at: WB Performed By: #### 4 [id number] #### [facility] [address] [address] [address] Hebert Noyola HPV Aptima Negative Normal Negative [facility] Comment on above: Result Comment: This nucleic acid amplification test detects fourteen high-risk HPV types (16,18,31,33,35,39,45,51,52,56,58,59,66,68) without differentiation. Performed at: =G Performed By: #### 4 [id number] #### [facility] [address] [place] [address] Dr. Hebert Noyola HPV Genotype Reflex Comment Normal [facility] Comment on above: Result Comment: Crit eria not met, HPV Genotype not performed. Performed at: WB Performed By: #### 4 [id number] #### [facility] [address] [place] [address] Dr. Hebert Noyola Methodology: Comment Normal [facility] Comment on above: Result Comment: This liquid based ThinPrep(R) pap test was screened with the use of an image guided system. Performed at: WB Performed By: #### 4 [id number] #### [facility] [address] [place] [address] Dr. Hebert Noyola Note: Comment Normal [facility] Comment on above: Result Comment: The Pap smear is a screening test designed to aid in the detection of premalignant and malignant conditions of the uterine cervix. It is not a diagnostic procedure and should not be used as the sole means of detecting cervical cancer. Both false-positive and false-negative reports do occur. . Performed at: WB Performed By: #### 4 [id number] #### [facility] [address] [place] [address] Dr. Hebert Noyola Performed by: Comment Normal [facility] Comment on above: Result Comment: Elizabeth Batrse, Job Placement Officer (ASCP) Performed at: WB Performed By: #### 4 [id number] #### [facility] [address] [place] [address] Dr. Hebert Noyola Specimen adequacy: Comment Normal [facility] Comment on above: Result Comment: Sati sfactory for evaluation. Endocervical and/or squamous metaplastic cells (endocervical component) are present. Performed at: WB Performed By: #### 4 [id number] #### [facility] [address] [place] [address] Dr. Hebert Noyola CHLAMYDIA/GONOCOCCUS TREASURE ( AB/URINE/PAPon 10-08-2022 Chlamydia trachomatis, TREASURE Negative Normal Negative [facility] Comment on above: Performed By: #### C T/NGNA #### [facility] [address] [place] [address] Dr. Hebert Noyola Neisseria gonorrhoeae, TREASURE Negative Normal Negative [facility] Comment on above: Performed By: #### C T/NGNA #### [facility] [address] [place] [address] Dr. Hebert Noyola ER URINE PROFILEon 3 Bilirubin Ql (U) Negative Normal NEGATIVE [facility] Comment on above: Performed By: #### EVARISTO BOWERS PREGU #### [facility] [address] [place] [address] Dr. Hebert Noyola Clarity (U) CLEAR Normal CLEAR [facility] Comment on above: Performed By: #### EVARISTO BOWERS PREGU #### [facility] [address] [place] [address] Dr. Hebert Noyola Color (U) LT. YELLOW Normal YELLOW [facility] Comment on above: Performed By: #### EVARISTO BOWERS PREGU #### [facility] [address] [place] [address] Dr. Hebert MEDLEY A micrscopic examination will be performed if indicated. Normal [facility] Comment on above: Performed By: #### EVARISTO BOWERS PREGU #### [facility] [address] [address] [address] Hebert Noyola Glucose Ql (U) Negative Normal NEGATIVE [facility] Comment on above: Performed By: #### EVARISTO BOWERS, PREGU #### [facility] [address] [address] [address] Hebert Noyola Hemoglobin Ql (U) TRACE-INTACT Abnormal NEGATIVE [facility] Comment on above: Performed By: #### ANGEL BOWERSICDELILAH, PREGU #### [facility] [address] [address] [address] Hebert Noyola Ketones Ql (U) Negative Normal NEGATIVE [facility] Comment on above: Performed By: #### EVARISTO BOWERS, PREGU #### [facility] [address] [place] [address] Dr. Hebert Noyola LEUKOCYTES Negative Normal NEGATIVE [facility] Comment on above: Performed By: #### EVARISTO BOWERS, PREGU #### [facility] [address] [address] [address] Hebert Noyola Nitrite Ql (U) Negative Normal NEGATIVE [facility] Comment on above: Performed By: #### EVARISTO BOWERS, PREGU #### [facility] [address] [place] [address] Dr. Hebert Noyola pH (U) 7.0 [pH] Normal 5-9 [facility] Comment on above: Performed By: #### EVARISTO BOWERS, PREGU #### [facility] [address] [address] [address] Hebert Noyola SPEC GRAVITY 1.015 Normal 1.005-<=1.025 [facility] Comment on above: Performed By: #### EVARISTO BOWERS, PREGU #### [facility] [address] [place] [address] Dr. Hebert Noyola UA PROTEIN Negative Normal NEGATIVE/ TRACE [facility] Comment on above: Performed By: #### EVARISTO BOWERS, PREGU #### [facility] [address] [place] [address] Dr. Hebert Noyola UR MICRO IND INDICATED Normal [facility] Comment on above: Performed By: #### EVARISTO BOWERS, PREGU #### [facility] [address] [place] [address] Dr. Hebert Noyola Urobilinogen Qn (U) 0.2 {Maddy'U}/dL Normal 0.2 - 1.0 [facility] Comment on above: Performed By: #### EVARISTO BOWERS, PREGU #### [facility] [address] [address] [address] Hebert Noyola URon 10-04-2022 , QUAL Negative Normal NEGATIVE [facility] Comment on above: Performed By: #### EVARISTO BOWERS, PREGU #### [facility] [address] [place] [address] Dr. Hebert Noyola URINE MICROSCOPIC ONLYon BACTERIA NONE SEEN Normal NONE SEEN [facility] Comment on above: Performed By: #### EVARISTO BOWERS, PREGU #### [facility] [address] [place] [address] Dr. Hebert Noyola Bacteria identified Cx Nom (U) NOT INDICATED Normal [facility] Comment on above: Performed By: #### EVARISTO BOWERS, PREGU #### [facility] [address] [place] [address] Dr. Hebert Noyola CAST NONE SEEN Normal NONE SEEN [facility] Comment on above: Performed By: #### EVARISTO BOWERS, PREGU #### [facility] [address] [address] [address] Hebert Noyola Crystals LM Nom (Urine sed) NONE SEEN Normal NONE SEEN [facility] Comment on above: Performed By: #### EVARISTO BOWERS, PREGU #### [facility] [address] [place] [address] Dr. Hebert Noyola Epithelial cells LM Ql (Urine sed) FEW Abnormal NONE SEEN /RARE [facility] Comment on above: Performed By: #### EVARISTO BOWERS, PREGU #### [facility] [address] [address] [address] Hebert Noyola MUCOUS NONE SEEN Normal NONE SEEN [facility] Comment on above: Performed By: #### EVARISTO BOWERS PREGU #### [facility] [address] [place] [address] Dr. Hebert Noyola RBC 0-2 Normal 0-2 [facility] Comment on above: Performed By: #### EVARISTO BOWERS PREGU #### [facility] [address] [place] [address] Dr. Hebert Noyola WBC NONE SEEN Normal NONE SEEN [facility] Comment on above: Performed By: #### EVARISTO BOWERS PREGU #### [facility] [address] [place] [address] Dr. Hebert Noyola WET PREPon 10-04-2022 CLUE CELLS NONE SEEN Normal NONE SEEN [facility] Comment on above: Performed By: #### W P #### [facility] [address] [place] [address] Dr. Hebert Noyola FUNGAL ELEMENTS NONE SEEN Normal NONE SEEN [facility] Comment on above: Performed By: #### W P #### [facility] [address] [place] [address] Dr. Hebert Noyola RBC -WET PREP FEW Abnormal NONE SEEN [facility] Comment on above: Performed By: #### W P #### [facility] [address] [place] [address] Dr. Hebert Noyola TRICHOMONAS NONE SEEN Normal NONE SEEN [facility] Comment on above: Performed By: #### W P #### [facility] [address] [place] [address] Dr. Hebert Noyola WBC- WET PREP FEW Abnormal NONE SEEN [facility] Comment on above: Performed By: #### W P #### [facility] [address] [place] [address] Dr. Hebert Noyola WET PREP BACTERIA FEW Abnormal NONE SEEN [facility] Comment on above: Performed By: #### W P #### [facility] [address] [place] [address] Dr. Hebert Noyola Physician Orderon 02-14-2021 Physician Order [id number] .00CD:127 Normal [facility] Coding Summary.on 09-02-2020 Coding Summary. CODING DATE: 09/01/2020 FINAL [facility] STATUS: Home (Routine DC) PAYOR: [employer] ADMIT DX: REASON FOR VISIT DX: Z11.51 [...] Bautista Date Saved: 09/01/2020 10:25 pm Normal [facility] PAP [id number] 08-30-2020 Cytology report Cyto stain Doc (Cvx/Vag) Note Invalid Interpretation Code [facility] Comment on above: Result Comment: TEST S RESULT FLAG UNITS REF RANGE LAB Clinician Provided Cytology Information Source.............Endocervix LMP / Prev Treat...BJD=[id number] No. of containers..01 ThinPrep Vial DIAGNOSIS: 01 NEGATIVE FOR INTRAEPITHELIAL LESION OR MALIGNANCY. THIS SPECIMEN WAS RESCREENED PART OF OUR SENIOR [employer] APPLICATION DEVELOPER PROGRAM. 01 Satisfactory for evaluation. No endocervical component is identified. 01 Mainor Batres, Job Placement Officer (ASCP) Kristan Perez, Supervisory Job Placement Officer (ASCP) 01 Note 01 The Pap [...] <-Panic Low,>-Panic High,A-Abnormal,AA-Critical Abnormal Performed at: [address] [id number] Amy Shelton MD, Performed By: #### 1 [id number] #### [facility] [address] [place] [address] HPV 16+18+31+33+35+39+ 45+51+52+56+58+59+ 66+68 DNA Probe+sig amp Ql (Cvx) Negative Invalid Interpretation Code Negative [facility] Comment on above: Result Comment: This nucleic acid amplification test detects fourteen high-risk HPV types (16,18,31,33,35,39,45,51,52,56,58,59,66,68) without differentiation. Performed at: [facility] [id number] MD Cat Reyse Performed at: =[address] [id number] MD Cat Reyes Performed By: #### 1 [id number] #### [facility] [address] [place] [address] PAP [id number] 08-23-2020 Collection Technique BRUSH-SPATULA Normal [facility] Comment on above: Performed By: #### 1 [id number] #### [facility] [address] [place] [address] Gynecological Body Site ENDOCERVIX Normal [facility] Comment on above: Performed By: #### 1 [id number] #### [facility] [address] [place] [address] LMP or Menopause Date [id number] Invalid Interpretation Code [facility] Comment on above: Performed By: #### 1 [id number] #### [facility] [address] [place] [address] Previous Cytology Negative Normal [facility] Comment on above: Performed By: #### 1 [id number] #### [facility] [address] [place] [address] Previous Treatment NONE Normal [facility] Comment on above: Performed By: #### 1 [id number] #### [facility] [address] [place] [address] Physician Orderon 08-23-2020 Physician Order [id number] 1.00CD:127 Normal [facility] Coding Summary.on 08-10-2020 Coding Summary. CODING DATE: 08/10/2020 FINAL [facility] STATUS: Home (Routine DC) PAYOR: Commercial [...] CphT Date Saved: 08/10/2020 05:40 pm Normal [facility] SARS-CoV-2, NAAon 08-09-2020 SARS-CoV-2 (COVID-19) RNA TREASURE+probe Ql (Resp) Detected Abnormal Not Detected [facility] Comment on above: Result Comment: This nucleic acid amplification test was developed and its performance characteristics determined by [employer]. Nucleic acid amplification tests include RT-PCR and [...] detected) result in this assay. Performed at: [facility] [id number] PhD Tae Lynne Performed By: #### S ARS-CoV-2, TREASURE #### [facility] [address] [place] [address] Physician Orderon 08-08-2020 Physician Order [id number]. 00CD:127 Normal [facility] Encounters Encounter Date Encounter Type Care [...] Facility:[facility] Payers Date Payer Category Payer Unknown [id number] 2.16.84 [id number] 1986 Unknown [id number] 2.16.84 [id number] 1986 Unknown [id number] [id number] .[id number] 1986 Unknown [id number] .[id number] 1986 Unknown [id number] [id number] .[id number] 1986 Unknown [id number] [id number] .[id number] 1986 Unknown [id number]. [id number] 1959 Private Health Insurance [id number] Summary Purpose Family History No Family History Records FoundNo Family History Records FoundNo Family History Records Found Advance Directives No Advanced Directives Records FoundNo Advanced Directives Records FoundNo Advanced Directives Records Found Additional Source Comments INFORMATION SOURCE (unrecogn ized section and content) DATE CREATED AUTHOR 02/15/[address] [facility] DATE CREATED AUTHOR AUTHOR'S ORGANIZ ATION 10/18/2022 [facility] DATE CREATED AUTHOR AUTHOR'S ORGANIZ ATION 06/18/2023 [facility] FOR RECORDS PERTAINING TO PATIENTS WHO [...] BE BASED ON THE PRIMARY CLINICAL RECORDS. [facility] [employer] provides no warranty or guarantee of the accuracy or completeness of information in this document.
--- NOTE | 2023-07-07 09:45 | PC.NURSE ---
Jamia and 2 week old Teresa arrive for support. Jamia states she has been feeding s lot Reviewed growth spurts and behaviors. Teresa to scales and weight is up 7 oz from previous weight on 07/02/2023. Reported 9 wet diapers with 5 large stools yesterday. Mom continues to offer 1 oz pumped milk after some of the feeds Only offers bottle if baby won't settle after breast feed. Nursing 30 minutes at the breast. Mom states does not mind supplementing with bottle as I know she is getting a measurable amount Mom states still anxious about how much she gets from the breast Discussed markers for adequate intake for baby. Mom responds she is meeting all of those wants to try to breastfeed more and just relax Encouraged to do the same. Aware of MOMS group and encouraged to attend. Leaves for appointment with Dr Higuera for BP check.
== END 2023-07-07 09:54 | disposition home or self-care (01) ==
LOC: FBCO 08:05
PROVIDERS: Visit Provider Obstetrics & Gynecology
DX: Z39.1 Encounter for care and examination of lactating mother (principal)
CPT/HCPCS: G0463

== ENCOUNTER 2023-10-14 20:52 | Outpatient (REF) | payer OTHER, SELFPAY ==
[2023-10-20 11:09] LABS: Age Gdln ACOG Testing Note (.); HPV Aptima Negative (Negative); IGP, Aptima HPV, rfx 16/18,45 Note (.)
== END 2023-10-14 20:53 | disposition home or self-care (01) ==
LOC: LAB 20:52
PROVIDERS: Visit Provider Obstetrics & Gynecology
DX: Z01.419 Encounter for gynecological examination (general) (routine) without abnormal findings (principal)
CPT/HCPCS: 87624; G0145

== ENCOUNTER 2023-10-17 16:00 | Outpatient (OUT) | payer OTHER, SELFPAY ==
[2023-10-17 16:17] LABS: Basophils Absolute Auto 0.1 10^3/uL (0.0-0.1); Basophils Percent Auto 0.8 % (0.2-2.0); Eosinophils Absolute Auto 0.4 10^3/uL (0.0-0.7); Eosinophils Percent Auto 4.9 % (0.9-7.0); Hematocrit 39.6 % (36.0-48.0); Hemoglobin 12.8 g/dL (12.0-16.0); Immature Granulocytes Abs Auto 0.02 10^3/uL (0.00-0.03); Immature Granulocytes Pct Auto 0.3 % (0.0-0.5); Lymphocytes Absolute Auto 2.3 10^3/uL (1.2-3.8); Mean Corpuscular HGB Conc 32.3 g/dL (29.9-35.2); Mean Corpuscular Volume 80.3 fL (81.0-99.0); Mean Platelet Volume 9.8 fL (9.5-13.5); Monocytes Absolute Auto 0.6 10^3/uL (0.3-0.8); Monocytes Percent Auto 8.3 % (1.7-12.0); Neutrophils Absolute Auto 4.1 10^3/uL (1.4-6.5); Neutrophils Percent Auto 54.7 % (43.0-75.0); Platelet Count 236 10^3/uL (150-450); Red Blood Count 4.93 10^6/uL (4.20-5.40); Red Cell Distribution Width 15.7 % (11.0-15.0); White Blood Count 7.5 10^3/uL (4.0-11.0)
--- OUTSIDE RECORDS SUMMARY | 2023-10-17 16:22 | XMS_ITS | CCD ---
Author Organization [facility] Care Team Providers Care Project Financial Analyst Name Role Phone PAY ., DR KING Attending Unavailable PAY ., DR KING Consulting Unavailable PAY ., DR KING Admitting Unavailable KALEN ., DR PERRY Attending Unavailable KALEN ., DR PERRY Consulting Unavailable KALEN ., DR PERRY Admitting Unavailable Kiki Piña MD Primary Care Provider PHOEBE RICE Attending Unavailable VICKY HIGUERA Attending Unavailable VICKY HIGUERA Attending Unavailable KALEN, VICKY Attending Unavailable PHOEBE RICE Attending Unavailable KIKI PIÑA Attending Unavailable KRYSTAL, PHOEBE Attending Unavailable KRYSTAL, PHOEBE Attending Unavailable VICKY HIGUERA Attending Unavailable VICKY HIGUERA Attending Unavailable Medications Current Medications Medication Drug Class(es) Dates Sig (Normalized) Sig (Original) labetalol hydrochloride 200 mg oral tablet (2 sources) beta-Adrenergic Zoya Start: 06-26-2023 End: 09-24-2023 take 1 tablet by mouth in the morning, then take 1 tablet by mouth in the evening, then take 1 tablet by mouth at bedtime labetalol (Normodyne) 200 MG tablet Indications: Essential hypertension (CMS/HCC) Take 1 tablet (200 mg) by mouth in the morning and 1 tablet (200 mg) in the evening and 1 tablet (200 mg) before bedtime. 270 tablet 0 06/26/2023 09/24/2023 Active sertraline 100 mg oral tablet (2 sources) Serotonin Reuptake Inhibitor Start: 04-08-2023 End: 04-07-2024 take 1 tablet by mouth in the morning sertraline (Zoloft) 100 MG tablet Indications: Anxiety Take 1 tablet (100 mg) by mouth in the morning. 90 tablet 3 04/08/2023 04/07/2024 Active Problems Active Problems Problem Classification Problem Date Documented Date Episodic/Chronic Anxiety disorders (2 sources) Anxiety; Translations: [Anxiety disorder, unspecified] Onset: 12-05-2022 12-05-2022 Chronic Essential hypertension (2 sources) Essential hypertension; Translations: [Essential (primary) hypertension] Onset: 12-05-2022 12-05-2022 Chronic Immunizations and screening for infectious disease (1 source) Encounter for screening for human papillomavirus (HPV); Translations: [ENC SCREENING HUMAN PAPILLOMAVIRUS] Onset: 10-13-2022 Episodic Malaise and fatigue (4 sources) Fatigue; Translations: [Chronic fatigue, unspecified] Onset: 05-19-2017 12-05-2022 Chronic Menstrual disorders (2 sources) Menometrorrhagia; Translations: [Excessive and frequent menstruation with irregular cycle] Onset: 12-05-2022 12-05-2022 Chronic Other screening for suspected conditions (not mental disorders or infectious disease) (4 sources) Encounter for screening for malignant neoplasm of cervix; Translations: [ENC SCREENING MALIG NEOPLASM CERV] Onset: 10-10-2022 Episodic Unclassified (3 sources) ENC OBS SUSP INSERTED FB RULED OUT; Translations: [ENC OBS SUSP INSERTED FB RULED OUT] Onset: 10-07-2022 Unclassified (2 sources) OB Reminders Onset: 01-07-2023 01-07-2023 Past or Other Problems Problem Classification Problem Date Documented Da te Episodic/Chronic Cardiac dysrhythmias (2 sources) Tachycardia; Translations: [Tachycardia, unspecified] Onset: 12-05-2022 12-05-2022 Episodic Unclassified (1 source) ENC OBS SUSP INSERTED FB RULED OUT; Translations: [ENC OBS SUSP INSERTED FB RULED OUT] Onset: 10-04-2022 Results Test Name Value Interpretation Reference Range Facility PAP ACOG PANEL 2: 30 to 65on 10-17-2022 . . Normal [facility] Comment on above: Result Comment: Perf ormed at: WB Performed By: #### [id number] #### [facility] [address] [place] [address] Dr. Hebert Noyola Age Gdln ACOG Testing 30-65 Normal [facility] Comment on above: Performed By: #### 4 [id number] #### [facility] [address] [place] [address] Dr. Hebert Noyola DIAGNOSIS: Comment Normal [facility] Comment on above: Result Comment: NEGA TIVE FOR INTRAEPITHELIAL LESION OR MALIGNANCY. Performed at: WB Performed By: #### 4 [id number] #### [facility] [address] [place] [address] Dr. Hebert Noyola HPV Aptima Negative Normal Negative [facility] Comment on above: Result Comment: This nucleic acid amplification test detects fourteen high-risk HPV types (16,18,31,33,35,39,45,51,52,56,58,59,66,68) without differentiation. Performed at: =G Performed By: #### 4 [id number] #### [facility] [address] [place] [address] Dr. Hebert Noyola HPV Genotype Reflex Comment Normal [facility] Comment on above: Result Comment: Crit eria not met, HPV Genotype not performed. Performed at: WB Performed By: #### 4 [id number] #### [facility] [address] [place] [address] Dr. Hebert Noyola Methodology: Comment Normal [facility] Comment on above: Result Comment: This liquid based ThinPrep(R) pap test was screened with the use of an image guided system. Performed at: WB Performed By: #### 4 [id number] #### [facility] [address] [place] [address] Dr. Hebert Noyola Note: Comment Normal [facility] Comment on above: Result Comment: The Pap smear is a screening test designed to aid in the detection of premalignant and malignant conditions of the uterine cervix. It is not a diagnostic procedure and should not be used as the sole means of detecting cervical cancer. Both false-positive and false-negative reports do occur. . Performed at: WB Performed By: #### 4 [id number] #### [facility] [address] [place] [address] Dr. Hebert Noyola Performed by: Comment Normal [facility] Comment on above: Result Comment: Elizabeth Batres, Miniature Train Driver (ASCP) Performed at: WB Performed By: #### 4 [id number] #### [facility] [address] [place] [address] Dr. Hebert Noyola Specimen adequacy: Comment Normal [facility] Comment on above: Result Comment: Sati sfactory for evaluation. Endocervical and/or squamous metaplastic cells (endocervical component) are present. Performed at: WB Performed By: #### 4 [id number] #### [facility] [address] [place] [address] Dr. Hebert Noyola CHLAMYDIA/GONOCOCCUS TREASURE ( AB/URINE/PAPon 10-08-2022 Chlamydia trachomatis, TREASURE Negative Normal Negative [facility] Comment on above: Performed By: #### C T/NGNA #### [facility] [address] [place] [address] Dr. Hebert Noyola Neisseria gonorrhoeae, TREASURE Negative Normal Negative [facility] Comment on above: Performed By: #### C T/NGNA #### [facility] [address] [place] [address] Dr. Hebert Noyola ER URINE PROFILEon 3 Bilirubin Ql (U) Negative Normal NEGATIVE [facility] Comment on above: Performed By: #### E RURANGELICDELILAH, PREGU #### [facility] [address] [place] [address] Dr. Hebert Noyola Clarity (U) CLEAR Normal CLEAR [facility] Comment on above: Performed By: #### E RURANGELICRO, PREGU #### [facility] [address] [place] [address] Dr. Hebert Noyola Color (U) LT. YELLOW Normal YELLOW [facility] Comment on above: Performed By: #### E RUR UMICRO, PREGU #### [facility] [address] [place] [address] Dr. Hebert Noyola ERUAHD A micrscopic examination will be performed if indicated. Normal [facility] Comment on above: Performed By: #### E RUR UMICRO, PREGU #### [facility] [address] [place] [address] Dr. Hebert Noyola Glucose Ql (U) Negative Normal NEGATIVE [facility] Comment on above: Performed By: #### E RUR, UMICRO, PREGU #### [facility] [address] [address] [address] Hebert Noyola Hemoglobin Ql (U) TRACE-INTACT Abnormal NEGATIVE [facility] Comment on above: Performed By: #### E RUR, UMICRO, PREGU #### [facility] [address] [address] [address] Hebert Noyola Ketones Ql (U) Negative Normal NEGATIVE [facility] Comment on above: Performed By: #### E RUR, UMICRO, PREGU #### [facility] [address] [place] [address] Dr. Hebert Noyola LEUKOCYTES Negative Normal NEGATIVE [facility] Comment on above: Performed By: #### E RUR, UMICRO, PREGU #### [facility] [address] [address] [address] Hebert Noyola Nitrite Ql (U) Negative Normal NEGATIVE [facility] Comment on above: Performed By: #### E RUR, UMICRO, PREGU #### [facility] [address] [address] [address] Hebert Noyola pH (U) 7.0 [pH] Normal 5-9 [facility] Comment on above: Performed By: #### E RUR, UMICRO, PREGU #### [facility] [address] [address] [address] Hebert Noyola SPEC GRAVITY 1.015 Normal 1.005-<=1.025 [facility] Comment on above: Performed By: #### E RUR, UMICRO, PREGU #### [facility] [address] [address] [address] Hebert Noyola UA PROTEIN Negative Normal NEGATIVE/ TRACE [facility] Comment on above: Performed By: #### E RUR, UMICRO, PREGU #### [facility] [address] [address] [address] Hebert Noyola UR MICRO IND INDICATED Normal [facility] Comment on above: Performed By: #### E EVARISTO TYLER, PREGU #### [facility] [address] [place] [address] Dr. Hebert Noyola Urobilinogen Qn (U) 0.2 {Maddy'U}/dL Normal 0.2 - 1.0 [facility] Comment on above: Performed By: #### EVARISTO BOWERS, PREGU #### [facility] [address] [place] [address] Dr. Hebert Noyola URon 10-04-2022 , QUAL Negative Normal NEGATIVE [facility] Comment on above: Performed By: #### EVARISTO BWOERS, PREGU #### [facility] [address] [place] [address] Dr. Hebert Noyola URINE MICROSCOPIC ONLYon BACTERIA NONE SEEN Normal NONE SEEN [facility] Comment on above: Performed By: #### EVARISTO BOWERS, PREGU #### [facility] [address] [place] [address] Dr. Hebert Noyola Bacteria identified Cx Nom (U) NOT INDICATED Normal [facility] Comment on above: Performed By: #### EVARISTO BOWERS, PREGU #### [facility] [address] [place] [address] Dr. Hebert Noyola CAST NONE SEEN Normal NONE SEEN [facility] Comment on above: Performed By: #### EVARISTO BOWERS, PREGU #### [facility] [address] [place] [address] Dr. Hebert Noyola Crystals LM Nom (Urine sed) NONE SEEN Normal NONE SEEN [facility] Comment on above: Performed By: #### EVARISTO BOWERS, PREGU #### [facility] [address] [place] [address] Dr. Hebert Noyola Epithelial cells LM Ql (Urine sed) FEW Abnormal NONE SEEN /RARE [facility] Comment on above: Performed By: #### Thom RURANGELICRO, PREGU #### [facility] [address] [place] [address] Dr. Hebert Noyola MUCOUS NONE SEEN Normal NONE SEEN [facility] Comment on above: Performed By: #### EVARISTO BOWERS, PREGU #### [facility] [address] [place] [address] Dr. Hebert Noyola RBC 0-2 Normal 0-2 [facility] Comment on above: Performed By: #### E EVARISTO TYLER, PREGU #### [facility] [address] [place] [address] Dr. Hebert Noyola WBC NONE SEEN Normal NONE SEEN [facility] Comment on above: Performed By: #### EVARISTO BOWERS, PREGU #### [facility] [address] [address] [address] Hebert Noyola WET PREPon 10-04-2022 CLUE CELLS NONE SEEN Normal NONE SEEN [facility] Comment on above: Performed By: #### W P #### [facility] [address] [place] [address] Dr. Hebert Noyola FUNGAL ELEMENTS NONE SEEN Normal NONE SEEN [facility] Comment on above: Performed By: #### W P #### [facility] [address] [address] [address] Hebert Noyola RBC -WET PREP FEW Abnormal NONE SEEN [facility] Comment on above: Performed By: #### W P #### [facility] [address] [place] [address] Dr. Hebert Noyola TRICHOMONAS NONE SEEN Normal NONE SEEN [facility] Comment on above: Performed By: #### W P #### [facility] [address] [place] [address] Dr. Hebert Noyola WBC- WET PREP FEW Abnormal NONE SEEN [facility] Comment on above: Performed By: #### W P #### [facility] [address] [place] [address] Dr. Hebert Noyola WET PREP BACTERIA FEW Abnormal NONE SEEN [facility] Comment on above: Performed By: #### W P #### [facility] [address] [place] [address] Dr. Hebert Noyola Physician Orderon 02-14-2021 Physician Order [id number] .[id number]:127 Normal [facility] Coding Summary.on 09-02-2020 Coding Summary. CODING DATE: 09/01/2020 FINAL [facility] STATUS: Home (Routine DC) PAYOR: Ashley ADMIT [...] Bautista Date Saved: 09/01/2020 10:25 pm Normal [facility] PAP [id number] 08-30-2020 Cytology report Cyto stain Doc (Cvx/Vag) Note Invalid Interpretation Code [facility] Comment on above: Result Comment: TEST S RESULT FLAG UNITS REF RANGE LAB Clinician Provided Cytology Information Source.............Endocervix LMP / Prev Treat...[id number]=[id number] No. of containers..01 ThinPrep Vial DIAGNOSIS: 01 NEGATIVE FOR INTRAEPITHELIAL LESION OR MALIGNANCY. THIS SPECIMEN WAS RESCREENED PART OF OUR CONSTRUCTION COORDINATOR PROGRAM. 01 Satisfactory for evaluation. No endocervical component is identified. 01 Mainor Batres, Miniature Train Driver (ASCP) 01 Kristan Perez, Supervisory Miniature Train Driver (ASCP) 01 Note 01 The Pap smear [...] <-Panic Low,>-Panic High,A-Abnormal,AA-Critical Abnormal Performed at: [address] [id number] Amy Shelton MD, Performed By: #### 1 [id number] #### [facility] [address] [place] [address] HPV 16+18+31+33+35+39+ 45+51+52+56+58+59+ 66+68 DNA Probe+sig amp Ql (Cvx) Negative Invalid Interpretation Code Negative [facility] Comment on above: Result Comment: This nucleic acid amplification test detects fourteen high-risk HPV types (16,18,31,33,35,39,45,51,52,56,58,59,66,68) without differentiation. Performed at: [facility] [id number] MD Cat Reyes Performed at: =G [address] [id number] MD Cat Reyes Performed By: #### 1 [id number] #### [facility] [address] [place] [address] PAP [id number] 08-23-2020 Collection Technique BRUSH-SPATULA Normal [facility] Comment on above: Performed By: #### 1 [id number] #### [facility] [address] [place] [address] Gynecological Body Site ENDOCERVIX Normal [facility] Comment on above: Performed By: #### 1 [id number] #### [facility] [address] [place] [address] LMP or Menopause Date [id number] Invalid Interpretation Code [facility] Comment on above: Performed By: #### 1 [id number] #### [facility] [address] [place] [address] Previous Cytology Negative Normal [facility] Comment on above: Performed By: #### 1 [id number] #### [facility] [address] [place] [address] Previous Treatment NONE Normal [facility] Comment on above: Performed By: #### 1 [id number] #### [facility] [address] [place] [address] Physician Orderon 08-23-2020 Physician Order [id number]:127 Normal [facility] Coding Summary.on 08-10-2020 Coding Summary. CODING DATE: 08/10/2020 FINAL [facility] STATUS: Home (Routine DC) PAYOR: Commercial Insurance [...] CphT Date Saved: 08/10/2020 05:40 pm Normal [facility] SARS-CoV-2, NAAon 08-09-2020 SARS-CoV-2 (COVID-19) RNA TREASURE+probe Ql (Resp) Detected Abnormal Not Detected [facility] Comment on above: Result Comment: This nucleic acid amplification test was developed and its performance characteristics determined by [employer] Nucleic acid amplification tests include RT-PCR and [...] detected) result in this assay. Performed at: [facility] [id number] PhD Tae Lynne Performed By: #### S ARS-CoV-2, TREASURE #### [facility] [address] [place] [address] Physician Orderon 08-08-2020 Physician Order [id number]. [id number]:127 Normal [facility] Vital Signs Date Time Vital Sign Value Performing Clinician Jeanine dejesus 07-21-2023 09:39-0500 Body mass index (BMI) [Ratio] 22.09 kg/m2 [facility] [employer] Work Phone: [facility] 07-21-2023 09:39-0500 Body weight 71.85 kg [facility] [employer] Work Phone: [facility] 07-21-2023 09:39-0500 Diastolic blood pressure 82 mm[Hg] [employer] Work Phone: [facility] 07-21-2023 09:39-0500 Systolic blood pressure 136 mm[Hg] [facility] [employer] Work Phone: [facility] Encounters Encounter Date Encounter Type Care Provider Facility Start: 10-14-2023 End: 10-14-2023 ambulatory VICKY HIGUERA Not Available Start: 10-07-2023 End: 10-07-2023 ambulatory KIKI PIÑA Not Available Start: 08-04-2023 End: 08-04-2023 ambulatory PHOEBE KRYSTAL Not Available Start: 07-21-2023 End: 07-21-2023 ambulatory VICKY HIGUERA Not Available Start: 07-21-2023 End: 07-21-2023 Patient encounter status Vicky Kalen DO Work Phone: [facility] Work Phone: Start: 07-21-2023 End: 07-21-2023 care visit Vicky Kalen DO Work Phone: [facility] Comment on above: BP check Start: 07-07-2023 End: 07-07-2023 ambulatory VICKY HIGUERA Not Available Start: 06-17-2023 End: 06-17-2023 ambulatory PHOEBE RICE Not Available Start: 06-10-2023 End: 06-10-2023 ambulatory VICKY KALEN Not Available Start: 05-28-2023 End: 05-28-2023 ambulatory PHOEBE RICE Not Available Start: 05-14-2023 End: 05-14-2023 ambulatory PHOEBE KRYSTAL Not Available Start: 04-30-2023 End: 04-30-2023 ambulatory VICKY HIGUERA Not Available Start: 10-10-2022 End: 10-10-[address] VICKY HIGUERA . Facility: Start: 10-04-2022 End: 10-04-[address] FERNANDO COON . Facility: Procedures Date Procedure Procedure Detail Performing Clinician Start: 10-08-2022 Microscopic observat ion [Identifier] in Cervix by Cyto stain Vicky Kalen DO Work Phone: Plan of Treatment Date Care Activity Detail Author Start: 10-09-2027 Screening for malign ant neoplasm of cervix [facility] Start: 10-14-2023 End: 10-14-2023 Patient encounter procedure 10/14/2023 8:30 AM EDT Office Visit [facility] [address] [place] [id number] Vicky Higuera, DO [address] [facility] [address] [place] [place], [place] [id number] [facility] Start: 08-04-2023 End: 08-04-2023 ambulatory 08/04/2023 9:30 AM EST Visit [facility] [address] [place] [address] Phoebe Rice PA [address] [place], [place] [id number] [facility] Start: 02-14-2023 Influenza vaccination Influenza Vacc ine (#1) [facility] Immunizations Immunization Date Immunization Notes Care Provider Jamison wayne 04-07-2019 influenza virus vacc ine, unspecified formulation Vicky Higuera DO Work Phone: [facility] Payers Date Payer Category Payer Managed Care O (unspecified) [employer] [id number] 2021-Present [address] [place] [address] O [id number] 1986 Unknown [id number] [id number]. 2.59 1986 Unknown [id number] 2.840.1.412629.3.579. 2.593 1986 Unknown [id number] 2.840.1.182458.3.579. 2.1258 1986 Unknown [id number] 2.16840.1.759611.3.579. 2.9 1986 Unknown [id number] 2.16840.1.781977.3.579. 2.1259 1986 Unknown [id number] 2.16840.1.733263.3.579. 2.1259 1986 Unknown [id number] 2.16.840.1.010370.3.579. 2.9 1986 Unknown [id number] 2.16.840.1.749667.3.579. 2.9 1986 Unknown [id number] 2.16.840.1.478796.3.579. 2.1258 1986 Unknown [id number] 2.16.840.1.387900.3.579. 2.1258 1986 Unknown [id number] 2.16.840.1.970862.3.579. 2.1258 1986 Unknown [id number] 2.16.840.1.199679.3.579. 2.1259 1959 Private Health Insurance [id number] Social History Date Type Detail Facility Start: 01-07-2023 Tobacco smoking status HIIS Never sm oked tobacco [facility] Start: 07-21-2023 Alcohol intake Current drinke r of alcohol (finding) [facility] Start: 01-07-2023 End: 04-16-2023 [facility] Start: 01-07-2023 End: 04-16-2023 Alcohol Use Disorder Identification Test - Consumption [AUDIT-C] [facility] How often to you hav e a drink containing alcohol? Monthly or less [facility] How many standard dr inks containing alcohol do you have on a typical day? 1 or 2 [facility] How often do you hav e 6 or more drinks on 1 occasion? Never [facility] Start: 01-07-2023 Alcohol Comment occasional / A lcohol: 1 or 2 drinks on a typical day/monthly or less [facility] Start: 1985 Sex Assigned At Female [facility] Start: 11-29-2022 Gender identity Identifies as female gender (finding) [facility] Goals Date Patient Goal Desired Activity /State Personal health goal History of Present illness Narrative 07-21-2023 Vicky Higuera DO - 07/21/2023 9:20 AM EST Note Date & Type Note Facility 07-21-2023 History of Presen t illness Narrative Reason for Appointment: Patient ID: Jamia Palma is a 38 y.o. female who presents for Blood Pressure Check Patient presents today for Medication Follow Up appointment. Current Medications: has a current medication list which includes the following prescription(s): labetalol and sertraline. Medical History: Active Ambulatory Problems Diagnosis Date Noted Anxiety 12/05/2022 Chronic fatigue 12/05/2022 Essential hypertension (CMS/HCC) 12/05/2022 Menometrorrhagia 12/05/2022 Tachycardia 12/05/2022 Chronic fatigue syndrome 05/19/2017 Resolved Ambulatory Problems Diagnosis Date Noted No Resolved Ambulatory Problems Past Medical History: Diagnosis Date BMI 21.0-21.9, adult Broken wrist, left Encounter for gynecological examination (general) (routine) without abnormal findings HTN (hypertension) (CMS/HCC) White coat syndrome with hypertension (CMS/HCC) Family History Problem Relation Name Age of Onset Hypertension Mother Hypertension Father Heart disease Maternal Grandmother Heart disease Maternal Grandfather Diabetes Paternal Grandmother Social History Tobacco Use Smoking status: Never Smokeless tobacco: Not on file Substance Use Topics Alcohol use: Yes Comment: occasional / Alcohol: 1 or 2 drinks on a typical day/monthly or less Drug use: Not on file Past Surgical History: Procedure Laterality Date PAP SMEAR 10/08/2022 negative No Known Allergies Review of Systems: Review of Systems Constitutional: Negative. HENT: Negative. Eyes: Negative. Respiratory: Negative. Cardiovascular: Negative. Gastrointestinal: Negative. Genitourinary: Negative. Musculoskeletal: Negative. Skin: Negative. Neurological: Negative. All other systems reviewed and are negative. Hematological: Negative. Endocrine: Negative. Allergic/Immunologic: Negative. Objective Physical Exam Constitutional: Appearance: Normal appearance. She is well-developed. Cardiovascular: Rate and Rhythm: Normal rate and regular rhythm. Pulmonary: Effort: Pulmonary effort is normal. Breath sounds: Normal breath sounds. Abdominal: General: Bowel sounds are normal. There is no distension. Palpations: Abdomen is soft. Tenderness: There is no abdominal tenderness. There is no guarding or rebound. Musculoskeletal: General: No swelling. Normal range of motion. Right lower leg: No edema. Left lower leg: No edema. Neurological: Mental Status: She is alert and oriented to person, place, and time. Skin: General: Skin is warm and dry. Psychiatric: Mood and Affect: Mood normal. Behavior: Behavior normal. Vitals and nursing note reviewed. Exam conducted with a record center coordinator present. Vitals: Estimated body mass index is 22.09 kg/m as calculated from the following: Height as of 12/06/22: 5' 11 . Weight as of this encounter: 158 lb 6.4 oz. BP: 136/82 Patient's last menstrual period was 09/30/2022. Assessment/Plan Encounter Diagnosis Name Primary? BP check Discussed meds, will cont to decrease, fu as schedule precautions given Documented by Vicky Higuera DO on behalf of: Vicky Higuera DO documented in this encounter [facility] Evaluation note Note Date & Type Note Facility Evaluation note Diagnosis BP check Screening for hypertension documented in this encounter [facility] Summary Purpose Family History No Family History Records FoundNo Family History Records FoundNo Family History Records Found Advance Directives No Advanced Directives Records FoundNo Advanced Directives Records FoundNo Advanced Directives Records Found Additional Source Comments INFORMATION SOURCE (unrecogn ized section and content) DATE CREATED AUTHOR 02/15/2021 [facility] DATE CREATED AUTHOR AUTHOR'S ORGANIZ ATION [facility] DATE CREATED AUTHOR AUTHOR'S ORGANIZ ATION 10/15/2023 [facility] Reason for Visit (unrecogniz ed section and content) Reason Comments Blood Pressure Check Care Teams (unrecognized sec tion and content) Project Financial Analyst Relationship Specialty Start Date End Date Kiki Piña MD [address] [place] [id number] PCP - General Family Medicine 12/06/22 FOR RECORDS PERTAINING TO PATIENTS WHO ARE [...] BE BASED ON THE PRIMARY CLINICAL RECORDS. [email or web address] provides no warranty or guarantee of the accuracy or completeness of information in this document.
[2023-10-17 16:58] LABS: Thyroid Stimulating Hormone 1.464 uIU/mL (0.358-3.740)
[2023-10-17 17:04] LABS: Free T4 0.77 ng/dL (0.76-1.46)
== END 2023-10-17 16:01 | disposition home or self-care (01) ==
LOC: LAB 16:00
PROVIDERS: Visit Provider Obstetrics & Gynecology
DX: L65.9 Nonscarring hair loss, unspecified (principal)
CPT/HCPCS: 36415; 84439; 84443; 85025

== ENCOUNTER 2024-10-14 15:08 | Outpatient (REF) | payer OTHER, SELFPAY ==
[2024-10-18 17:08] LABS: Age Gdln ACOG Testing Note (.); HPV Aptima Negative (Negative); IGP, Aptima HPV, rfx 16/18,45 Note (.)
== END 2024-10-14 15:09 | disposition home or self-care (01) ==
LOC: LAB 15:08
PROVIDERS: Visit Provider Obstetrics & Gynecology
DX: Z01.419 Encounter for gynecological examination (general) (routine) without abnormal findings (principal)
CPT/HCPCS: 87624; 88175